=== PATIENT | male | born 1950 | race Caucasian/White ===

== ENCOUNTER 2018-02-13 16:43 | Inpatient (IN) | payer MEDICARE, OTHER ==
[~2018-02-13] VITALS: Ht 185.4 cm; Wt 109.3 kg
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
--- NOTE | 2018-02-13 17:32 | EKG ---
[address] [address] Test Date: 2018-02-13 Test Time: 17:27:51 Pat Name: ANTHONY TATUM Department: Room: Gender: M Loans Officer: : 1950 Requested By: XIOMARA HERRERA Order Number: [id number] Reading MD: Omar Hansen MD Measurements Intervals [place] Rate: 72 P: 47 NC: 168 QRS: 7 QRSD: 88 T: 19 QT: 368 QTc: 404 Interpretive Statements SINUS RHYTHM Electronically Signed On 02-14-2018 12:48:43 CDT by Omar Hansen MD
[2018-02-13 18:41] LABS: BASO % 0 % (0-3); EOS # 0.1 x10^3/uL (0.0-0.7); EOS % 1 % (0-3); HEMATOCRIT 38.2 % (39.0-53.0); HEMOGLOBIN 12.5 g/dL (13.0-17.5); LYMPH # 2.3 x10^3/uL (1.0-4.8); LYMPH % 21 % (24-48); MEAN CORPUSCULAR HEMOGLOBIN 26 pg (25-35); MEAN CORPUSCULAR HGB CONC 33 g/dL (31-37); MEAN CORPUSCULAR VOLUME 79 fL (79-100); MONO # 0.6 x10^3/uL (0.0-1.1); MONO % 6 % (0-9); NEUT # 7.8 x10^3uL (1.8-7.7); NEUT % 72 % (31-73); PLATELET COUNT 291 x10^3/uL (140-400); RED BLOOD COUNT 4.87 x10^6/uL (4.30-5.70); RED CELL DISTRIBUTION WIDTH 14.4 % (11.5-14.5); WHITE BLOOD COUNT 10.9 x10^3/uL (4.0-11.0)
[2018-02-13 18:53] LABS: ALBUMIN 3.2 g/dL (3.4-5.0); CALCIUM 8.3 mg/dL (8.5-10.1); CREATININE 1.3 mg/dL (0.7-1.3); DIRECT BILIRUBIN 0.1 mg/dL (0.0-0.2); GFR 54.7; POTASSIUM 3.5 mmol/L (3.5-5.1); TOTAL BILIRUBIN 0.3 mg/dL (0.2-1.0); TOTAL PROTEIN 7.1 g/dL (6.4-8.2)
[2018-02-13 19:28] LABS: BACTERIA,URINE MANY /HPF (0-FEW); BILIRUBIN,URINE NEG (NEG); CLARITY,URINE CLEAR; COLOR,URINE YELLOW; GLUCOSE,URINE NEG (NEG); NITRITE,URINE NEG (NEG); RBC,URINE 0 /HPF (0-2); UROBILINOGEN,URINE 0.2 mg/dL (0.2 mg/dL); WBC,URINE >40 /HPF (0-4)
[2018-02-13] MEDS ORDERED: MAGNESIUM CHLORIDE ER 64 MG TABLET.ER PO ONE (20:00)
[2018-02-13] MEDS ORDERED: MAG HYDROX/AL HYDROX/SIMETH 30 ML ORAL.SUSP PO PRN (21:30)
[2018-02-13] MEDS ORDERED: MAGNESIUM HYDROXIDE 2,400 MG/30 ML ORAL.SUSP. PO PRN (21:30)
[2018-02-13] MEDS ORDERED: METHYL SALICYLATE/MENTHOL TOPICAL OINTMENT 29GM TUBE. TP PRN (21:30)
[2018-02-13] MEDS ORDERED: ACETAMINOPHEN 325 MG TABLET PO PRN (21:30)
[2018-02-13 21:59] VITALS: BP 132/53
[2018-02-13] MEDS ORDERED: CLOP75TA PO (22:15)
[2018-02-13] MEDS ORDERED: LEVO100T5 PO (22:15)
[2018-02-13] MEDS ORDERED: SPIR25TA PO (22:15)
[2018-02-13] MEDS ORDERED: OXYC5CAP PO (22:15)
[2018-02-13] MEDS ORDERED: MELA3TAB2 PO (22:15)
[2018-02-13] MEDS ORDERED: TRAZ-85 PO (22:15)
[2018-02-13] MEDS ORDERED: OMEP20TA8 PO (22:15)
[2018-02-13] MEDS ORDERED: ACET325T9 PO (22:15)
[2018-02-13] MEDS ORDERED: FLUO40CA2 PO (22:15)
[2018-02-13] MEDS ORDERED: POTA20TA4 PO (22:15)
[2018-02-13] MEDS ORDERED: FLUO20TA11 PO (22:15)
[2018-02-13] MEDS ORDERED: ESTR1TAB15 PO (22:15)
[2018-02-13] MEDS ORDERED: QUET50TA5 PO (22:15)
[2018-02-13] MEDS ORDERED: INSU100I13 SQ (22:15)
[2018-02-13] MEDS ORDERED: DILT90TA PO (22:15)
[2018-02-13] MEDS ORDERED: PRAZ2CAP2 PO (22:15)
[2018-02-13] MEDS ORDERED: DEXTROSE 50% 25 GM / 50ML DISP.SYRIN. IV PRN (22:30)
[2018-02-13] MEDS: QUEtiapine 50 MG TABLET. PO SCH (23:25)
[2018-02-13] MEDS: MELATONIN 3 MG TABLET PO SCH (23:26)
[2018-02-13] MEDS: PRAZOSIN 1 MG CAPSULE. PO SCH (23:26)
[2018-02-13] MEDS: traZODone 50 MG TABLET. PO SCH (23:26)
[2018-02-13] MEDS: INSULIN GLARGINE 300 UNITS/3 ML INSULN.PEN. SQ SCH (23:29)
[2018-02-14 05:56] VITALS: BP 125/47
[2018-02-14] MEDS: FLUoxetine HCL 20 MG CAPSULE PO SCH (07:49)
[2018-02-14] MEDS: PANTOPRAZOLE 40 MG TABLET. PO SCH (07:49)
[2018-02-14] MEDS: LEVOTHYROXINE 100 MCG TABLET PO SCH (07:49)
[2018-02-14] MEDS: POTASSIUM CHLORIDE 20 MEQ TABLET.ER. PO SCH (07:49)
[2018-02-14] MEDS: CLOPIDOGREL BISULFATE 75 MG TABLET PO SCH (07:49)
[2018-02-14] MEDS: dilTIAZem HCL 30 MG TABLET PO SCH (07:50)
[2018-02-14] MEDS: NICOTINE 14MG PATCH. TD SCH (07:53)
[2018-02-14] MEDS: ESTRADIOL 1 MG TABLET PO SCH (07:54)
[2018-02-14] MEDS: SPIRONOLACTONE 25 MG TABLET PO SCH (07:54)
[2018-02-14] MEDS: INSULIN LISPRO 300 UNITS/3 ML INSULN.PEN. SQ SCH ×3 (08:00→17:00)
[2018-02-14] MEDS ORDERED: NON FORMULARY ITEM (Fluoxetine Hcl 40 MG) PO SCH (09:00)
[2018-02-14 14:26] LABS: THYROID STIM HORMONE (TSH) 3.367 uIU/mL (0.358-3.740)
[2018-02-14] MEDS: MAGNESIUM OXIDE 400 MG TABLET PO SCH ×2 (14:36→20:30)
[2018-02-14 15:47] VITALS: BP 135/77
[2018-02-14 19:08] LABS: THYROXINE 9.1 ug/dL (4.5-12.0)
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
[2018-02-14] MEDS: QUEtiapine 50 MG TABLET. PO SCH (20:29)
[2018-02-14] MEDS: traZODone 50 MG TABLET. PO SCH (20:29)
[2018-02-14] MEDS: MELATONIN 3 MG TABLET PO SCH (20:30)
[2018-02-14] MEDS: PRAZOSIN 1 MG CAPSULE. PO SCH (20:30)
[2018-02-14] MEDS: INSULIN GLARGINE 300 UNITS/3 ML INSULN.PEN. SQ SCH (20:34)
--- NOTE | 2018-02-14 20:49 | PDOC ---
Exam Note: Giovanny Note: Please also refer to the separate dictated note~for this date of service dictated separately.~Patient seen individually. Discussed the patient with Nursing staff reviewed the chart.~Reviewed interim history and current functioning. Reviewed vital signs,~Labs/ Radiology~and current medications noted below. Continue current treatment with the changes noted in the dictated addendum note Assessment: Vital Signs: Vital Signs Date Time Temp Pulse Resp B/P (MAP) Pulse Ox O2 Delivery O2 Flow Rate FiO2 02/14/18 20:30 98 135/77 02/14/18 15:47 97.3 20 97 02/13/18 21:59 Room Air I&O Intake and Output 02/14/18 07:00 # Voids 1 Labs: Laboratory Tests Test 02/13/18 22:54 02/14/18 07:18 02/14/18 11:43 02/14/18 16:47 Glucose (Fingerstick) 121 mg/dL (70-99) H 139 mg/dL (70-99) H 268 mg/dL (70-99) H 136 mg/dL (70-99) H Test 02/14/18 19:32 Glucose (Fingerstick) 196 mg/dL (70-99) H Current Medications: Meds: Current Medications Magnesium Chloride (Mag Delay) 64 mg 1X ONCE PO Last administered on at 20:39; Start 02/13/18 at 20:00; Stop 02/13/18 at 20:01; Status DC Acetaminophen (Tylenol) 650 mg PRN Q6HRS PRN PO PAIN / TEMP; Start 02/13/18 at 21:30; Stop 02/13/18 at 22:41; Status DC Multi-Ingredient Ointment (Analgesic [place]) 1 valerie PRN QID PRN TP MUSCLE PAIN; Start 02/13/18 at 21:30 Al Hydroxide/Mg Hydroxide (Mylanta Plus Xs) 15 ml PRN AFTMEALHC PRN PO DYSPEPSIA; Start 02/13/18 at 21:30 Magnesium Hydroxide (Milk Of Magnesia) 2,400 mg PRN QHS PRN PO CONSTIPATION; Start 02/13/18 at 21:30 Nicotine (Nicoderm Cq 14mg) 1 patch DAILY TD Last administered on 02/14/18at 07: 53; Start 02/14/18 at 09:00 Estradiol (Estrace) 1 mg DAILY PO Last administered on 02/14/18 07:54; Start 02/14/18 at 09:00 Fluoxetine HCl (PROzac) 60 mg DAILY PO Last administered on 02/14/18 07:49; Start 02/14/18 at 09:00 Non-Formulary Medication (Fluoxetine Hcl ) 40 mg DAILY PO ; Start 02/14/18 at 09 :00; Stop 02/14/18 at 09:00; Status DC Melatonin 6 mg QHS PO Last administered on 02/14/18 20:30; Start 02/13/18 at 23:00 Quetiapine Fumarate (SEROquel) 50 mg QHS PO Last administered on 02/14/18 20: 29; Start 02/13/18 at 23:00 Trazodone HCl (Desyrel) 50 mg QHS PO Last administered on 02/14/18 20:29; Start 02/13/18 at 23:00 Acetaminophen (Tylenol) 650 mg PRN Q6HRS PRN PO PAIN / TEMP; Start 02/13/18 at 22:30 Clopidogrel Bisulfate (Plavix) 75 mg DAILY PO Last administered on 02/14/18 07 :49; Start 02/14/18 at 09:00 Insulin Glargine (Lantus) 32 units QHS SQ Last administered on 02/14/18 20:34 ; Start 02/13/18 at 23:00 Levothyroxine Sodium (Synthroid) 100 mcg DAILYAC PO Last administered on 07:49; Start 02/14/18 at 07:30 Potassium Chloride (Klor-Con) 20 meq DAILY PO Last administered on 02/14/18at 07 :49; Start 02/14/18 at 09:00 Diltiazem HCl (Cardizem) 45 mg DAILY PO ; Start 02/14/18 at 09:00 Pantoprazole Sodium (Protonix) 40 mg DAILYAC PO Last administered on 02/14/18 07:49; Start 02/14/18 at 07:30 Oxycodone HCl (Roxicodone) 5 mg PRN Q8HRS PRN PO PAIN; Start 02/13/18 at 22:30 Prazosin HCl (Minipress) 2 mg QHS PO Last administered on 9/18/18at 20:30; Start 02/13/18 at 23:00 Spironolactone (Aldactone) 25 mg DAILY PO ; Start 02/14/18 at 09:00 Insulin Human Lispro (HumaLOG) 0-7 UNITS TIDWMEALS SQ ; Start 02/14/18 at 08:00 Dextrose 12.5 gm PRN Q15MIN PRN IV SEE COMMENTS; Start 02/13/18 at 22:30 Magnesium Oxide (Magnesium Oxide) 400 mg TID PO Last administered on 02/14/18at 20:30; Start 02/14/18 at 14:00 Active Scripts Active Reported Tylenol (Acetaminophen) 325 Mg Tablet 650 Mg PO PRN Q6HRS PRN Trazodone Hcl 50 Mg Tablet 50 Mg PO QHS Seroquel (Quetiapine Fumarate) 50 Mg Tablet 50 Mg PO QHS Prazosin Hcl 2 Mg Capsule 2 Mg PO QHS Klor-Con M20 (Potassium Chloride) 20 Meq Tab.er.prt 20 Meq PO DAILY Oxycodone Hcl 5 Mg Capsule 5 Mg PO PRN Q8HRS PRN Omeprazole 20 Mg Tablet.dr 20 Mg PO DAILY Melatonin 3 Mg Tablet 6 Mg PO QHS Levothyroxine Sodium 100 Mcg Tablet 100 Mcg PO DAILYAC Lantus Solostar (Insulin Glargine,Hum.rec.anlog) 100 Unit/1 Ml Insuln.pen 32 Unit SQ QHS Fluoxetine Hcl 40 Mg Capsule 40 Mg PO DAILY Fluoxetine Hcl 20 Mg Tablet 20 Mg PO DAILY Estradiol 1 Mg Tablet 1 Mg PO DAILY Diltiazem Hcl Tablet (Diltiazem Hcl) 90 Mg Tablet 45 Mg PO DAILY Clopidogrel (Clopidogrel Bisulfate) 75 Mg Tablet 75 Mg PO DAILY Aldactone (Spironolactone) 25 Mg Tablet 25 Mg PO DAILY I have reviewed the current psychotropics carefully including drug interactions. Risk benefit ratio favors no change other than as noted in my dictated progress note. 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
[2018-02-15 04:12] LABS: HEMOGLOBIN A1C 7.7 % (4.8-5.6)
[2018-02-15 05:53] VITALS: BP 128/54
[2018-02-15] MEDS: LEVOTHYROXINE 100 MCG TABLET PO SCH (06:23)
[2018-02-15] MEDS: INSULIN LISPRO 300 UNITS/3 ML INSULN.PEN. SQ SCH ×3 (08:00→17:00)
[2018-02-15] MEDS: PANTOPRAZOLE 40 MG TABLET. PO SCH (08:40)
[2018-02-15] MEDS: SPIRONOLACTONE 25 MG TABLET PO SCH (08:42)
[2018-02-15] MEDS: dilTIAZem HCL 30 MG TABLET PO SCH (08:43)
[2018-02-15] MEDS: MAGNESIUM OXIDE 400 MG TABLET PO SCH ×3 (08:44→21:35)
[2018-02-15] MEDS: POTASSIUM CHLORIDE 20 MEQ TABLET.ER. PO SCH (08:44)
[2018-02-15] MEDS: FLUoxetine HCL 20 MG CAPSULE PO SCH (08:45)
[2018-02-15] MEDS: NICOTINE 14MG PATCH. TD SCH (08:45)
[2018-02-15] MEDS: CLOPIDOGREL BISULFATE 75 MG TABLET PO SCH (08:45)
[2018-02-15] MEDS: ESTRADIOL 1 MG TABLET PO SCH (08:47)
--- NOTE | 2018-02-15 09:09 | HP ---
ADMIT DATE: 02/14/2018 This is a late entry for date of service 02/14/2018 and covers elements not covered in my initial note of 02/14/2018. I met with the patient in the evening of 02/14/2018 for this evaluation and discussed with nursing staff at that time and several times before then including prior to the patient's admission after he was referred to us from [facility] by Dr. Dutta on account of bizarre behaviors including eating different objects including a pen and a $10 bill and the paper packets of the sugar whole. He was reportedly having symptoms of pica, was throwing objects, refusing cares, verbally aggressive at times of care. Reportedly, he had swallowed pin or entered it in his rectal area and it was found in his stool. He has been depressed, psychotic, isolative, angry, aggressive, has failed outpatient treatment including initiation of Seroquel resulting in this referral. He has also appeared more confused. CHIEF COMPLAINT: "I came here yesterday. I don't know where I was living." HISTORY OF PRESENT ILLNESS: The patient has a history of worsening symptoms of depression and psychosis. He has been having the above noted behaviors which have been fairly dangerous, posing a significant health risk to him. He has had sleep and appetite changes. Denies active suicidal or homicidal ideation. He has had some mood swings as well, worsening confusion. PAST PSYCHIATRIC HISTORY: As above. MEDICAL HISTORY: History of metabolic encephalopathy, type 2 diabetes mellitus, dysphagia, dysarthria, weakness, hypothyroidism, anemia, status post CVA, hemiplegia, vitamin deficiency. Accu-Cheks a.c. and at bedtime. ALLERGIES: LIPITOR LATEX. Takes medications whole. Diet is regular. Ambulates with wheelchair, propels himself. culture is pending. CURRENT PSYCHOTROPICS: Estradiol 1 mg daily, melatonin 6 mg at bedtime, Prozac 60 mg a day, Seroquel 50 mg at bedtime, trazodone 50 mg at bedtime. He has had some diarrhea and C. diff sample is awaited. FAMILY HISTORY: Noncontributory. SOCIAL HISTORY: No alcohol, drug abuse, physical, sexual or elder abuse history is noted. He is not known to be a perpetrator. REACTION TO HOSPITALIZATION: The patient accepting of it and he has been admitted by Marleen Snow, who is his power of litigation attorney associate and is his daughter. ASSETS: Supportive family, stable living at the above nursing facility. MENTAL STATUS EXAM: The patient was seen individually in his room the evening of 02/14/2018. He is oriented to himself and situation. Speech is coherent, has some latency. Abstraction fair, computation somewhat impaired, language function intact. He is able to do two steps on serial 7's. Speech coherent. Thought processes goal directed. Intellect average. Insight limited, judgment marginal. He appears somewhat paranoid, suspicious, but denies active suicidal or homicidal ideation. Mood is depressed, anxious. Affect is mood congruent. Attention span is short. Language function intact. LABORATORY DATA: Reviewed. IMPRESSION: Major depressive disorder with psychotic features; psychotic disorder, unspecified, probable major neurocognitive disorder, vascular with delusion, depression; anxiety disorder, unspecified; impulse control disorder, unspecified. Rest as above. PLAN: Admit to geropsychiatry unit at [facility]. I will see the patient daily individually from a psychiatric standpoint, medical followup with Dr. Marks/Dr. Justin. Continue the patient on his current psychotropics, observe baseline, consider increasing the Seroquel or changing to Geodon as an atypical antipsychotic. Estimated length of stay is 10-12 days. Disposition plans are back to [facility] once stable. EMY RADER MD DR: NIRAJ/yani JOB#: [id number] / [id number]
[2018-02-15] MEDS ORDERED: PNEUMOC CONJ VACC 23-VALENT 0.5 ML VIAL. VAX IM ONE (13:00)
[2018-02-15 16:47] VITALS: BP 150/50
--- NOTE | 2018-02-15 21:08 | PDOC ---
Exam Note: Giovanny Note: Please also refer to the separate dictated note~for this date of service dictated separately.~Patient seen individually. Discussed the patient with Nursing staff reviewed the chart.~Reviewed interim history and current functioning. Reviewed vital signs,~Labs/ Radiology~and current medications noted below. Continue current treatment with the changes noted in the dictated addendum note Assessment: Vital Signs: Vital Signs Date Time Temp Pulse Resp B/P (MAP) Pulse Ox O2 Delivery O2 Flow Rate FiO2 02/15/18 16:47 98.6 77 20 150/50 (83) 96 Room Air I&O Intake and Output 02/15/18 07:00 Intake Total 940 ml Balance 940 ml Intake Oral 940 ml # Bowel Movements 3 Labs: Laboratory Tests Test 02/15/18 08:09 02/15/18 11:45 02/15/18 16:46 Glucose (Fingerstick) 136 mg/dL (70-99) H 121 mg/dL (70-99) H 200 mg/dL (70-99) H Current Medications: Meds: Current Medications Magnesium Chloride (Mag Delay) 64 mg 1X ONCE PO Last administered on at 20:39; Start 02/13/18 at 20:00; Stop 02/13/18 at 20:01; Status DC Acetaminophen (Tylenol) 650 mg PRN Q6HRS PRN PO PAIN / TEMP; Start 02/13/18 at 21:30; Stop 02/13/18 at 22:41; Status DC Multi-Ingredient Ointment (Analgesic [place]) 1 valerie PRN QID PRN TP MUSCLE PAIN; Start 02/13/18 at 21:30 Al Hydroxide/Mg Hydroxide (Mylanta Plus Xs) 15 ml PRN AFTMEALHC PRN PO DYSPEPSIA; Start 02/13/18 at 21:30 Magnesium Hydroxide (Milk Of Magnesia) 2,400 mg PRN QHS PRN PO CONSTIPATION; Start 02/13/18 at 21:30 Nicotine (Nicoderm Cq 14mg) 1 patch DAILY TD Last administered on 02/15/18at 08: 45; Start 02/14/18 at 09:00; Stop 02/15/18 at 15:45; Status DC Estradiol (Estrace) 1 mg DAILY PO Last administered on 02/15/18at 08:47; Start 02/14/18 at 09:00 Fluoxetine HCl (PROzac) 60 mg DAILY PO Last administered on 02/15/18 08:45; Start 02/14/18 at 09:00 Non-Formulary Medication (Fluoxetine Hcl ) 40 mg DAILY PO ; Start 02/14/18 at 09 :00; Stop 02/14/18 at 09:00; Status DC Melatonin 6 mg QHS PO Last administered on 02/14/18 20:30; Start 02/13/18 at 23:00 Quetiapine Fumarate (SEROquel) 50 mg QHS PO Last administered on 02/14/18at 20: 29; Start 02/13/18 at 23:00; Stop 02/15/18 at 17:11; Status DC Trazodone HCl (Desyrel) 50 mg QHS PO Last administered on 02/14/18at 20:29; Start 02/13/18 at 23:00 Acetaminophen (Tylenol) 650 mg PRN Q6HRS PRN PO PAIN / TEMP; Start 02/13/18 at 22:30 Clopidogrel Bisulfate (Plavix) 75 mg DAILY PO Last administered on 02/15/18at 08 :45; Start 02/14/18 at 09:00 Insulin Glargine (Lantus) 32 units QHS SQ Last administered on 02/14/18at 20:34 ; Start 02/13/18 at 23:00 Levothyroxine Sodium (Synthroid) 100 mcg DAILYAC PO Last administered on at 06:23; Start 02/14/18 at 07:30 Potassium Chloride (Klor-Con) 20 meq DAILY PO Last administered on 02/15/18at 08 :44; Start 02/14/18 at 09:00 Diltiazem HCl (Cardizem) 45 mg DAILY PO Last administered on 02/15/18at 08:43; Start 02/14/18 at 09:00 Pantoprazole Sodium (Protonix) 40 mg DAILYAC PO Last administered on 02/15/18at 08:40; Start 02/14/18 at 07:30 Oxycodone HCl (Roxicodone) 5 mg PRN Q8HRS PRN PO PAIN; Start 02/13/18 at 22:30 Prazosin HCl (Minipress) 2 mg QHS PO Last administered on 02/14/18at 20:30; Start 02/13/18 at 23:00 Spironolactone (Aldactone) 25 mg DAILY PO Last administered on 02/15/18at 08:42 ; Start 02/14/18 at 09:00 Insulin Human Lispro (HumaLOG) 0-7 UNITS TIDWMEALS SQ Last administered on 02/15at 17:00; Start 02/14/18 at 08:00 Dextrose 12.5 gm PRN Q15MIN PRN IV SEE COMMENTS; Start 02/13/18 at 22:30 Magnesium Oxide (Magnesium Oxide) 400 mg TID PO Last administered on 02/15/18at 13:59; Start 02/14/18 at 14:00 Influenza Virus Vaccine (Afluria Trivalent [id number] Syringe) 0.5 ml ONCE ONCE VAX IM ; Start 02/15/18 at 13:00; Stop 02/15/18 at 13:01; Status DC Pneumococcal Polyvalent Vaccine (Pneumovax 23) 0.5 ml ONCE ONCE VAX IM Last administered on 02/15/18at 13:59; Start 02/15/18 at 13:00; Stop 02/15/18 at 13:01 ; Status DC Quetiapine Fumarate (SEROquel) 75 mg QHS PO ; Start 02/15/18 at 21:00 Active Scripts Active Reported Tylenol (Acetaminophen) 325 Mg Tablet 650 Mg PO PRN Q6HRS PRN Trazodone Hcl 50 Mg Tablet 50 Mg PO QHS Seroquel (Quetiapine Fumarate) 50 Mg Tablet 50 Mg PO QHS Prazosin Hcl 2 Mg Capsule 2 Mg PO QHS Klor-Con M20 (Potassium Chloride) 20 Meq Tab.er.prt 20 Meq PO DAILY Oxycodone Hcl 5 Mg Capsule 5 Mg PO PRN Q8HRS PRN Omeprazole 20 Mg Tablet.dr 20 Mg PO DAILY Melatonin 3 Mg Tablet 6 Mg PO QHS Levothyroxine Sodium 100 Mcg Tablet 100 Mcg PO DAILYAC Lantus Solostar (Insulin Glargine,Hum.rec.anlog) 100 Unit/1 Ml Insuln.pen 32 Unit SQ QHS Fluoxetine Hcl 40 Mg Capsule 40 Mg PO DAILY Fluoxetine Hcl 20 Mg Tablet 20 Mg PO DAILY Estradiol 1 Mg Tablet 1 Mg PO DAILY Diltiazem Hcl Tablet (Diltiazem Hcl) 90 Mg Tablet 45 Mg PO DAILY Clopidogrel (Clopidogrel Bisulfate) 75 Mg Tablet 75 Mg PO DAILY Aldactone (Spironolactone) 25 Mg Tablet 25 Mg PO DAILY I have reviewed the current psychotropics carefully including drug interactions. Risk benefit ratio favors no change other than as noted in my dictated progress note. 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
[2018-02-15] MEDS: MELATONIN 3 MG TABLET PO SCH (21:35)
[2018-02-15] MEDS: PRAZOSIN 1 MG CAPSULE. PO SCH (21:36)
[2018-02-15] MEDS: QUEtiapine 50 MG TABLET. PO SCH (21:36)
[2018-02-15] MEDS: traZODone 50 MG TABLET. PO SCH (21:36)
[2018-02-15] MEDS: INSULIN GLARGINE 300 UNITS/3 ML INSULN.PEN. SQ SCH (21:39)
[2018-02-15] MEDS: ACETAMINOPHEN 325 MG TABLET PO PRN (21:46)
[2018-02-16 05:44] VITALS: BP 134/46
[2018-02-16] MEDS: INSULIN LISPRO 300 UNITS/3 ML INSULN.PEN. SQ SCH ×3 (08:00→17:00)
[2018-02-16] MEDS: LEVOTHYROXINE 100 MCG TABLET PO SCH (10:56)
[2018-02-16] MEDS: SPIRONOLACTONE 25 MG TABLET PO SCH (10:56)
[2018-02-16] MEDS: FLUoxetine HCL 20 MG CAPSULE PO SCH (10:56)
[2018-02-16] MEDS: dilTIAZem HCL 30 MG TABLET PO SCH (10:56)
[2018-02-16] MEDS: POTASSIUM CHLORIDE 20 MEQ TABLET.ER. PO SCH (10:57)
[2018-02-16] MEDS: CLOPIDOGREL BISULFATE 75 MG TABLET PO SCH (10:57)
[2018-02-16] MEDS: MAGNESIUM OXIDE 400 MG TABLET PO SCH ×3 (10:57→19:59)
[2018-02-16] MEDS: PANTOPRAZOLE 40 MG TABLET. PO SCH (10:57)
[2018-02-16] MEDS: ESTRADIOL 1 MG TABLET PO SCH (10:58)
[2018-02-16 16:47] VITALS: BP 152/89
[2018-02-16] MEDS: PRAZOSIN 1 MG CAPSULE. PO SCH (19:59)
[2018-02-16] MEDS: traZODone 50 MG TABLET. PO SCH (19:59)
[2018-02-16] MEDS: MELATONIN 3 MG TABLET PO SCH (20:00)
[2018-02-16] MEDS: QUEtiapine 50 MG TABLET. PO SCH (20:00)
[2018-02-16] MEDS: INSULIN GLARGINE 300 UNITS/3 ML INSULN.PEN. SQ SCH (20:04)
[2018-02-16] MEDS: ACETAMINOPHEN 325 MG TABLET PO PRN (20:08)
--- NOTE | 2018-02-16 20:42 | PDOC ---
Exam Note: Giovanny Note: Please also refer to the separate dictated note~for this date of service dictated separately.~Patient seen individually. Discussed the patient with Nursing staff reviewed the chart.~Reviewed interim history and current functioning. Reviewed vital signs,~Labs/ Radiology~and current medications noted below. Continue current treatment with the changes noted in the dictated addendum note Assessment: Vital Signs: Vital Signs Date Time Temp Pulse Resp B/P (MAP) Pulse Ox O2 Delivery O2 Flow Rate FiO2 02/16/18 19:59 98 152/89 02/16/18 16:47 97.2 20 100 02/15/18 16:47 Room Air I&O Intake and Output 02/16/18 07:00 Intake Total 720 ml Balance 720 ml Intake Oral 720 ml # Voids 2 # Bowel Movements 1 Labs: Laboratory Tests Test 02/16/18 07:28 02/16/18 12:01 02/16/18 16:44 Glucose (Fingerstick) 134 mg/dL (70-99) H 180 mg/dL (70-99) H 233 mg/dL (70-99) H Current Medications: Meds: Current Medications Magnesium Chloride (Mag Delay) 64 mg 1X ONCE PO Last administered on at 20:39; Start 02/13/18 at 20:00; Stop 02/13/18 at 20:01; Status DC Acetaminophen (Tylenol) 650 mg PRN Q6HRS PRN PO PAIN / TEMP; Start 02/13/18 at 21:30; Stop 02/13/18 at 22:41; Status DC Multi-Ingredient Ointment (Analgesic [place]) 1 valerie PRN QID PRN TP MUSCLE PAIN; Start 02/13/18 at 21:30 Al Hydroxide/Mg Hydroxide (Mylanta Plus Xs) 15 ml PRN AFTMEALHC PRN PO DYSPEPSIA; Start 02/13/18 at 21:30 Magnesium Hydroxide (Milk Of Magnesia) 2,400 mg PRN QHS PRN PO CONSTIPATION; Start 02/13/18 at 21:30 Nicotine (Nicoderm Cq 14mg) 1 patch DAILY TD Last administered on 02/15/18at 08: 45; Start 02/14/18 at 09:00; Stop 02/15/18 at 15:45; Status DC Estradiol (Estrace) 1 mg DAILY PO Last administered on 9/20/18at 10:58; Start 02/14/18 at 09:00 Fluoxetine HCl (PROzac) 60 mg DAILY PO Last administered on 02/16/18 10:56; Start 02/14/18 at 09:00 Non-Formulary Medication (Fluoxetine Hcl ) 40 mg DAILY PO ; Start 02/14/18 at 09 :00; Stop 02/14/18 at 09:00; Status DC Melatonin 6 mg QHS PO Last administered on 02/16/18at 20:00; Start 02/13/18 at 23:00 Quetiapine Fumarate (SEROquel) 50 mg QHS PO Last administered on 02/14/18at 20: 29; Start 02/13/18 at 23:00; Stop 02/15/18 at 17:11; Status DC Trazodone HCl (Desyrel) 50 mg QHS PO Last administered on 02/16/18at 19:59; Start 02/13/18 at 23:00 Acetaminophen (Tylenol) 650 mg PRN Q6HRS PRN PO PAIN / TEMP Last administered on 02/16/18at 20:08; Start 02/13/18 at 22:30 Clopidogrel Bisulfate (Plavix) 75 mg DAILY PO Last administered on 02/16/18 10 :57; Start 02/14/18 at 09:00 Insulin Glargine (Lantus) 32 units QHS SQ Last administered on 02/16/18at 20:04 ; Start 02/13/18 at 23:00 Levothyroxine Sodium (Synthroid) 100 mcg DAILYAC PO Last administered on at 10:56; Start 02/14/18 at 07:30 Potassium Chloride (Klor-Con) 20 meq DAILY PO Last administered on 02/16/18at 10 :57; Start 02/14/18 at 09:00 Diltiazem HCl (Cardizem) 45 mg DAILY PO Last administered on 02/16/18 10:56; Start 02/14/18 at 09:00 Pantoprazole Sodium (Protonix) 40 mg DAILYAC PO Last administered on 02/16/18 10:57; Start 02/14/18 at 07:30 Oxycodone HCl (Roxicodone) 5 mg PRN Q8HRS PRN PO PAIN; Start 02/13/18 at 22:30 Prazosin HCl (Minipress) 2 mg QHS PO Last administered on 02/16/18at 19:59; Start 02/13/18 at 23:00 Spironolactone (Aldactone) 25 mg DAILY PO Last administered on 02/16/18at 10:56 ; Start 02/14/18 at 09:00 Insulin Human Lispro (HumaLOG) 0-7 UNITS TIDWMEALS SQ Last administered on 02/16at 17:00; Start 02/14/18 at 08:00 Dextrose 12.5 gm PRN Q15MIN PRN IV SEE COMMENTS; Start 02/13/18 at 22:30 Magnesium Oxide (Magnesium Oxide) 400 mg TID PO Last administered on 02/16/18at 19:59; Start 02/14/18 at 14:00 Influenza Virus Vaccine (Afluria Trivalent [id number] Syringe) 0.5 ml ONCE ONCE VAX IM ; Start 02/15/18 at 13:00; Stop 02/15/18 at 13:01; Status DC Pneumococcal Polyvalent Vaccine (Pneumovax 23) 0.5 ml ONCE ONCE VAX IM Last administered on 02/15/18at 13:59; Start 02/15/18 at 13:00; Stop 02/15/18 at 13:01 ; Status DC Quetiapine Fumarate (SEROquel) 75 mg QHS PO Last administered on 02/16/18at 20: 00; Start 02/15/18 at 21:00 Active Scripts Active Reported Tylenol (Acetaminophen) 325 Mg Tablet 650 Mg PO PRN Q6HRS PRN Trazodone Hcl 50 Mg Tablet 50 Mg PO QHS Seroquel (Quetiapine Fumarate) 50 Mg Tablet 50 Mg PO QHS Prazosin Hcl 2 Mg Capsule 2 Mg PO QHS Klor-Con M20 (Potassium Chloride) 20 Meq Tab.er.prt 20 Meq PO DAILY Oxycodone Hcl 5 Mg Capsule 5 Mg PO PRN Q8HRS PRN Omeprazole 20 Mg Tablet.dr 20 Mg PO DAILY Melatonin 3 Mg Tablet 6 Mg PO QHS Levothyroxine Sodium 100 Mcg Tablet 100 Mcg PO DAILYAC Lantus Solostar (Insulin Glargine,Hum.rec.anlog) 100 Unit/1 Ml Insuln.pen 32 Unit SQ QHS Fluoxetine Hcl 40 Mg Capsule 40 Mg PO DAILY Fluoxetine Hcl 20 Mg Tablet 20 Mg PO DAILY Estradiol 1 Mg Tablet 1 Mg PO DAILY Diltiazem Hcl Tablet (Diltiazem Hcl) 90 Mg Tablet 45 Mg PO DAILY Clopidogrel (Clopidogrel Bisulfate) 75 Mg Tablet 75 Mg PO DAILY Aldactone (Spironolactone) 25 Mg Tablet 25 Mg PO DAILY I have reviewed the current psychotropics carefully including drug interactions. Risk benefit ratio favors no change other than as noted in my dictated progress note. 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
[2018-02-17 06:15] VITALS: BP 138/53
[2018-02-17] MEDS: INSULIN LISPRO 300 UNITS/3 ML INSULN.PEN. SQ SCH ×3 (08:00→17:49)
[2018-02-17] MEDS: SPIRONOLACTONE 25 MG TABLET PO SCH (09:02)
[2018-02-17] MEDS: POTASSIUM CHLORIDE 20 MEQ TABLET.ER. PO SCH (09:03)
[2018-02-17] MEDS: CLOPIDOGREL BISULFATE 75 MG TABLET PO SCH (09:03)
[2018-02-17] MEDS: dilTIAZem HCL 30 MG TABLET PO SCH (09:03)
[2018-02-17] MEDS: FLUoxetine HCL 20 MG CAPSULE PO SCH (09:03)
[2018-02-17] MEDS: PANTOPRAZOLE 40 MG TABLET. PO SCH (09:03)
[2018-02-17] MEDS: MAGNESIUM OXIDE 400 MG TABLET PO SCH ×3 (09:03→19:28)
[2018-02-17] MEDS: LEVOTHYROXINE 100 MCG TABLET PO SCH (09:04)
[2018-02-17] MEDS: ESTRADIOL 1 MG TABLET PO SCH (09:05)
[2018-02-17 16:42] VITALS: BP 131/55
[2018-02-17] MEDS ORDERED: LOPERAMIDE 2 MG CAPSULE PO PRN (17:30)
[2018-02-17] MEDS: traZODone 50 MG TABLET. PO SCH (19:28)
[2018-02-17] MEDS: QUEtiapine 50 MG TABLET. PO SCH (19:28)
[2018-02-17] MEDS: PRAZOSIN 1 MG CAPSULE. PO SCH (19:28)
[2018-02-17] MEDS: MELATONIN 3 MG TABLET PO SCH (19:29)
[2018-02-17] MEDS: AMOXICILLIN 250 MG CAPSULE PO SCH (19:31)
[2018-02-17] MEDS: LACTOBACILLUS RHAMNOSUS GG 1 CAPSULE. PO SCH (19:31)
[2018-02-17] MEDS: INSULIN GLARGINE 300 UNITS/3 ML INSULN.PEN. SQ SCH (19:40)
[2018-02-17] MEDS: LOPERAMIDE 2 MG CAPSULE PO PRN (20:32)
--- NOTE | 2018-02-17 20:45 | PDOC ---
Exam Note: Giovanny Note: Please also refer to the separate dictated note~for this date of service dictated separately.~Patient seen individually. Discussed the patient with Nursing staff reviewed the chart.~Reviewed interim history and current functioning. Reviewed vital signs,~Labs/ Radiology~and current medications noted below. Continue current treatment with the changes noted in the dictated addendum note Assessment: Vital Signs: Vital Signs Date Time Temp Pulse Resp B/P (MAP) Pulse Ox O2 Delivery O2 Flow Rate FiO2 02/17/18 19:28 67 131/55 02/17/18 16:42 98.4 20 94 02/15/18 16:47 Room Air I&O Intake and Output 02/17/18 07:00 Intake Total 360 ml Balance 360 ml Intake Oral 360 ml # Bowel Movements 4 Labs: Laboratory Tests Test 02/17/18 07:52 02/17/18 12:06 02/17/18 17:01 02/17/18 19:30 Glucose (Fingerstick) 178 mg/dL (70-99) H 180 mg/dL (70-99) H 163 mg/dL (70-99) H 246 mg/dL (70-99) H Current Medications: Meds: Current Medications Magnesium Chloride (Mag Delay) 64 mg 1X ONCE PO Last administered on at 20:39; Start 02/13/18 at 20:00; Stop 02/13/18 at 20:01; Status DC Acetaminophen (Tylenol) 650 mg PRN Q6HRS PRN PO PAIN / TEMP; Start 02/13/18 at 21:30; Stop 02/13/18 at 22:41; Status DC Multi-Ingredient Ointment (Analgesic [place]) 1 valerie PRN QID PRN TP MUSCLE PAIN; Start 02/13/18 at 21:30 Al Hydroxide/Mg Hydroxide (Mylanta Plus Xs) 15 ml PRN AFTMEALHC PRN PO DYSPEPSIA; Start 02/13/18 at 21:30 Magnesium Hydroxide (Milk Of Magnesia) 2,400 mg PRN QHS PRN PO CONSTIPATION; Start 02/13/18 at 21:30 Nicotine (Nicoderm Cq 14mg) 1 patch DAILY TD Last administered on 02/15/18at 08: 45; Start 02/14/18 at 09:00; Stop 02/15/18 at 15:45; Status DC Estradiol (Estrace) 1 mg DAILY PO Last administered on 02/17/18 09:05; Start 02/14/18 at 09:00 Fluoxetine HCl (PROzac) 60 mg DAILY PO Last administered on 02/17/18 09:03; Start 02/14/18 at 09:00 Non-Formulary Medication (Fluoxetine Hcl ) 40 mg DAILY PO ; Start 02/14/18 at 09 :00; Stop 02/14/18 at 09:00; Status DC Melatonin 6 mg QHS PO Last administered on 02/17/18 19:29; Start 02/13/18 at 23:00 Quetiapine Fumarate (SEROquel) 50 mg QHS PO Last administered on 02/14/18 20: 29; Start 02/13/18 at 23:00; Stop 02/15/18 at 17:11; Status DC Trazodone HCl (Desyrel) 50 mg QHS PO Last administered on 02/17/18 19:28; Start 02/13/18 at 23:00 Acetaminophen (Tylenol) 650 mg PRN Q6HRS PRN PO PAIN / TEMP Last administered on 02/16/18 20:08; Start 02/13/18 at 22:30 Clopidogrel Bisulfate (Plavix) 75 mg DAILY PO Last administered on 02/17/18 09 :03; Start 02/14/18 at 09:00 Insulin Glargine (Lantus) 32 units QHS SQ Last administered on 02/17/18 19:40 ; Start 02/13/18 at 23:00 Levothyroxine Sodium (Synthroid) 100 mcg DAILYAC PO Last administered on 09:04; Start 02/14/18 at 07:30 Potassium Chloride (Klor-Con) 20 meq DAILY PO Last administered on 02/17/18 09 :03; Start 02/14/18 at 09:00 Diltiazem HCl (Cardizem) 45 mg DAILY PO Last administered on 02/17/18 09:03; Start 02/14/18 at 09:00 Pantoprazole Sodium (Protonix) 40 mg DAILYAC PO Last administered on 02/17/18 09:03; Start 02/14/18 at 07:30 Oxycodone HCl (Roxicodone) 5 mg PRN Q8HRS PRN PO PAIN; Start 02/13/18 at 22:30 Prazosin HCl (Minipress) 2 mg QHS PO Last administered on 02/17/18 19:28; Start 02/13/18 at 23:00 Spironolactone (Aldactone) 25 mg DAILY PO Last administered on 02/17/18at 09:02 ; Start 02/14/18 at 09:00 Insulin Human Lispro (HumaLOG) 0-7 UNITS TIDWMEALS SQ Last administered on 02/17at 17:49; Start 02/14/18 at 08:00 Dextrose 12.5 gm PRN Q15MIN PRN IV SEE COMMENTS; Start 02/13/18 at 22:30 Magnesium Oxide (Magnesium Oxide) 400 mg TID PO Last administered on 02/17/18 19:28; Start 02/14/18 at 14:00 Influenza Virus Vaccine (Afluria Trivalent [id number] Syringe) 0.5 ml ONCE ONCE VAX IM ; Start 02/15/18 at 13:00; Stop 02/15/18 at 13:01; Status DC Pneumococcal Polyvalent Vaccine (Pneumovax 23) 0.5 ml ONCE ONCE VAX IM Last administered on 02/15/18at 13:59; Start 02/15/18 at 13:00; Stop 02/15/18 at 13:01 ; Status DC Quetiapine Fumarate (SEROquel) 75 mg QHS PO Last administered on 02/17/18 19: 28; Start 02/15/18 at 21:00 Amoxicillin (Amoxil) 500 mg [id number] PO Last administered on 02/17/18 19:31; Start 02/17/18 at 21:00; Stop 02/24/18 at 09:00 Lactobacillus Rhamnosus (Culturelle) 1 cap TID PO Last administered on 19:31; Start 02/17/18 at 21:00; Stop 02/28/18 at 21:00 Loperamide HCl (Imodium) 2 mg PRN Q1HR PRN PO DIARRHEA; Start 02/17/18 at 17:30 Loperamide HCl (Imodium) 4 mg PRN DAILY PRN PO DIARRHEA Last administered on at 20:32; Start 02/17/18 at 17:30 Active Scripts Active Reported Tylenol (Acetaminophen) 325 Mg Tablet 650 Mg PO PRN Q6HRS PRN Trazodone Hcl 50 Mg Tablet 50 Mg PO QHS Seroquel (Quetiapine Fumarate) 50 Mg Tablet 50 Mg PO QHS Prazosin Hcl 2 Mg Capsule 2 Mg PO QHS Klor-Con M20 (Potassium Chloride) 20 Meq Tab.er.prt 20 Meq PO DAILY Oxycodone Hcl 5 Mg Capsule 5 Mg PO PRN Q8HRS PRN Omeprazole 20 Mg Tablet.dr 20 Mg PO DAILY Melatonin 3 Mg Tablet 6 Mg PO QHS Levothyroxine Sodium 100 Mcg Tablet 100 Mcg PO DAILYAC Lantus Solostar (Insulin Glargine,Hum.rec.anlog) 100 Unit/1 Ml Insuln.pen 32 Unit SQ QHS Fluoxetine Hcl 40 Mg Capsule 40 Mg PO DAILY Fluoxetine Hcl 20 Mg Tablet 20 Mg PO DAILY Estradiol 1 Mg Tablet 1 Mg PO DAILY Diltiazem Hcl Tablet (Diltiazem Hcl) 90 Mg Tablet 45 Mg PO DAILY Clopidogrel (Clopidogrel Bisulfate) 75 Mg Tablet 75 Mg PO DAILY Aldactone (Spironolactone) 25 Mg Tablet 25 Mg PO DAILY I have reviewed the current psychotropics carefully including drug interactions. Risk benefit ratio favors no change other than as noted in my dictated progress note. 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
--- NOTE | 2018-02-17 23:19 | PN ---
DATE: 02/15/2018 PSYCHIATRIC PROGRESS NOTE This late entry 02/15/2018 covers elements not covered in my initial note. SUBJECTIVE: Met with the patient in the evening in his room. He remains in contact precautions secondary to possible C. diff and I will defer to Dr. Marks. Overall, he complains of pain, impaired ambulation. Otherwise, he has been pleasant, slept 7 hours previous night, oriented to himself. Remains somewhat paranoid, suspicious. Background history from the family indicates a lifelong history of agitation, mood lability, aggressive behavior within the family. REVIEW OF SYSTEMS: No CV, , pulmonary, eye system symptoms on review, still complains of some diarrhea. MENTAL STATUS EXAM: Oriented to himself and situation. Speech coherent, abstraction fair, computation impaired, language function intact. Mood and affect remain somewhat labile and he appears confused. LABORATORY DATA: Reviewed. IMPRESSION: Unchanged from initial note. PLAN: No change from initial note. EMY RADER MD DR: NIRAJ/yani JOB#: [id number] / [id number]
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
[2018-02-18 06:40] VITALS: BP 121/51
[2018-02-18] MEDS: CLOPIDOGREL BISULFATE 75 MG TABLET PO SCH (07:57)
[2018-02-18] MEDS: AMOXICILLIN 250 MG CAPSULE PO SCH ×3 (07:57→20:33)
[2018-02-18] MEDS: PANTOPRAZOLE 40 MG TABLET. PO SCH (07:58)
[2018-02-18] MEDS: MAGNESIUM OXIDE 400 MG TABLET PO SCH ×3 (07:58→20:34)
[2018-02-18] MEDS: FLUoxetine HCL 20 MG CAPSULE PO SCH (07:58)
[2018-02-18] MEDS: SPIRONOLACTONE 25 MG TABLET PO SCH (07:58)
[2018-02-18] MEDS: LACTOBACILLUS RHAMNOSUS GG 1 CAPSULE. PO SCH ×3 (07:58→20:34)
[2018-02-18] MEDS: POTASSIUM CHLORIDE 20 MEQ TABLET.ER. PO SCH (07:58)
[2018-02-18] MEDS: LEVOTHYROXINE 100 MCG TABLET PO SCH (07:58)
[2018-02-18] MEDS: ESTRADIOL 1 MG TABLET PO SCH (07:58)
[2018-02-18] MEDS: dilTIAZem HCL 30 MG TABLET PO SCH (07:59)
[2018-02-18] MEDS: INSULIN LISPRO 300 UNITS/3 ML INSULN.PEN. SQ SCH ×3 (08:00→17:27)
[2018-02-18 16:19] VITALS: BP 131/64
[2018-02-18] MEDS: QUEtiapine 50 MG TABLET. PO SCH (20:33)
[2018-02-18] MEDS: PRAZOSIN 1 MG CAPSULE. PO SCH (20:34)
[2018-02-18] MEDS: MELATONIN 3 MG TABLET PO SCH (20:34)
[2018-02-18] MEDS: traZODone 50 MG TABLET. PO SCH (20:35)
[2018-02-18] MEDS: INSULIN GLARGINE 300 UNITS/3 ML INSULN.PEN. SQ SCH (20:36)
--- NOTE | 2018-02-18 22:58 | PDOC ---
Exam Note: Giovanny Note: Please also refer to the separate dictated note~for this date of service dictated separately.~Patient seen individually. Discussed the patient with Nursing staff reviewed the chart.~Reviewed interim history and current functioning. Reviewed vital signs,~Labs/ Radiology~and current medications noted below. Continue current treatment with the changes noted in the dictated addendum note Assessment: Vital Signs: Vital Signs Date Time Temp Pulse Resp B/P (MAP) Pulse Ox O2 Delivery O2 Flow Rate FiO2 02/18/18 20:34 69 131/64 02/18/18 16:19 98.2 20 96 02/18/18 06:40 Room Air I&O Intake and Output 02/18/18 07:00 Intake Total 720 ml Balance 720 ml Intake Oral 720 ml # Bowel Movements 2 Labs: Laboratory Tests Test 02/18/18 07:35 02/18/18 10:51 02/18/18 12:46 02/18/18 17:04 Glucose (Fingerstick) 132 mg/dL (70-99) H 222 mg/dL (70-99) H 245 mg/dL (70-99) H 176 mg/dL (70-99) H Test 02/18/18 19:35 Glucose (Fingerstick) 202 mg/dL (70-99) H Current Medications: Meds: Current Medications Magnesium Chloride (Mag Delay) 64 mg 1X ONCE PO Last administered on at 20:39; Start 02/13/18 at 20:00; Stop 02/13/18 at 20:01; Status DC Acetaminophen (Tylenol) 650 mg PRN Q6HRS PRN PO PAIN / TEMP; Start 02/13/18 at 21:30; Stop 02/13/18 at 22:41; Status DC Multi-Ingredient Ointment (Analgesic [place]) 1 valerie PRN QID PRN TP MUSCLE PAIN; Start 02/13/18 at 21:30 Al Hydroxide/Mg Hydroxide (Mylanta Plus Xs) 15 ml PRN AFTMEALHC PRN PO DYSPEPSIA; Start 02/13/18 at 21:30 Magnesium Hydroxide (Milk Of Magnesia) 2,400 mg PRN QHS PRN PO CONSTIPATION; Start 02/13/18 at 21:30 Nicotine (Nicoderm Cq 14mg) 1 patch DAILY TD Last administered on 02/15/18at 08: 45; Start 02/14/18 at 09:00; Stop 02/15/18 at 15:45; Status DC Estradiol (Estrace) 1 mg DAILY PO Last administered on 02/18/18 07:58; Start 02/14/18 at 09:00 Fluoxetine HCl (PROzac) 60 mg DAILY PO Last administered on 02/18/18 07:58; Start 02/14/18 at 09:00 Non-Formulary Medication (Fluoxetine Hcl ) 40 mg DAILY PO ; Start 02/14/18 at 09 :00; Stop 02/14/18 at 09:00; Status DC Melatonin 6 mg QHS PO Last administered on 02/18/18 20:34; Start 02/13/18 at 23:00 Quetiapine Fumarate (SEROquel) 50 mg QHS PO Last administered on 02/14/18 20: 29; Start 02/13/18 at 23:00; Stop 02/15/18 at 17:11; Status DC Trazodone HCl (Desyrel) 50 mg QHS PO Last administered on 02/18/18 20:35; Start 02/13/18 at 23:00 Acetaminophen (Tylenol) 650 mg PRN Q6HRS PRN PO PAIN / TEMP Last administered on 02/16/18 20:08; Start 02/13/18 at 22:30 Clopidogrel Bisulfate (Plavix) 75 mg DAILY PO Last administered on 02/18/18 07 :57; Start 02/14/18 at 09:00 Insulin Glargine (Lantus) 32 units QHS SQ Last administered on 02/18/18 20:36 ; Start 02/13/18 at 23:00 Levothyroxine Sodium (Synthroid) 100 mcg DAILYAC PO Last administered on 07:58; Start 02/14/18 at 07:30 Potassium Chloride (Klor-Con) 20 meq DAILY PO Last administered on 02/18/18 07 :58; Start 02/14/18 at 09:00 Diltiazem HCl (Cardizem) 45 mg DAILY PO Last administered on 02/18/18 07:59; Start 02/14/18 at 09:00 Pantoprazole Sodium (Protonix) 40 mg DAILYAC PO Last administered on 02/18/18 07:58; Start 02/14/18 at 07:30 Oxycodone HCl (Roxicodone) 5 mg PRN Q8HRS PRN PO PAIN; Start 02/13/18 at 22:30 Prazosin HCl (Minipress) 2 mg QHS PO Last administered on 02/18/18at 20:34; Start 02/13/18 at 23:00 Spironolactone (Aldactone) 25 mg DAILY PO Last administered on 02/18/18at 07:58 ; Start 02/14/18 at 09:00 Insulin Human Lispro (HumaLOG) 0-7 UNITS TIDWMEALS SQ Last administered on 02/18 17:27; Start 02/14/18 at 08:00 Dextrose 12.5 gm PRN Q15MIN PRN IV SEE COMMENTS; Start 02/13/18 at 22:30 Magnesium Oxide (Magnesium Oxide) 400 mg TID PO Last administered on 02/18/18at 20:34; Start 02/14/18 at 14:00 Influenza Virus Vaccine (Afluria Trivalent [id number] Syringe) 0.5 ml ONCE ONCE VAX IM ; Start 02/15/18 at 13:00; Stop 02/15/18 at 13:01; Status DC Pneumococcal Polyvalent Vaccine (Pneumovax 23) 0.5 ml ONCE ONCE VAX IM Last administered on 02/15/18at 13:59; Start 02/15/18 at 13:00; Stop 02/15/18 at 13:01 ; Status DC Quetiapine Fumarate (SEROquel) 75 mg QHS PO Last administered on 02/18/18at 20: 33; Start 02/15/18 at 21:00 Amoxicillin (Amoxil) 500 mg [id number] PO Last administered on 02/18/18at 20:33; Start 02/17/18 at 21:00; Stop 02/24/18 at 09:00 Lactobacillus Rhamnosus (Culturelle) 1 cap TID PO Last administered on at 20:34; Start 02/17/18 at 21:00; Stop 02/28/18 at 21:00 Loperamide HCl (Imodium) 2 mg PRN Q1HR PRN PO DIARRHEA; Start 02/17/18 at 17:30 Loperamide HCl (Imodium) 4 mg PRN DAILY PRN PO DIARRHEA Last administered on at 20:32; Start 02/17/18 at 17:30 Divalproex Sodium (Depakote Sprinkles) 125 mg BIDWMEALS PO ; Start 02/19/18 at 08:00 Active Scripts Active Reported Tylenol (Acetaminophen) 325 Mg Tablet 650 Mg PO PRN Q6HRS PRN Trazodone Hcl 50 Mg Tablet 50 Mg PO QHS Seroquel (Quetiapine Fumarate) 50 Mg Tablet 50 Mg PO QHS Prazosin Hcl 2 Mg Capsule 2 Mg PO QHS Klor-Con M20 (Potassium Chloride) 20 Meq Tab.er.prt 20 Meq PO DAILY Oxycodone Hcl 5 Mg Capsule 5 Mg PO PRN Q8HRS PRN Omeprazole 20 Mg Tablet.dr 20 Mg PO DAILY Melatonin 3 Mg Tablet 6 Mg PO QHS Levothyroxine Sodium 100 Mcg Tablet 100 Mcg PO DAILYAC Lantus Solostar (Insulin Glargine,Hum.rec.anlog) 100 Unit/1 Ml Insuln.pen 32 Unit SQ QHS Fluoxetine Hcl 40 Mg Capsule 40 Mg PO DAILY Fluoxetine Hcl 20 Mg Tablet 20 Mg PO DAILY Estradiol 1 Mg Tablet 1 Mg PO DAILY Diltiazem Hcl Tablet (Diltiazem Hcl) 90 Mg Tablet 45 Mg PO DAILY Clopidogrel (Clopidogrel Bisulfate) 75 Mg Tablet 75 Mg PO DAILY Aldactone (Spironolactone) 25 Mg Tablet 25 Mg PO DAILY I have reviewed the current psychotropics carefully including drug interactions. Risk benefit ratio favors no change other than as noted in my dictated progress note. 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
[2018-02-19 06:13] VITALS: BP 124/64
[2018-02-19] MEDS: INSULIN LISPRO 300 UNITS/3 ML INSULN.PEN. SQ SCH ×3 (08:00→17:08)
[2018-02-19] MEDS: MAGNESIUM OXIDE 400 MG TABLET PO SCH ×3 (08:02→20:27)
[2018-02-19] MEDS: POTASSIUM CHLORIDE 20 MEQ TABLET.ER. PO SCH (08:05)
[2018-02-19] MEDS: LACTOBACILLUS RHAMNOSUS GG 1 CAPSULE. PO SCH ×3 (08:05→20:27)
[2018-02-19] MEDS: ESTRADIOL 1 MG TABLET PO SCH (08:05)
[2018-02-19] MEDS: dilTIAZem HCL 30 MG TABLET PO SCH (08:05)
[2018-02-19] MEDS: SPIRONOLACTONE 25 MG TABLET PO SCH (08:05)
[2018-02-19] MEDS: AMOXICILLIN 250 MG CAPSULE PO SCH ×3 (08:05→20:28)
[2018-02-19] MEDS: LEVOTHYROXINE 100 MCG TABLET PO SCH (08:06)
[2018-02-19] MEDS: FLUoxetine HCL 20 MG CAPSULE PO SCH (08:06)
[2018-02-19] MEDS: PANTOPRAZOLE 40 MG TABLET. PO SCH (08:06)
[2018-02-19] MEDS: CLOPIDOGREL BISULFATE 75 MG TABLET PO SCH (08:06)
[2018-02-19] MEDS: DIVALPROEX 125 MG CAP.SPRINK PO SCH ×2 (08:11→15:42)
[2018-02-19 08:17] LABS: BASO # 0.1 x10^3/uL (0.0-0.2); BASO % 1 % (0-3); EOS # 0.2 x10^3/uL (0.0-0.7); EOS % 2 % (0-3); HEMATOCRIT 36.2 % (39.0-53.0); HEMOGLOBIN 11.6 g/dL (13.0-17.5); LYMPH # 1.7 x10^3/uL (1.0-4.8); LYMPH % 17 % (24-48); MEAN CORPUSCULAR HEMOGLOBIN 25 pg (25-35); MEAN CORPUSCULAR HGB CONC 32 g/dL (31-37); MEAN CORPUSCULAR VOLUME 79 fL (79-100); MONO # 0.8 x10^3/uL (0.0-1.1); MONO % 8 % (0-9); NEUT # 7.3 x10^3uL (1.8-7.7); NEUT % 73 % (31-73); PLATELET COUNT 254 x10^3/uL (140-400); RED CELL DISTRIBUTION WIDTH 14.5 % (11.5-14.5)
[2018-02-19 08:37] LABS: ALBUMIN 3.1 g/dL (3.4-5.0); ALBUMIN/GLOBULIN RATIO 0.8 (1.0-1.7); CALCIUM 8.4 mg/dL (8.5-10.1); CREATININE 1.4 mg/dL (0.7-1.3); GFR 50.2; POTASSIUM 3.5 mmol/L (3.5-5.1); TOTAL BILIRUBIN 0.3 mg/dL (0.2-1.0); TOTAL PROTEIN 6.8 g/dL (6.4-8.2)
--- NOTE | 2018-02-19 09:33 | PN ---
DATE: 02/19/2018 PSYCHIATRIC PROGRESS NOTE This late entry 02/17/2018 covers elements not covered in my initial note. SUBJECTIVE: I met with the patient in the evening. The patient does have a UTI, has been started on Amoxil. C. diff is negative. He has been withdrawn to his room, refuses to come out of his room, slept 5-1/2 hours previous night, little more agitated around 2:30 p.m. REVIEW OF SYSTEMS: Ambulation impaired. No CV, , pulmonary, eye system symptoms on review. MENTAL STATUS EXAM: Oriented to himself and situation. Speech coherent, abstraction fair, computation impaired, language function intact. Mood and affect remain somewhat anxious. LABORATORY DATA: Reviewed. IMPRESSION: Unchanged from initial note. PLAN: Treat the UTI. Continue rest unchanged. May consider adding Depakote as a mood stabilizer given the extensive history of impulsive over controlling aggressive behavior is a lifelong as shared by the family. MAN Gertrude RADER MD DR: NIRAJ/yani JOB#: [id number] / [id number]
[2018-02-19] MEDS: oxyCODONE IR 5 MG TABLET PO PRN (15:42)
[2018-02-19 16:29] VITALS: BP 152/63
[2018-02-19] MEDS: QUEtiapine 50 MG TABLET. PO SCH (20:27)
[2018-02-19] MEDS: traZODone 50 MG TABLET. PO SCH (20:28)
[2018-02-19] MEDS: PRAZOSIN 1 MG CAPSULE. PO SCH (20:28)
[2018-02-19] MEDS: MELATONIN 3 MG TABLET PO SCH (20:28)
[2018-02-19] MEDS: INSULIN GLARGINE 300 UNITS/3 ML INSULN.PEN. SQ SCH (20:31)
--- NOTE | 2018-02-19 20:58 | PDOC ---
Exam Note: Giovanny Note: Please also refer to the separate dictated note~for this date of service dictated separately.~Patient seen individually. Discussed the patient with Nursing staff reviewed the chart.~Reviewed interim history and current functioning. Reviewed vital signs,~Labs/ Radiology~and current medications noted below. Continue current treatment with the changes noted in the dictated addendum note Assessment: Vital Signs: Vital Signs Date Time Temp Pulse Resp B/P (MAP) Pulse Ox O2 Delivery O2 Flow Rate FiO2 02/19/18 20:28 75 152/63 02/19/18 16:43 18 02/19/18 16:29 98.9 95 02/19/18 06:13 Room Air I&O Intake and Output 02/19/18 07:00 Intake Total 1200 ml Balance 1200 ml Intake Oral 1200 ml Labs: Laboratory Tests Test 02/19/18 05:20 02/19/18 07:25 02/19/18 07:40 02/19/18 12:47 Glucose (Fingerstick) 90 mg/dL (70-99) 101 mg/dL (70-99) H 201 mg/dL (70-99) H White Blood Count 10.0 x10^3/uL (4.0-11.0) Red Blood Count 4.60 x10^6/uL (4.30-5.70) Hemoglobin 11.6 g/dL (13.0-17.5) L Hematocrit 36.2 % (39.0-53.0) L Mean Corpuscular Volume 79 fL (79-100) Mean Corpuscular Hemoglobin 25 pg (25-35) Mean Corpuscular Hemoglobin Concent 32 g/dL (31-37) Red Cell Distribution Width 14.5 % (11.5-14.5) Platelet Count 254 x10^3/uL (140-400) Neutrophils (%) (Auto) 73 % (31-73) Lymphocytes (%) (Auto) 17 % (24-48) L Monocytes (%) (Auto) 8 % (0-9) Eosinophils (%) (Auto) 2 % (0-3) Basophils (%) (Auto) 1 % (0-3) Neutrophils # (Auto) 7.3 x10^3uL (1.8-7.7) Lymphocytes # (Auto) 1.7 x10^3/uL (1.0-4.8) Monocytes # (Auto) 0.8 x10^3/uL (0.0-1.1) Eosinophils # (Auto) 0.2 x10^3/uL (0.0-0.7) Basophils # (Auto) 0.1 x10^3/uL (0.0-0.2) Sodium Level 141 mmol/L (136-145) Potassium Level 3.5 mmol/L (3.5-5.1) Chloride Level 106 mmol/L (98-107) Carbon Dioxide Level 29 mmol/L (21-32) Anion Gap 6 (6-14) Blood Urea Nitrogen 17 mg/dL (8-26) Creatinine 1.4 mg/dL (0.7-1.3) H Estimated GFR (Cockcroft-Gault) 50.2 BUN/Creatinine Ratio 12 (6-20) Glucose Level 97 mg/dL (70-99) Calcium Level 8.4 mg/dL (8.5-10.1) L Total Bilirubin 0.3 mg/dL (0.2-1.0) Aspartate Amino Transferase (AST) 12 U/L (15-37) L Alanine Aminotransferase (ALT) 17 U/L (16-63) Alkaline Phosphatase 70 U/L (46-116) Total Protein 6.8 g/dL (6.4-8.2) Albumin 3.1 g/dL (3.4-5.0) L Albumin/Globulin Ratio 0.8 (1.0-1.7) L Test 02/19/18 16:52 02/19/18 19:36 Glucose (Fingerstick) 223 mg/dL (70-99) H 268 mg/dL (70-99) H Current Medications: Meds: Current Medications Magnesium Chloride (Mag Delay) 64 mg 1X ONCE PO Last administered on at 20:39; Start 02/13/18 at 20:00; Stop 02/13/18 at 20:01; Status DC Acetaminophen (Tylenol) 650 mg PRN Q6HRS PRN PO PAIN / TEMP; Start 02/13/18 at 21:30; Stop 02/13/18 at 22:41; Status DC Multi-Ingredient Ointment (Analgesic [place]) 1 valerie PRN QID PRN TP MUSCLE PAIN; Start 02/13/18 at 21:30 Al Hydroxide/Mg Hydroxide (Mylanta Plus Xs) 15 ml PRN AFTMEALHC PRN PO DYSPEPSIA; Start 02/13/18 at 21:30 Magnesium Hydroxide (Milk Of Magnesia) 2,400 mg PRN QHS PRN PO CONSTIPATION; Start 02/13/18 at 21:30 Nicotine (Nicoderm Cq 14mg) 1 patch DAILY TD Last administered on 02/15/18at 08: 45; Start 02/14/18 at 09:00; Stop 02/15/18 at 15:45; Status DC Estradiol (Estrace) 1 mg DAILY PO Last administered on 02/19/18 08:05; Start 02/14/18 at 09:00 Fluoxetine HCl (PROzac) 60 mg DAILY PO Last administered on 02/19/18 08:06; Start 02/14/18 at 09:00 Non-Formulary Medication (Fluoxetine Hcl ) 40 mg DAILY PO ; Start 02/14/18 at 09 :00; Stop 02/14/18 at 09:00; Status DC Melatonin 6 mg QHS PO Last administered on 02/19/18at 20:28; Start 02/13/18 at 23:00 Quetiapine Fumarate (SEROquel) 50 mg QHS PO Last administered on 02/14/18at 20: 29; Start 02/13/18 at 23:00; Stop 02/15/18 at 17:11; Status DC Trazodone HCl (Desyrel) 50 mg QHS PO Last administered on 02/19/18at 20:28; Start 02/13/18 at 23:00 Acetaminophen (Tylenol) 650 mg PRN Q6HRS PRN PO PAIN / TEMP Last administered on 02/16/18at 20:08; Start 02/13/18 at 22:30 Clopidogrel Bisulfate (Plavix) 75 mg DAILY PO Last administered on 02/19/18at 08 :06; Start 02/14/18 at 09:00 Insulin Glargine (Lantus) 32 units QHS SQ Last administered on 02/19/18at 20:31 ; Start 02/13/18 at 23:00 Levothyroxine Sodium (Synthroid) 100 mcg DAILYAC PO Last administered on at 08:06; Start 02/14/18 at 07:30 Potassium Chloride (Klor-Con) 20 meq DAILY PO Last administered on 02/19/18 08 :05; Start 02/14/18 at 09:00 Diltiazem HCl (Cardizem) 45 mg DAILY PO Last administered on 02/19/18 08:05; Start 02/14/18 at 09:00 Pantoprazole Sodium (Protonix) 40 mg DAILYAC PO Last administered on 02/19/18 08:06; Start 02/14/18 at 07:30 Oxycodone HCl (Roxicodone) 5 mg PRN Q8HRS PRN PO PAIN Last administered on 02/19 15:42; Start 02/13/18 at 22:30 Prazosin HCl (Minipress) 2 mg QHS PO Last administered on 02/19/18 20:28; Start 02/13/18 at 23:00 Spironolactone (Aldactone) 25 mg DAILY PO Last administered on 02/19/18 08:05 ; Start 02/14/18 at 09:00 Insulin Human Lispro (HumaLOG) 0-7 UNITS TIDWMEALS SQ Last administered on 02/19 17:08; Start 02/14/18 at 08:00 Dextrose 12.5 gm PRN Q15MIN PRN IV SEE COMMENTS; Start 02/13/18 at 22:30 Magnesium Oxide (Magnesium Oxide) 400 mg TID PO Last administered on 02/19/18 20:27; Start 02/14/18 at 14:00 Influenza Virus Vaccine (Afluria Trivalent [id number] Syringe) 0.5 ml ONCE ONCE VAX IM ; Start 02/15/18 at 13:00; Stop 02/15/18 at 13:01; Status DC Pneumococcal Polyvalent Vaccine (Pneumovax 23) 0.5 ml ONCE ONCE VAX IM Last administered on 02/15/18at 13:59; Start 02/15/18 at 13:00; Stop 02/15/18 at 13:01 ; Status DC Quetiapine Fumarate (SEROquel) 75 mg QHS PO Last administered on 02/19/18 20: 27; Start 02/15/18 at 21:00 Amoxicillin (Amoxil) 500 mg [id number] PO Last administered on 02/19/18 20:28; Start 02/17/18 at 21:00; Stop 02/24/18 at 09:00 Lactobacillus Rhamnosus (Culturelle) 1 cap TID PO Last administered on at 20:27; Start 02/17/18 at 21:00; Stop 02/28/18 at 21:00 Loperamide HCl (Imodium) 2 mg PRN Q1HR PRN PO DIARRHEA; Start 02/17/18 at 17:30 Loperamide HCl (Imodium) 4 mg PRN DAILY PRN PO DIARRHEA Last administered on at 20:32; Start 02/17/18 at 17:30 Divalproex Sodium (Depakote Sprinkles) 125 mg BIDWMEALS PO Last administered on 02/19/18at 15:42; Start 02/19/18 at 08:00 Active Scripts Active Reported Tylenol (Acetaminophen) 325 Mg Tablet 650 Mg PO PRN Q6HRS PRN Trazodone Hcl 50 Mg Tablet 50 Mg PO QHS Seroquel (Quetiapine Fumarate) 50 Mg Tablet 50 Mg PO QHS Prazosin Hcl 2 Mg Capsule 2 Mg PO QHS Klor-Con M20 (Potassium Chloride) 20 Meq Tab.er.prt 20 Meq PO DAILY Oxycodone Hcl 5 Mg Capsule 5 Mg PO PRN Q8HRS PRN Omeprazole 20 Mg Tablet.dr 20 Mg PO DAILY Melatonin 3 Mg Tablet 6 Mg PO QHS Levothyroxine Sodium 100 Mcg Tablet 100 Mcg PO DAILYAC Lantus Solostar (Insulin Glargine,Hum.rec.anlog) 100 Unit/1 Ml Insuln.pen 32 Unit SQ QHS Fluoxetine Hcl 40 Mg Capsule 40 Mg PO DAILY Fluoxetine Hcl 20 Mg Tablet 20 Mg PO DAILY Estradiol 1 Mg Tablet 1 Mg PO DAILY Diltiazem Hcl Tablet (Diltiazem Hcl) 90 Mg Tablet 45 Mg PO DAILY Clopidogrel (Clopidogrel Bisulfate) 75 Mg Tablet 75 Mg PO DAILY Aldactone (Spironolactone) 25 Mg Tablet 25 Mg PO DAILY I have reviewed the current psychotropics carefully including drug interactions. Risk benefit ratio favors no change other than as noted in my dictated progress note. 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
[2018-02-20 05:54] VITALS: BP 160/71
[2018-02-20] MEDS: INSULIN LISPRO 300 UNITS/3 ML INSULN.PEN. SQ SCH ×3 (08:00→17:45)
[2018-02-20] MEDS: PANTOPRAZOLE 40 MG TABLET. PO SCH (08:11)
[2018-02-20] MEDS: LEVOTHYROXINE 100 MCG TABLET PO SCH (08:11)
[2018-02-20] MEDS: DIVALPROEX 125 MG CAP.SPRINK PO SCH ×2 (08:12→17:44)
[2018-02-20] MEDS: SPIRONOLACTONE 25 MG TABLET PO SCH (08:13)
[2018-02-20] MEDS: MAGNESIUM OXIDE 400 MG TABLET PO SCH ×3 (08:15→20:29)
[2018-02-20] MEDS: LACTOBACILLUS RHAMNOSUS GG 1 CAPSULE. PO SCH ×3 (08:15→20:29)
[2018-02-20] MEDS: dilTIAZem HCL 30 MG TABLET PO SCH (08:15)
[2018-02-20] MEDS: POTASSIUM CHLORIDE 20 MEQ TABLET.ER. PO SCH (08:15)
[2018-02-20] MEDS: CLOPIDOGREL BISULFATE 75 MG TABLET PO SCH (08:16)
[2018-02-20] MEDS: FLUoxetine HCL 20 MG CAPSULE PO SCH (08:17)
[2018-02-20] MEDS: AMOXICILLIN 250 MG CAPSULE PO SCH ×3 (08:19→20:29)
[2018-02-20] MEDS: ESTRADIOL 1 MG TABLET PO SCH (08:19)
[2018-02-20] MEDS: LOPERAMIDE 2 MG CAPSULE PO PRN (14:33)
[2018-02-20 16:07] VITALS: BP 165/72
[2018-02-20] MEDS: MELATONIN 3 MG TABLET PO SCH (20:29)
[2018-02-20] MEDS: QUEtiapine 50 MG TABLET. PO SCH (20:29)
[2018-02-20] MEDS: traZODone 50 MG TABLET. PO SCH (20:29)
[2018-02-20] MEDS: PRAZOSIN 1 MG CAPSULE. PO SCH (20:29)
[2018-02-20] MEDS: INSULIN GLARGINE 300 UNITS/3 ML INSULN.PEN. SQ SCH (20:30)
--- NOTE | 2018-02-20 21:15 | PN ---
DATE: 02/18/2018 This late entry for 02/18/2018 covers elements not covered in my initial note. SUBJECTIVE: I met with him in his room. He has been withdrawn, slept 5-3/4 hours previous evening, remains somewhat labile at times. Given the history from the family, seems to have a history suggestive of impulse control disorder, depression, rule out bipolar disorder, unspecified. REVIEW OF SYSTEMS: Denies any diarrhea, impaired ambulation. No CV, , pulmonary, eye, ENT system symptoms on review. MENTAL STATUS EXAM: Oriented to himself and situation. Speech is coherent, abstraction fair, computation impaired, language function intact, attention span short. Mood and affect somewhat anxious, labile at times. LABORATORY DATA: Reviewed. IMPRESSION: Major depressive disorder, rule out psychotic features, bipolar 1 disorder, unspecified; anxiety disorder, unspecified. PLAN: Start Depakote Sprinkles 125 mg twice a day. Check CBC, CMP, valproic acid level in 3 days. Continue Prozac, Seroquel, trazodone at current dosage. MAN Gertrude RADER MD DR: NIRAJ/yani JOB#: [id number] / [id number]
--- NOTE | 2018-02-20 21:17 | PN ---
DATE: 02/19/2018 This is a late entry for 02/19/2018 covers elements not covered in my initial note. SUBJECTIVE: I met with the patient in the evening. The patient slept 6-1/2 hours previous night. I met with him in his room. Overall, mood is better. He is less agitated and anxious. No diarrhea is noted. REVIEW OF SYSTEMS: Ambulation impaired. No CV, , pulmonary, eye, ENT system symptoms on review. MENTAL STATUS EXAM: Oriented to himself and situation. Speech is coherent, less pressured. Abstraction fair, computation impaired, language function intact. Mood and affect remains somewhat anxious, at times labile, but improved. LABORATORY DATA: Reviewed. IMPRESSION: Major depressive disorder with psychotic features; anxiety disorder, unspecified; bipolar 1 disorder, unspecified; impulse control disorder. PLAN: Continue current psychotropics including Depakote, which was added. Follow labs level. Adjust as indicated. MAN Gertrude RADER MD DR: NIRAJ/yani JOB#: [id number] / [id number]
[2018-02-20] MEDS: oxyCODONE IR 5 MG TABLET PO PRN (22:11)
--- NOTE | 2018-02-20 22:42 | PDOC ---
Exam Note: Giovanny Note: Please also refer to the separate dictated note~for this date of service dictated separately.~Patient seen individually. Discussed the patient with Nursing staff reviewed the chart.~Reviewed interim history and current functioning. Reviewed vital signs,~Labs/ Radiology~and current medications noted below. Continue current treatment with the changes noted in the dictated addendum note Assessment: Vital Signs: Vital Signs Date Time Temp Pulse Resp B/P (MAP) Pulse Ox O2 Delivery O2 Flow Rate FiO2 02/20/18 22:11 96 02/20/18 20:29 68 165/72 02/20/18 16:07 97.3 17 Room Air I&O Intake and Output 02/20/18 07:00 Intake Total 1300 ml Balance 1300 ml Intake Oral 1300 ml Labs: Laboratory Tests Test 02/20/18 07:41 02/20/18 11:17 02/20/18 16:29 02/20/18 19:54 Glucose (Fingerstick) 126 mg/dL (70-99) H 145 mg/dL (70-99) H 225 mg/dL (70-99) H 218 mg/dL (70-99) H Current Medications: Meds: Current Medications Magnesium Chloride (Mag Delay) 64 mg 1X ONCE PO Last administered on at 20:39; Start 02/13/18 at 20:00; Stop 02/13/18 at 20:01; Status DC Acetaminophen (Tylenol) 650 mg PRN Q6HRS PRN PO PAIN / TEMP; Start 02/13/18 at 21:30; Stop 02/13/18 at 22:41; Status DC Multi-Ingredient Ointment (Analgesic [place]) 1 valerie PRN QID PRN TP MUSCLE PAIN; Start 02/13/18 at 21:30 Al Hydroxide/Mg Hydroxide (Mylanta Plus Xs) 15 ml PRN AFTMEALHC PRN PO DYSPEPSIA; Start 02/13/18 at 21:30 Magnesium Hydroxide (Milk Of Magnesia) 2,400 mg PRN QHS PRN PO CONSTIPATION; Start 02/13/18 at 21:30 Nicotine (Nicoderm Cq 14mg) 1 patch DAILY TD Last administered on 02/15/18at 08: 45; Start 02/14/18 at 09:00; Stop 02/15/18 at 15:45; Status DC Estradiol (Estrace) 1 mg DAILY PO Last administered on 02/20/18 08:19; Start 02/14/18 at 09:00 Fluoxetine HCl (PROzac) 60 mg DAILY PO Last administered on 02/20/18 08:17; Start 02/14/18 at 09:00 Non-Formulary Medication (Fluoxetine Hcl ) 40 mg DAILY PO ; Start 02/14/18 at 09 :00; Stop 02/14/18 at 09:00; Status DC Melatonin 6 mg QHS PO Last administered on 02/20/18 20:29; Start 02/13/18 at 23:00 Quetiapine Fumarate (SEROquel) 50 mg QHS PO Last administered on 02/14/18 20: 29; Start 02/13/18 at 23:00; Stop 02/15/18 at 17:11; Status DC Trazodone HCl (Desyrel) 50 mg QHS PO Last administered on 02/20/18 20:29; Start 02/13/18 at 23:00 Acetaminophen (Tylenol) 650 mg PRN Q6HRS PRN PO PAIN / TEMP Last administered on 02/16/18 20:08; Start 02/13/18 at 22:30 Clopidogrel Bisulfate (Plavix) 75 mg DAILY PO Last administered on 02/20/18 08 :16; Start 02/14/18 at 09:00 Insulin Glargine (Lantus) 32 units QHS SQ Last administered on 02/20/18 20:30 ; Start 02/13/18 at 23:00 Levothyroxine Sodium (Synthroid) 100 mcg DAILYAC PO Last administered on 08:11; Start 02/14/18 at 07:30 Potassium Chloride (Klor-Con) 20 meq DAILY PO Last administered on 02/20/18 08 :15; Start 02/14/18 at 09:00 Diltiazem HCl (Cardizem) 45 mg DAILY PO Last administered on 02/20/18 08:15; Start 02/14/18 at 09:00 Pantoprazole Sodium (Protonix) 40 mg DAILYAC PO Last administered on 02/20/18 08:11; Start 02/14/18 at 07:30 Oxycodone HCl (Roxicodone) 5 mg PRN Q8HRS PRN PO PAIN Last administered on 02/20 22:11; Start 02/13/18 at 22:30 Prazosin HCl (Minipress) 2 mg QHS PO Last administered on 02/20/18 20:29; Start 02/13/18 at 23:00 Spironolactone (Aldactone) 25 mg DAILY PO Last administered on 02/20/18 08:13 ; Start 02/14/18 at 09:00 Insulin Human Lispro (HumaLOG) 0-7 UNITS TIDWMEALS SQ Last administered on 02/20 17:45; Start 02/14/18 at 08:00 Dextrose 12.5 gm PRN Q15MIN PRN IV SEE COMMENTS; Start 02/13/18 at 22:30 Magnesium Oxide (Magnesium Oxide) 400 mg TID PO Last administered on 02/20/18 20:29; Start 02/14/18 at 14:00 Influenza Virus Vaccine (Afluria Trivalent [id number] Syringe) 0.5 ml ONCE ONCE VAX IM ; Start 02/15/18 at 13:00; Stop 02/15/18 at 13:01; Status DC Pneumococcal Polyvalent Vaccine (Pneumovax 23) 0.5 ml ONCE ONCE VAX IM Last administered on 02/15/18at 13:59; Start 02/15/18 at 13:00; Stop 02/15/18 at 13:01 ; Status DC Quetiapine Fumarate (SEROquel) 75 mg QHS PO Last administered on 02/20/18 20: 29; Start 02/15/18 at 21:00 Amoxicillin (Amoxil) 500 mg [id number] PO Last administered on 02/20/18 20:29; Start 02/17/18 at 21:00; Stop 02/24/18 at 09:00 Lactobacillus Rhamnosus (Culturelle) 1 cap TID PO Last administered on 20:29; Start 02/17/18 at 21:00; Stop 02/28/18 at 21:00 Loperamide HCl (Imodium) 2 mg PRN Q1HR PRN PO DIARRHEA; Start 02/17/18 at 17:30 Loperamide HCl (Imodium) 4 mg PRN DAILY PRN PO DIARRHEA Last administered on at 14:33; Start 02/17/18 at 17:30 Divalproex Sodium (Depakote Sprinkles) 125 mg BIDWMEALS PO Last administered on 02/20/18at 17:44; Start 02/19/18 at 08:00 Active Scripts Active Reported Tylenol (Acetaminophen) 325 Mg Tablet 650 Mg PO PRN Q6HRS PRN Trazodone Hcl 50 Mg Tablet 50 Mg PO QHS Seroquel (Quetiapine Fumarate) 50 Mg Tablet 50 Mg PO QHS Prazosin Hcl 2 Mg Capsule 2 Mg PO QHS Klor-Con M20 (Potassium Chloride) 20 Meq Tab.er.prt 20 Meq PO DAILY Oxycodone Hcl 5 Mg Capsule 5 Mg PO PRN Q8HRS PRN Omeprazole 20 Mg Tablet.dr 20 Mg PO DAILY Melatonin 3 Mg Tablet 6 Mg PO QHS Levothyroxine Sodium 100 Mcg Tablet 100 Mcg PO DAILYAC Lantus Solostar (Insulin Glargine,Hum.rec.anlog) 100 Unit/1 Ml Insuln.pen 32 Unit SQ QHS Fluoxetine Hcl 40 Mg Capsule 40 Mg PO DAILY Fluoxetine Hcl 20 Mg Tablet 20 Mg PO DAILY Estradiol 1 Mg Tablet 1 Mg PO DAILY Diltiazem Hcl Tablet (Diltiazem Hcl) 90 Mg Tablet 45 Mg PO DAILY Clopidogrel (Clopidogrel Bisulfate) 75 Mg Tablet 75 Mg PO DAILY Aldactone (Spironolactone) 25 Mg Tablet 25 Mg PO DAILY I have reviewed the current psychotropics carefully including drug interactions. Risk benefit ratio favors no change other than as noted in my dictated progress note. 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
[2018-02-21 05:39] VITALS: BP 110/66
[2018-02-21] MEDS: LACTOBACILLUS RHAMNOSUS GG 1 CAPSULE. PO SCH ×3 (08:52→20:07)
[2018-02-21] MEDS: DIVALPROEX 125 MG CAP.SPRINK PO SCH ×2 (08:52→17:44)
[2018-02-21] MEDS: LEVOTHYROXINE 100 MCG TABLET PO SCH (08:52)
[2018-02-21] MEDS: FLUoxetine HCL 20 MG CAPSULE PO SCH (08:55)
[2018-02-21] MEDS: POTASSIUM CHLORIDE 20 MEQ TABLET.ER. PO SCH (08:55)
[2018-02-21] MEDS: MAGNESIUM OXIDE 400 MG TABLET PO SCH ×3 (08:56→20:08)
[2018-02-21] MEDS: PANTOPRAZOLE 40 MG TABLET. PO SCH (08:56)
[2018-02-21] MEDS: SPIRONOLACTONE 25 MG TABLET PO SCH (08:56)
[2018-02-21] MEDS: CLOPIDOGREL BISULFATE 75 MG TABLET PO SCH (08:56)
[2018-02-21] MEDS: AMOXICILLIN 250 MG CAPSULE PO SCH ×3 (08:56→20:07)
[2018-02-21] MEDS: ESTRADIOL 1 MG TABLET PO SCH (08:59)
[2018-02-21] MEDS: dilTIAZem HCL 30 MG TABLET PO SCH (09:00)
[2018-02-21] MEDS: INSULIN LISPRO 300 UNITS/3 ML INSULN.PEN. SQ SCH ×3 (09:06→17:00)
[2018-02-21 15:42] VITALS: BP 176/73
[2018-02-21] MEDS: QUEtiapine 50 MG TABLET. PO SCH (20:06)
[2018-02-21] MEDS: PRAZOSIN 1 MG CAPSULE. PO SCH (20:06)
[2018-02-21] MEDS: MELATONIN 3 MG TABLET PO SCH (20:07)
[2018-02-21] MEDS: traZODone 50 MG TABLET. PO SCH (20:07)
[2018-02-21] MEDS: INSULIN GLARGINE 300 UNITS/3 ML INSULN.PEN. SQ SCH (20:09)
--- NOTE | 2018-02-21 20:52 | PDOC ---
Exam Note: Giovanny Note: Please also refer to the separate dictated note~for this date of service dictated separately.~Patient seen individually. Discussed the patient with Nursing staff reviewed the chart.~Reviewed interim history and current functioning. Reviewed vital signs,~Labs/ Radiology~and current medications noted below. Continue current treatment with the changes noted in the dictated addendum note Assessment: Vital Signs: Vital Signs Date Time Temp Pulse Resp B/P (MAP) Pulse Ox O2 Delivery O2 Flow Rate FiO2 02/21/18 20:06 66 176/73 02/21/18 15:42 97.6 20 97 Room Air I&O Intake and Output 02/21/18 07:00 Intake Total 1200 ml Balance 1200 ml Intake Oral 1200 ml # Bowel Movements 1 Labs: Laboratory Tests Test 02/21/18 07:34 02/21/18 11:28 02/21/18 16:49 02/21/18 19:30 Glucose (Fingerstick) 168 mg/dL (70-99) H 256 mg/dL (70-99) H 131 mg/dL (70-99) H 237 mg/dL (70-99) H Current Medications: Meds: Current Medications Magnesium Chloride (Mag Delay) 64 mg 1X ONCE PO Last administered on at 20:39; Start 02/13/18 at 20:00; Stop 02/13/18 at 20:01; Status DC Acetaminophen (Tylenol) 650 mg PRN Q6HRS PRN PO PAIN / TEMP; Start 02/13/18 at 21:30; Stop 02/13/18 at 22:41; Status DC Multi-Ingredient Ointment (Analgesic [place]) 1 valerie PRN QID PRN TP MUSCLE PAIN; Start 02/13/18 at 21:30 Al Hydroxide/Mg Hydroxide (Mylanta Plus Xs) 15 ml PRN AFTMEALHC PRN PO DYSPEPSIA; Start 02/13/18 at 21:30 Magnesium Hydroxide (Milk Of Magnesia) 2,400 mg PRN QHS PRN PO CONSTIPATION; Start 02/13/18 at 21:30 Nicotine (Nicoderm Cq 14mg) 1 patch DAILY TD Last administered on 02/15/18at 08: 45; Start 02/14/18 at 09:00; Stop 02/15/18 at 15:45; Status DC Estradiol (Estrace) 1 mg DAILY PO Last administered on 02/21/18 08:59; Start 02/14/18 at 09:00 Fluoxetine HCl (PROzac) 60 mg DAILY PO Last administered on 02/21/18 08:55; Start 02/14/18 at 09:00 Non-Formulary Medication (Fluoxetine Hcl ) 40 mg DAILY PO ; Start 02/14/18 at 09 :00; Stop 02/14/18 at 09:00; Status DC Melatonin 6 mg QHS PO Last administered on 02/21/18 20:07; Start 02/13/18 at 23:00 Quetiapine Fumarate (SEROquel) 50 mg QHS PO Last administered on 02/14/18 20: 29; Start 02/13/18 at 23:00; Stop 02/15/18 at 17:11; Status DC Trazodone HCl (Desyrel) 50 mg QHS PO Last administered on 02/21/18 20:07; Start 02/13/18 at 23:00 Acetaminophen (Tylenol) 650 mg PRN Q6HRS PRN PO PAIN / TEMP Last administered on 02/16/18 20:08; Start 02/13/18 at 22:30 Clopidogrel Bisulfate (Plavix) 75 mg DAILY PO Last administered on 02/21/18 08 :56; Start 02/14/18 at 09:00 Insulin Glargine (Lantus) 32 units QHS SQ Last administered on 02/21/18 20:09 ; Start 02/13/18 at 23:00 Levothyroxine Sodium (Synthroid) 100 mcg DAILYAC PO Last administered on 08:52; Start 02/14/18 at 07:30 Potassium Chloride (Klor-Con) 20 meq DAILY PO Last administered on 02/21/18 08 :55; Start 02/14/18 at 09:00 Diltiazem HCl (Cardizem) 45 mg DAILY PO Last administered on 02/20/18 08:15; Start 02/14/18 at 09:00 Pantoprazole Sodium (Protonix) 40 mg DAILYAC PO Last administered on 02/21/18 08:56; Start 02/14/18 at 07:30 Oxycodone HCl (Roxicodone) 5 mg PRN Q8HRS PRN PO PAIN Last administered on 9/24 /18at 22:11; Start 02/13/18 at 22:30 Prazosin HCl (Minipress) 2 mg QHS PO Last administered on 02/21/18 20:06; Start 02/13/18 at 23:00 Spironolactone (Aldactone) 25 mg DAILY PO Last administered on 02/21/18 08:56 ; Start 02/14/18 at 09:00 Insulin Human Lispro (HumaLOG) 0-7 UNITS TIDWMEALS SQ Last administered on 02/21at 12:47; Start 02/14/18 at 08:00 Dextrose 12.5 gm PRN Q15MIN PRN IV SEE COMMENTS; Start 02/13/18 at 22:30 Magnesium Oxide (Magnesium Oxide) 400 mg TID PO Last administered on 02/21/18at 20:08; Start 02/14/18 at 14:00 Influenza Virus Vaccine (Afluria Trivalent [id number] Syringe) 0.5 ml ONCE ONCE VAX IM ; Start 02/15/18 at 13:00; Stop 02/15/18 at 13:01; Status DC Pneumococcal Polyvalent Vaccine (Pneumovax 23) 0.5 ml ONCE ONCE VAX IM Last administered on 02/15/18at 13:59; Start 02/15/18 at 13:00; Stop 02/15/18 at 13:01 ; Status DC Quetiapine Fumarate (SEROquel) 75 mg QHS PO Last administered on 02/20/18at 20: 29; Start 02/15/18 at 21:00; Stop 02/21/18 at 16:57; Status DC Amoxicillin (Amoxil) 500 mg [id number] PO Last administered on 02/21/18at 20:07; Start 02/17/18 at 21:00; Stop 02/24/18 at 09:00 Lactobacillus Rhamnosus (Culturelle) 1 cap TID PO Last administered on 20:07; Start 02/17/18 at 21:00; Stop 02/28/18 at 21:00 Loperamide HCl (Imodium) 2 mg PRN Q1HR PRN PO DIARRHEA; Start 02/17/18 at 17:30 Loperamide HCl (Imodium) 4 mg PRN DAILY PRN PO DIARRHEA Last administered on at 14:33; Start 02/17/18 at 17:30 Divalproex Sodium (Depakote Sprinkles) 125 mg BIDWMEALS PO Last administered on 02/21/18at 17:44; Start 02/19/18 at 08:00 Mupirocin (Bactroban) 1 valerie BID TP ; Start 02/21/18 at 21:00 Quetiapine Fumarate (SEROquel) 100 mg QHS PO Last administered on 02/21/18at 20: 06; Start 02/21/18 at 21:00 Active Scripts Active Reported Tylenol (Acetaminophen) 325 Mg Tablet 650 Mg PO PRN Q6HRS PRN Trazodone Hcl 50 Mg Tablet 50 Mg PO QHS Seroquel (Quetiapine Fumarate) 50 Mg Tablet 50 Mg PO QHS Prazosin Hcl 2 Mg Capsule 2 Mg PO QHS Klor-Con M20 (Potassium Chloride) 20 Meq Tab.er.prt 20 Meq PO DAILY Oxycodone Hcl 5 Mg Capsule 5 Mg PO PRN Q8HRS PRN Omeprazole 20 Mg Tablet.dr 20 Mg PO DAILY Melatonin 3 Mg Tablet 6 Mg PO QHS Levothyroxine Sodium 100 Mcg Tablet 100 Mcg PO DAILYAC Lantus Solostar (Insulin Glargine,Hum.rec.anlog) 100 Unit/1 Ml Insuln.pen 32 Unit SQ QHS Fluoxetine Hcl 40 Mg Capsule 40 Mg PO DAILY Fluoxetine Hcl 20 Mg Tablet 20 Mg PO DAILY Estradiol 1 Mg Tablet 1 Mg PO DAILY Diltiazem Hcl Tablet (Diltiazem Hcl) 90 Mg Tablet 45 Mg PO DAILY Clopidogrel (Clopidogrel Bisulfate) 75 Mg Tablet 75 Mg PO DAILY Aldactone (Spironolactone) 25 Mg Tablet 25 Mg PO DAILY I have reviewed the current psychotropics carefully including drug interactions. Risk benefit ratio favors no change other than as noted in my dictated progress note. 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
[2018-02-21] MEDS: MUPIROCIN 2% TOPICAL OINTMENT 22GM TUBE. TP SCH (21:00)
--- NOTE | 2018-02-21 22:43 | PN ---
DATE: 02/20/2018 This is a late entry for 02/20/2018 covers elements not covered in my initial note. SUBJECTIVE: I met with the patient in the evening. The patient slept 7 hours previous night. C. diff is negative. He has had no bowel movement. He is compliant with medications. Overall, less irritable. REVIEW OF SYSTEMS: Ambulation impaired, in wheelchair. No CV, , pulmonary, eye, ENT system symptoms on review. MENTAL STATUS EXAM: Oriented to himself and situation. Speech is coherent, has some latency. Abstraction fair, computation impaired, language function intact, attention span short. Mood and affect remain somewhat anxious, dysphoric at times. LABORATORY DATA: Reviewed. IMPRESSION: Unchanged from initial note. PLAN: Continue Prozac, Seroquel, Depakote at current dosage, trazodone. If mood lability resurfaces, we may increase the Depakote and follow labs. MAN Gertrude RADER MD DR: NIRAJ/yani JOB#: [id number] / [id number]
[2018-02-22 05:35] VITALS: BP 117/66
[2018-02-22 07:05] LABS: BASO # 0.1 x10^3/uL (0.0-0.2); BASO % 1 % (0-3); EOS # 0.2 x10^3/uL (0.0-0.7); EOS % 2 % (0-3); HEMATOCRIT 36.6 % (39.0-53.0); HEMOGLOBIN 11.8 g/dL (13.0-17.5); LYMPH # 1.8 x10^3/uL (1.0-4.8); LYMPH % 18 % (24-48); MEAN CORPUSCULAR HEMOGLOBIN 26 pg (25-35); MEAN CORPUSCULAR HGB CONC 32 g/dL (31-37); MEAN CORPUSCULAR VOLUME 80 fL (79-100); MONO # 0.8 x10^3/uL (0.0-1.1); MONO % 8 % (0-9); NEUT # 7.1 x10^3uL (1.8-7.7); NEUT % 71 % (31-73); PLATELET COUNT 245 x10^3/uL (140-400); RED CELL DISTRIBUTION WIDTH 14.8 % (11.5-14.5); WHITE BLOOD COUNT 10.1 x10^3/uL (4.0-11.0)
[2018-02-22 07:21] LABS: ALBUMIN/GLOBULIN RATIO 0.8 (1.0-1.7); ALK PHOS 71 U/L (46-116); ALT (SGPT) 17 U/L (16-63); ANION GAP 3 (6-14); AST (SGOT) 13 U/L (15-37); BLOOD UREA NITROGEN 15 mg/dL (8-26); BUN/CREATININE RATIO 12 (6-20); CALCIUM 9.2 mg/dL (8.5-10.1); CARBON DIOXIDE 33 mmol/L (21-32); CHLORIDE 103 mmol/L (98-107); CREATININE 1.3 mg/dL (0.7-1.3); GFR 54.7; GLUCOSE 162 mg/dL (70-99); POTASSIUM 4.5 mmol/L (3.5-5.1); SODIUM 139 mmol/L (136-145); TOTAL BILIRUBIN 0.3 mg/dL (0.2-1.0)
[2018-02-22 07:22] LABS: VAL ACID 13 mcg/mL (50-100)
[2018-02-22] MEDS: CLOPIDOGREL BISULFATE 75 MG TABLET PO SCH (08:13)
[2018-02-22] MEDS: MAGNESIUM OXIDE 400 MG TABLET PO SCH ×3 (08:13→19:51)
[2018-02-22] MEDS: LEVOTHYROXINE 100 MCG TABLET PO SCH (08:13)
[2018-02-22] MEDS: DIVALPROEX 125 MG CAP.SPRINK PO SCH ×2 (08:13→17:26)
[2018-02-22] MEDS: LACTOBACILLUS RHAMNOSUS GG 1 CAPSULE. PO SCH ×3 (08:13→19:53)
[2018-02-22] MEDS: AMOXICILLIN 250 MG CAPSULE PO SCH ×3 (08:14→19:51)
[2018-02-22] MEDS: FLUoxetine HCL 20 MG CAPSULE PO SCH (08:14)
[2018-02-22] MEDS: PANTOPRAZOLE 40 MG TABLET. PO SCH (08:14)
[2018-02-22] MEDS: POTASSIUM CHLORIDE 20 MEQ TABLET.ER. PO SCH (08:14)
[2018-02-22] MEDS: SPIRONOLACTONE 25 MG TABLET PO SCH (08:14)
[2018-02-22] MEDS: dilTIAZem HCL 30 MG TABLET PO SCH (08:15)
[2018-02-22] MEDS: INSULIN LISPRO 300 UNITS/3 ML INSULN.PEN. SQ SCH ×3 (08:18→17:00)
[2018-02-22] MEDS: ESTRADIOL 1 MG TABLET PO SCH (08:22)
[2018-02-22] MEDS: MUPIROCIN 2% TOPICAL OINTMENT 22GM TUBE. TP SCH ×2 (08:22→19:51)
[2018-02-22] MEDS: oxyCODONE IR 5 MG TABLET PO PRN (11:28)
[2018-02-22 16:18] VITALS: BP 150/70
[2018-02-22] MEDS: traZODone 50 MG TABLET. PO SCH (19:51)
[2018-02-22] MEDS: QUEtiapine 50 MG TABLET. PO SCH (19:52)
[2018-02-22] MEDS: PRAZOSIN 1 MG CAPSULE. PO SCH (19:52)
[2018-02-22] MEDS: MELATONIN 3 MG TABLET PO SCH (19:53)
[2018-02-22] MEDS: INSULIN GLARGINE 300 UNITS/3 ML INSULN.PEN. SQ SCH (19:54)
--- NOTE | 2018-02-22 20:44 | PDOC ---
Exam Note: Giovanny Note: Please also refer to the separate dictated note~for this date of service dictated separately.~Patient seen individually. Discussed the patient with Nursing staff reviewed the chart.~Reviewed interim history and current functioning. Reviewed vital signs,~Labs/ Radiology~and current medications noted below. Continue current treatment with the changes noted in the dictated addendum note Assessment: Vital Signs: Vital Signs Date Time Temp Pulse Resp B/P (MAP) Pulse Ox O2 Delivery O2 Flow Rate FiO2 02/22/18 19:52 64 150/70 02/22/18 16:18 97.4 18 94 02/22/18 12:43 Room Air I&O Intake and Output 02/22/18 07:00 Intake Total 1200 ml Balance 1200 ml Intake Oral 1200 ml Labs: Laboratory Tests Test 02/22/18 06:56 02/22/18 07:33 02/22/18 12:00 02/22/18 16:49 White Blood Count 10.1 x10^3/uL (4.0-11.0) Red Blood Count 4.60 x10^6/uL (4.30-5.70) Hemoglobin 11.8 g/dL (13.0-17.5) L Hematocrit 36.6 % (39.0-53.0) L Mean Corpuscular Volume 80 fL (79-100) Mean Corpuscular Hemoglobin 26 pg (25-35) Mean Corpuscular Hemoglobin Concent 32 g/dL (31-37) Red Cell Distribution Width 14.8 % (11.5-14.5) H Platelet Count 245 x10^3/uL (140-400) Neutrophils (%) (Auto) 71 % (31-73) Lymphocytes (%) (Auto) 18 % (24-48) L Monocytes (%) (Auto) 8 % (0-9) Eosinophils (%) (Auto) 2 % (0-3) Basophils (%) (Auto) 1 % (0-3) Neutrophils # (Auto) 7.1 x10^3uL (1.8-7.7) Lymphocytes # (Auto) 1.8 x10^3/uL (1.0-4.8) Monocytes # (Auto) 0.8 x10^3/uL (0.0-1.1) Eosinophils # (Auto) 0.2 x10^3/uL (0.0-0.7) Basophils # (Auto) 0.1 x10^3/uL (0.0-0.2) Sodium Level 139 mmol/L (136-145) Potassium Level 4.5 mmol/L (3.5-5.1) Chloride Level 103 mmol/L (98-107) Carbon Dioxide Level 33 mmol/L (21-32) H Anion Gap 3 (6-14) L Blood Urea Nitrogen 15 mg/dL (8-26) Creatinine 1.3 mg/dL (0.7-1.3) Estimated GFR (Cockcroft-Gault) 54.7 BUN/Creatinine Ratio 12 (6-20) Glucose Level 162 mg/dL (70-99) H Calcium Level 9.2 mg/dL (8.5-10.1) Total Bilirubin 0.3 mg/dL (0.2-1.0) Aspartate Amino Transferase (AST) 13 U/L (15-37) L Alanine Aminotransferase (ALT) 17 U/L (16-63) Alkaline Phosphatase 71 U/L (46-116) Total Protein 7.0 g/dL (6.4-8.2) Albumin 3.0 g/dL (3.4-5.0) L Albumin/Globulin Ratio 0.8 (1.0-1.7) L Valproic Acid Level 13 mcg/mL (50-100) L Valproic Acid Last Dose Date 02/21/2018 Valproic Acid Last Dose Time 1700 Glucose (Fingerstick) 175 mg/dL (70-99) H 173 mg/dL (70-99) H 123 mg/dL (70-99) H Test 02/22/18 19:14 Glucose (Fingerstick) 199 mg/dL (70-99) H Current Medications: Meds: Current Medications Magnesium Chloride (Mag Delay) 64 mg 1X ONCE PO Last administered on at 20:39; Start 02/13/18 at 20:00; Stop 02/13/18 at 20:01; Status DC Acetaminophen (Tylenol) 650 mg PRN Q6HRS PRN PO PAIN / TEMP; Start 02/13/18 at 21:30; Stop 02/13/18 at 22:41; Status DC Multi-Ingredient Ointment (Analgesic [place]) 1 valerie PRN QID PRN TP MUSCLE PAIN; Start 02/13/18 at 21:30 Al Hydroxide/Mg Hydroxide (Mylanta Plus Xs) 15 ml PRN AFTMEALHC PRN PO DYSPEPSIA; Start 02/13/18 at 21:30 Magnesium Hydroxide (Milk Of Magnesia) 2,400 mg PRN QHS PRN PO CONSTIPATION; Start 02/13/18 at 21:30 Nicotine (Nicoderm Cq 14mg) 1 patch DAILY TD Last administered on 02/15/18at 08: 45; Start 02/14/18 at 09:00; Stop 02/15/18 at 15:45; Status DC Estradiol (Estrace) 1 mg DAILY PO Last administered on 02/22/18 08:22; Start 02/14/18 at 09:00 Fluoxetine HCl (PROzac) 60 mg DAILY PO Last administered on 02/22/18at 08:14; Start 02/14/18 at 09:00 Non-Formulary Medication (Fluoxetine Hcl ) 40 mg DAILY PO ; Start 02/14/18 at 09 :00; Stop 02/14/18 at 09:00; Status DC Melatonin 6 mg QHS PO Last administered on 02/22/18at 19:53; Start 02/13/18 at 23:00 Quetiapine Fumarate (SEROquel) 50 mg QHS PO Last administered on 02/14/18at 20: 29; Start 02/13/18 at 23:00; Stop 02/15/18 at 17:11; Status DC Trazodone HCl (Desyrel) 50 mg QHS PO Last administered on 02/22/18at 19:51; Start 02/13/18 at 23:00 Acetaminophen (Tylenol) 650 mg PRN Q6HRS PRN PO PAIN / TEMP Last administered on 02/16/18at 20:08; Start 02/13/18 at 22:30 Clopidogrel Bisulfate (Plavix) 75 mg DAILY PO Last administered on 02/22/18at 08 :13; Start 02/14/18 at 09:00 Insulin Glargine (Lantus) 32 units QHS SQ Last administered on 02/22/18at 19:54 ; Start 02/13/18 at 23:00 Levothyroxine Sodium (Synthroid) 100 mcg DAILYAC PO Last administered on at 08:13; Start 02/14/18 at 07:30 Potassium Chloride (Klor-Con) 20 meq DAILY PO Last administered on 02/22/18 08 :14; Start 02/14/18 at 09:00 Diltiazem HCl (Cardizem) 45 mg DAILY PO Last administered on 02/22/18 08:15; Start 02/14/18 at 09:00 Pantoprazole Sodium (Protonix) 40 mg DAILYAC PO Last administered on 02/22/18 08:14; Start 02/14/18 at 07:30 Oxycodone HCl (Roxicodone) 5 mg PRN Q8HRS PRN PO PAIN Last administered on 02/22 11:28; Start 02/13/18 at 22:30 Prazosin HCl (Minipress) 2 mg QHS PO Last administered on 02/22/18 19:52; Start 02/13/18 at 23:00 Spironolactone (Aldactone) 25 mg DAILY PO Last administered on 02/22/18 08:14 ; Start 02/14/18 at 09:00 Insulin Human Lispro (HumaLOG) 0-7 UNITS TIDWMEALS SQ Last administered on 02/22 08:18; Start 02/14/18 at 08:00 Dextrose 12.5 gm PRN Q15MIN PRN IV SEE COMMENTS; Start 02/13/18 at 22:30 Magnesium Oxide (Magnesium Oxide) 400 mg TID PO Last administered on 02/22/18at 19:51; Start 02/14/18 at 14:00 Influenza Virus Vaccine (Afluria Trivalent [id number] Syringe) 0.5 ml ONCE ONCE VAX IM ; Start 02/15/18 at 13:00; Stop 02/15/18 at 13:01; Status DC Pneumococcal Polyvalent Vaccine (Pneumovax 23) 0.5 ml ONCE ONCE VAX IM Last administered on 02/15/18at 13:59; Start 02/15/18 at 13:00; Stop 02/15/18 at 13:01 ; Status DC Quetiapine Fumarate (SEROquel) 75 mg QHS PO Last administered on 02/20/18at 20: 29; Start 02/15/18 at 21:00; Stop 02/21/18 at 16:57; Status DC Amoxicillin (Amoxil) 500 mg [id number] PO Last administered on 02/22/18 19:51; Start 02/17/18 at 21:00; Stop 02/24/18 at 09:00 Lactobacillus Rhamnosus (Culturelle) 1 cap TID PO Last administered on 19:53; Start 02/17/18 at 21:00; Stop 02/28/18 at 21:00 Loperamide HCl (Imodium) 2 mg PRN Q1HR PRN PO DIARRHEA; Start 02/17/18 at 17:30 Loperamide HCl (Imodium) 4 mg PRN DAILY PRN PO DIARRHEA Last administered on 14:33; Start 02/17/18 at 17:30 Divalproex Sodium (Depakote Sprinkles) 125 mg BIDWMEALS PO Last administered on 02/22/18 08:13; Start 02/19/18 at 08:00; Stop 02/22/18 at 16:37; Status DC Mupirocin (Bactroban) 1 valerie BID TP Last administered on 02/22/18 19:51; Start 02/21/18 at 21:00 Quetiapine Fumarate (SEROquel) 100 mg QHS PO Last administered on 02/22/18 19: 52; Start 02/21/18 at 21:00 Divalproex Sodium (Depakote Sprinkles) 250 mg BIDWMEALS PO Last administered on 02/22/18 17:26; Start 02/22/18 at 17:00 Active Scripts Active Reported Tylenol (Acetaminophen) 325 Mg Tablet 650 Mg PO PRN Q6HRS PRN Trazodone Hcl 50 Mg Tablet 50 Mg PO QHS Seroquel (Quetiapine Fumarate) 50 Mg Tablet 50 Mg PO QHS Prazosin Hcl 2 Mg Capsule 2 Mg PO QHS Klor-Con M20 (Potassium Chloride) 20 Meq Tab.er.prt 20 Meq PO DAILY Oxycodone Hcl 5 Mg Capsule 5 Mg PO PRN Q8HRS PRN Omeprazole 20 Mg Tablet.dr 20 Mg PO DAILY Melatonin 3 Mg Tablet 6 Mg PO QHS Levothyroxine Sodium 100 Mcg Tablet 100 Mcg PO DAILYAC Lantus Solostar (Insulin Glargine,Hum.rec.anlog) 100 Unit/1 Ml Insuln.pen 32 Unit SQ QHS Fluoxetine Hcl 40 Mg Capsule 40 Mg PO DAILY Fluoxetine Hcl 20 Mg Tablet 20 Mg PO DAILY Estradiol 1 Mg Tablet 1 Mg PO DAILY Diltiazem Hcl Tablet (Diltiazem Hcl) 90 Mg Tablet 45 Mg PO DAILY Clopidogrel (Clopidogrel Bisulfate) 75 Mg Tablet 75 Mg PO DAILY Aldactone (Spironolactone) 25 Mg Tablet 25 Mg PO DAILY I have reviewed the current psychotropics carefully including drug interactions. Risk benefit ratio favors no change other than as noted in my dictated progress note. 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
--- NOTE | 2018-02-22 23:11 | PN ---
DATE: 02/21/2018 This is a late entry for 02/21/2018 covers elements not covered in my initial note. SUBJECTIVE: I met with the patient in the evening. The patient slept 6-3/4 hours previous night. He has been irritable at times in the day room, but redirects. REVIEW OF SYSTEMS: Ambulation impaired. No CV, , pulmonary, eye, ENT system symptoms on review. Reliability fair. He has had no more diarrhea. MENTAL STATUS EXAM: The patient is oriented to himself and situation. Speech is coherent, has some latency. Abstraction fair, computation impaired, language function intact, attention span short. Mood and affect less labile and irritable. LABORATORY DATA: Reviewed. IMPRESSION: Bipolar 1 disorder, mixed with psychotic features; anxiety disorder, unspecified; cognitive disorder, unspecified. PLAN: No change from initial note, but we will increase the Seroquel from 75 mg at bedtime to 100 mg at bedtime. Continue Prozac, melatonin, Depakote, trazodone. Follow labs on the Depakote and adjust to reach therapeutic level. MAN Gertrude RADER MD DR: NIRAJ/yani JOB#: [id number] / [id number]
[2018-02-23 05:20] VITALS: BP 150/62
[2018-02-23] MEDS: AMOXICILLIN 250 MG CAPSULE PO SCH ×3 (07:44→19:50)
[2018-02-23] MEDS: CLOPIDOGREL BISULFATE 75 MG TABLET PO SCH (07:44)
[2018-02-23] MEDS: LEVOTHYROXINE 100 MCG TABLET PO SCH (07:44)
[2018-02-23] MEDS: dilTIAZem HCL 30 MG TABLET PO SCH (07:45)
[2018-02-23] MEDS: FLUoxetine HCL 20 MG CAPSULE PO SCH (07:45)
[2018-02-23] MEDS: DIVALPROEX 125 MG CAP.SPRINK PO SCH ×2 (07:45→17:36)
[2018-02-23] MEDS: PANTOPRAZOLE 40 MG TABLET. PO SCH (07:46)
[2018-02-23] MEDS: SPIRONOLACTONE 25 MG TABLET PO SCH (07:46)
[2018-02-23] MEDS: LACTOBACILLUS RHAMNOSUS GG 1 CAPSULE. PO SCH ×3 (07:46→19:50)
[2018-02-23] MEDS: MAGNESIUM OXIDE 400 MG TABLET PO SCH ×3 (07:46→19:54)
[2018-02-23] MEDS: MUPIROCIN 2% TOPICAL OINTMENT 22GM TUBE. TP SCH ×2 (07:47→19:54)
[2018-02-23] MEDS: POTASSIUM CHLORIDE 20 MEQ TABLET.ER. PO SCH (07:47)
[2018-02-23] MEDS: ESTRADIOL 1 MG TABLET PO SCH (07:48)
[2018-02-23] MEDS: INSULIN LISPRO 300 UNITS/3 ML INSULN.PEN. SQ SCH ×4 (07:49→17:37)
[2018-02-23] MEDS: oxyCODONE IR 5 MG TABLET PO PRN ×2 (09:25→20:01)
[2018-02-23] MEDS: LOPERAMIDE 2 MG CAPSULE PO PRN (09:32)
[2018-02-23] MEDS: CYCLOBENZAPRINE 10 MG TABLET. PO PRN (14:13)
[2018-02-23 15:50] VITALS: BP 100/56
[2018-02-23] MEDS: MELATONIN 3 MG TABLET PO SCH (19:49)
[2018-02-23] MEDS: PRAZOSIN 1 MG CAPSULE. PO SCH (19:50)
[2018-02-23] MEDS: traZODone 50 MG TABLET. PO SCH (19:50)
[2018-02-23] MEDS: QUEtiapine 50 MG TABLET. PO SCH (19:51)
[2018-02-23] MEDS: INSULIN GLARGINE 300 UNITS/3 ML INSULN.PEN. SQ SCH (19:52)
--- NOTE | 2018-02-23 20:26 | PDOC ---
Exam Note: Giovanny Note: Please also refer to the separate dictated note~for this date of service dictated separately.~Patient seen individually. Discussed the patient with Nursing staff reviewed the chart.~Reviewed interim history and current functioning. Reviewed vital signs,~Labs/ Radiology~and current medications noted below. Continue current treatment with the changes noted in the dictated addendum note Assessment: Vital Signs: Vital Signs Date Time Temp Pulse Resp B/P (MAP) Pulse Ox O2 Delivery O2 Flow Rate FiO2 02/23/18 20:01 98 Room Air 02/23/18 19:50 69 100/56 02/23/18 15:50 97.4 18 I&O Intake and Output 02/23/18 07:00 Intake Total 960 ml Balance 960 ml Intake Oral 960 ml # Bowel Movements 3 Labs: Laboratory Tests Test 02/23/18 07:14 02/23/18 12:24 02/23/18 16:57 02/23/18 19:32 Glucose (Fingerstick) 151 mg/dL (70-99) H 219 mg/dL (70-99) H 205 mg/dL (70-99) H 204 mg/dL (70-99) H Current Medications: Meds: Current Medications Magnesium Chloride (Mag Delay) 64 mg 1X ONCE PO Last administered on at 20:39; Start 02/13/18 at 20:00; Stop 02/13/18 at 20:01; Status DC Acetaminophen (Tylenol) 650 mg PRN Q6HRS PRN PO PAIN / TEMP; Start 02/13/18 at 21:30; Stop 02/13/18 at 22:41; Status DC Multi-Ingredient Ointment (Analgesic [place]) 1 valerie PRN QID PRN TP MUSCLE PAIN; Start 02/13/18 at 21:30 Al Hydroxide/Mg Hydroxide (Mylanta Plus Xs) 15 ml PRN AFTMEALHC PRN PO DYSPEPSIA; Start 02/13/18 at 21:30 Magnesium Hydroxide (Milk Of Magnesia) 2,400 mg PRN QHS PRN PO CONSTIPATION; Start 02/13/18 at 21:30 Nicotine (Nicoderm Cq 14mg) 1 patch DAILY TD Last administered on 02/15/18at 08: 45; Start 02/14/18 at 09:00; Stop 02/15/18 at 15:45; Status DC Estradiol (Estrace) 1 mg DAILY PO Last administered on 02/23/18 07:48; Start 02/14/18 at 09:00 Fluoxetine HCl (PROzac) 60 mg DAILY PO Last administered on 02/23/18 07:45; Start 02/14/18 at 09:00 Non-Formulary Medication (Fluoxetine Hcl ) 40 mg DAILY PO ; Start 02/14/18 at 09 :00; Stop 02/14/18 at 09:00; Status DC Melatonin 6 mg QHS PO Last administered on 02/23/18 19:49; Start 02/13/18 at 23:00 Quetiapine Fumarate (SEROquel) 50 mg QHS PO Last administered on 02/14/18 20: 29; Start 02/13/18 at 23:00; Stop 02/15/18 at 17:11; Status DC Trazodone HCl (Desyrel) 50 mg QHS PO Last administered on 02/23/18 19:50; Start 02/13/18 at 23:00 Acetaminophen (Tylenol) 650 mg PRN Q6HRS PRN PO PAIN / TEMP Last administered on 02/16/18 20:08; Start 02/13/18 at 22:30 Clopidogrel Bisulfate (Plavix) 75 mg DAILY PO Last administered on 02/23/18 07 :44; Start 02/14/18 at 09:00 Insulin Glargine (Lantus) 32 units QHS SQ Last administered on 02/23/18 19:52 ; Start 02/13/18 at 23:00 Levothyroxine Sodium (Synthroid) 100 mcg DAILYAC PO Last administered on 07:44; Start 02/14/18 at 07:30; Stop 02/23/18 at 07:54; Status DC Potassium Chloride (Klor-Con) 20 meq DAILY PO Last administered on 02/23/18 07 :47; Start 02/14/18 at 09:00 Diltiazem HCl (Cardizem) 45 mg DAILY PO Last administered on 02/23/18 07:45; Start 02/14/18 at 09:00 Pantoprazole Sodium (Protonix) 40 mg DAILYAC PO Last administered on 02/23/18at 07:46; Start 02/14/18 at 07:30 Oxycodone HCl (Roxicodone) 5 mg PRN Q8HRS PRN PO PAIN Last administered on 02/23 20:01; Start 02/13/18 at 22:30 Prazosin HCl (Minipress) 2 mg QHS PO Last administered on 02/22/18at 19:52; Start 02/13/18 at 23:00 Spironolactone (Aldactone) 25 mg DAILY PO Last administered on 02/23/18at 07:46 ; Start 02/14/18 at 09:00 Insulin Human Lispro (HumaLOG) 0-7 UNITS TIDWMEALS SQ Last administered on 02/23at 17:37; Start 02/14/18 at 08:00 Dextrose 12.5 gm PRN Q15MIN PRN IV SEE COMMENTS; Start 02/13/18 at 22:30 Magnesium Oxide (Magnesium Oxide) 400 mg TID PO Last administered on 02/23/18at 19:54; Start 02/14/18 at 14:00 Influenza Virus Vaccine (Afluria Trivalent 0314-0299 Syringe) 0.5 ml ONCE ONCE VAX IM ; Start 02/15/18 at 13:00; Stop 02/15/18 at 13:01; Status DC Pneumococcal Polyvalent Vaccine (Pneumovax 23) 0.5 ml ONCE ONCE VAX IM Last administered on 02/15/18at 13:59; Start 02/15/18 at 13:00; Stop 02/15/18 at 13:01 ; Status DC Quetiapine Fumarate (SEROquel) 75 mg QHS PO Last administered on 02/20/18at 20: 29; Start 02/15/18 at 21:00; Stop 02/21/18 at 16:57; Status DC Amoxicillin (Amoxil) 500 mg [id number] PO Last administered on 02/23/18at 19:50; Start 02/17/18 at 21:00; Stop 02/24/18 at 09:00 Lactobacillus Rhamnosus (Culturelle) 1 cap TID PO Last administered on at 19:50; Start 02/17/18 at 21:00; Stop 02/28/18 at 21:00 Loperamide HCl (Imodium) 2 mg PRN Q1HR PRN PO DIARRHEA; Start 02/17/18 at 17:30 Loperamide HCl (Imodium) 4 mg PRN DAILY PRN PO DIARRHEA Last administered on 09:32; Start 02/17/18 at 17:30 Divalproex Sodium (Depakote Sprinkles) 125 mg BIDWMEALS PO Last administered on 02/22/18at 08:13; Start 02/19/18 at 08:00; Stop 02/22/18 at 16:37; Status DC Mupirocin (Bactroban) 1 valerie BID TP Last administered on 02/23/18at 19:54; Start 02/21/18 at 21:00 Quetiapine Fumarate (SEROquel) 100 mg QHS PO Last administered on 02/23/18at 19: 51; Start 02/21/18 at 21:00 Divalproex Sodium (Depakote Sprinkles) 250 mg BIDWMEALS PO Last administered on 02/23/18at 17:36; Start 02/22/18 at 17:00 Levothyroxine Sodium (Synthroid) 100 mcg DAILY06 PO ; Start 02/24/18 at 06:00 Cyclobenzaprine HCl (Flexeril) 5 mg PRN TID PRN PO MUSCLE SPASMS Last administered on 02/23/18at 14:13; Start 02/23/18 at 09:45; Stop 02/28/18 at 09:44 Active Scripts Active Reported Tylenol (Acetaminophen) 325 Mg Tablet 650 Mg PO PRN Q6HRS PRN Trazodone Hcl 50 Mg Tablet 50 Mg PO QHS Seroquel (Quetiapine Fumarate) 50 Mg Tablet 50 Mg PO QHS Prazosin Hcl 2 Mg Capsule 2 Mg PO QHS Klor-Con M20 (Potassium Chloride) 20 Meq Tab.er.prt 20 Meq PO DAILY Oxycodone Hcl 5 Mg Capsule 5 Mg PO PRN Q8HRS PRN Omeprazole 20 Mg Tablet.dr 20 Mg PO DAILY Melatonin 3 Mg Tablet 6 Mg PO QHS Levothyroxine Sodium 100 Mcg Tablet 100 Mcg PO DAILYAC Lantus Solostar (Insulin Glargine,Hum.rec.anlog) 100 Unit/1 Ml Insuln.pen 32 Unit SQ QHS Fluoxetine Hcl 40 Mg Capsule 40 Mg PO DAILY Fluoxetine Hcl 20 Mg Tablet 20 Mg PO DAILY Estradiol 1 Mg Tablet 1 Mg PO DAILY Diltiazem Hcl Tablet (Diltiazem Hcl) 90 Mg Tablet 45 Mg PO DAILY Clopidogrel (Clopidogrel Bisulfate) 75 Mg Tablet 75 Mg PO DAILY Aldactone (Spironolactone) 25 Mg Tablet 25 Mg PO DAILY I have reviewed the current psychotropics carefully including drug interactions. Risk benefit ratio favors no change other than as noted in my dictated progress note. 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
[2018-02-24 05:48] VITALS: BP 140/66
[2018-02-24] MEDS: LEVOTHYROXINE 100 MCG TABLET PO SCH (06:00)
[2018-02-24] MEDS: DIVALPROEX 125 MG CAP.SPRINK PO SCH ×2 (07:52→16:52)
[2018-02-24] MEDS: MAGNESIUM OXIDE 400 MG TABLET PO SCH ×3 (07:54→19:10)
[2018-02-24] MEDS: SPIRONOLACTONE 25 MG TABLET PO SCH (07:54)
[2018-02-24] MEDS: LACTOBACILLUS RHAMNOSUS GG 1 CAPSULE. PO SCH ×3 (07:54→19:10)
[2018-02-24] MEDS: dilTIAZem HCL 30 MG TABLET PO SCH (07:54)
[2018-02-24] MEDS: FLUoxetine HCL 20 MG CAPSULE PO SCH (07:54)
[2018-02-24] MEDS: CLOPIDOGREL BISULFATE 75 MG TABLET PO SCH (07:54)
[2018-02-24] MEDS: PANTOPRAZOLE 40 MG TABLET. PO SCH (07:54)
[2018-02-24] MEDS: AMOXICILLIN 250 MG CAPSULE PO SCH (07:54)
[2018-02-24] MEDS: INSULIN LISPRO 300 UNITS/3 ML INSULN.PEN. SQ SCH ×3 (07:55→16:53)
[2018-02-24] MEDS: POTASSIUM CHLORIDE 20 MEQ TABLET.ER. PO SCH (07:55)
[2018-02-24] MEDS: MUPIROCIN 2% TOPICAL OINTMENT 22GM TUBE. TP SCH ×2 (07:56→19:12)
[2018-02-24] MEDS: ESTRADIOL 1 MG TABLET PO SCH (07:58)
[2018-02-24] MEDS: oxyCODONE IR 5 MG TABLET PO PRN ×2 (09:07→17:27)
[2018-02-24] MEDS: CYCLOBENZAPRINE 10 MG TABLET. PO PRN (12:21)
[2018-02-24 16:02] VITALS: BP 151/67
[2018-02-24] MEDS: PRAZOSIN 1 MG CAPSULE. PO SCH (19:09)
[2018-02-24] MEDS: MELATONIN 3 MG TABLET PO SCH (19:09)
[2018-02-24] MEDS: QUEtiapine 50 MG TABLET. PO SCH (19:10)
[2018-02-24] MEDS: traZODone 50 MG TABLET. PO SCH (19:10)
[2018-02-24] MEDS: INSULIN GLARGINE 300 UNITS/3 ML INSULN.PEN. SQ SCH (20:11)
--- NOTE | 2018-02-24 20:44 | PDOC ---
Exam Note: Giovanny Note: Please also refer to the separate dictated note~for this date of service dictated separately.~Patient seen individually. Discussed the patient with Nursing staff reviewed the chart.~Reviewed interim history and current functioning. Reviewed vital signs,~Labs/ Radiology~and current medications noted below. Continue current treatment with the changes noted in the dictated addendum note Assessment: Vital Signs: Vital Signs Date Time Temp Pulse Resp B/P (MAP) Pulse Ox O2 Delivery O2 Flow Rate FiO2 02/24/18 19:09 65 151/67 02/24/18 19:01 18 Room Air 02/24/18 17:27 96 02/24/18 16:02 97.7 I&O Intake and Output 02/24/18 07:00 Intake Total 1320 ml Balance 1320 ml Intake Oral 1320 ml # Bowel Movements 1 Labs: Laboratory Tests Test 02/24/18 07:13 02/24/18 11:21 02/24/18 16:32 Glucose (Fingerstick) 118 mg/dL (70-99) H 173 mg/dL (70-99) H 184 mg/dL (70-99) H Current Medications: Meds: Current Medications Magnesium Chloride (Mag Delay) 64 mg 1X ONCE PO Last administered on at 20:39; Start 02/13/18 at 20:00; Stop 02/13/18 at 20:01; Status DC Acetaminophen (Tylenol) 650 mg PRN Q6HRS PRN PO PAIN / TEMP; Start 02/13/18 at 21:30; Stop 02/13/18 at 22:41; Status DC Multi-Ingredient Ointment (Analgesic [place]) 1 valerie PRN QID PRN TP MUSCLE PAIN; Start 02/13/18 at 21:30 Al Hydroxide/Mg Hydroxide (Mylanta Plus Xs) 15 ml PRN AFTMEALHC PRN PO DYSPEPSIA; Start 02/13/18 at 21:30 Magnesium Hydroxide (Milk Of Magnesia) 2,400 mg PRN QHS PRN PO CONSTIPATION; Start 02/13/18 at 21:30 Nicotine (Nicoderm Cq 14mg) 1 patch DAILY TD Last administered on 02/15/18at 08: 45; Start 02/14/18 at 09:00; Stop 02/15/18 at 15:45; Status DC Estradiol (Estrace) 1 mg DAILY PO Last administered on 02/24/18 07:58; Start 02/14/18 at 09:00 Fluoxetine HCl (PROzac) 60 mg DAILY PO Last administered on 02/24/18 07:54; Start 02/14/18 at 09:00 Non-Formulary Medication (Fluoxetine Hcl ) 40 mg DAILY PO ; Start 02/14/18 at 09 :00; Stop 02/14/18 at 09:00; Status DC Melatonin 6 mg QHS PO Last administered on 02/24/18 19:09; Start 02/13/18 at 23:00 Quetiapine Fumarate (SEROquel) 50 mg QHS PO Last administered on 02/14/18 20: 29; Start 02/13/18 at 23:00; Stop 02/15/18 at 17:11; Status DC Trazodone HCl (Desyrel) 50 mg QHS PO Last administered on 02/24/18 19:10; Start 02/13/18 at 23:00 Acetaminophen (Tylenol) 650 mg PRN Q6HRS PRN PO PAIN / TEMP Last administered on 02/16/18at 20:08; Start 02/13/18 at 22:30 Clopidogrel Bisulfate (Plavix) 75 mg DAILY PO Last administered on 02/24/18 07 :54; Start 02/14/18 at 09:00 Insulin Glargine (Lantus) 32 units QHS SQ Last administered on 02/24/18 20:11 ; Start 02/13/18 at 23:00 Levothyroxine Sodium (Synthroid) 100 mcg DAILYAC PO Last administered on at 07:44; Start 02/14/18 at 07:30; Stop 02/23/18 at 07:54; Status DC Potassium Chloride (Klor-Con) 20 meq DAILY PO Last administered on 02/24/18 07 :55; Start 02/14/18 at 09:00 Diltiazem HCl (Cardizem) 45 mg DAILY PO Last administered on 02/24/18 07:54; Start 02/14/18 at 09:00 Pantoprazole Sodium (Protonix) 40 mg DAILYAC PO Last administered on 02/24/18 07:54; Start 02/14/18 at 07:30 Oxycodone HCl (Roxicodone) 5 mg PRN Q8HRS PRN PO PAIN Last administered on 02/24 17:27; Start 02/13/18 at 22:30 Prazosin HCl (Minipress) 2 mg QHS PO Last administered on 02/24/18at 19:09; Start 02/13/18 at 23:00 Spironolactone (Aldactone) 25 mg DAILY PO Last administered on 02/24/18at 07:54 ; Start 02/14/18 at 09:00 Insulin Human Lispro (HumaLOG) 0-7 UNITS TIDWMEALS SQ Last administered on 02/24at 16:53; Start 02/14/18 at 08:00 Dextrose 12.5 gm PRN Q15MIN PRN IV SEE COMMENTS; Start 02/13/18 at 22:30 Magnesium Oxide (Magnesium Oxide) 400 mg TID PO Last administered on 02/24/18at 19:10; Start 02/14/18 at 14:00 Influenza Virus Vaccine (Afluria Trivalent [id number] Syringe) 0.5 ml ONCE ONCE VAX IM ; Start 02/15/18 at 13:00; Stop 02/15/18 at 13:01; Status DC Pneumococcal Polyvalent Vaccine (Pneumovax 23) 0.5 ml ONCE ONCE VAX IM Last administered on 02/15/18at 13:59; Start 02/15/18 at 13:00; Stop 02/15/18 at 13:01 ; Status DC Quetiapine Fumarate (SEROquel) 75 mg QHS PO Last administered on 02/20/18at 20: 29; Start 02/15/18 at 21:00; Stop 02/21/18 at 16:57; Status DC Amoxicillin (Amoxil) 500 mg [id number] PO Last administered on 02/24/18at 07:54; Start 02/17/18 at 21:00; Stop 02/24/18 at 09:00; Status DC Lactobacillus Rhamnosus (Culturelle) 1 cap TID PO Last administered on at 19:10; Start 02/17/18 at 21:00; Stop 02/28/18 at 21:00 Loperamide HCl (Imodium) 2 mg PRN Q1HR PRN PO DIARRHEA; Start 02/17/18 at 17:30 Loperamide HCl (Imodium) 4 mg PRN DAILY PRN PO DIARRHEA Last administered on 09:32; Start 02/17/18 at 17:30 Divalproex Sodium (Depakote Sprinkles) 125 mg BIDWMEALS PO Last administered on 02/22/18at 08:13; Start 02/19/18 at 08:00; Stop 02/22/18 at 16:37; Status DC Mupirocin (Bactroban) 1 valerie BID TP Last administered on 02/24/18at 19:12; Start 02/21/18 at 21:00 Quetiapine Fumarate (SEROquel) 100 mg QHS PO Last administered on 02/24/18 19: 10; Start 02/21/18 at 21:00 Divalproex Sodium (Depakote Sprinkles) 250 mg BIDWMEALS PO Last administered on 02/24/18at 16:52; Start 02/22/18 at 17:00 Levothyroxine Sodium (Synthroid) 100 mcg DAILY06 PO Last administered on at 06:00; Start 02/24/18 at 06:00 Cyclobenzaprine HCl (Flexeril) 5 mg PRN TID PRN PO MUSCLE SPASMS Last administered on 02/24/18at 12:21; Start 02/23/18 at 09:45; Stop 02/28/18 at 09:44 Active Scripts Active Reported Tylenol (Acetaminophen) 325 Mg Tablet 650 Mg PO PRN Q6HRS PRN Trazodone Hcl 50 Mg Tablet 50 Mg PO QHS Seroquel (Quetiapine Fumarate) 50 Mg Tablet 50 Mg PO QHS Prazosin Hcl 2 Mg Capsule 2 Mg PO QHS Klor-Con M20 (Potassium Chloride) 20 Meq Tab.er.prt 20 Meq PO DAILY Oxycodone Hcl 5 Mg Capsule 5 Mg PO PRN Q8HRS PRN Omeprazole 20 Mg Tablet.dr 20 Mg PO DAILY Melatonin 3 Mg Tablet 6 Mg PO QHS Levothyroxine Sodium 100 Mcg Tablet 100 Mcg PO DAILYAC Lantus Solostar (Insulin Glargine,Hum.rec.anlog) 100 Unit/1 Ml Insuln.pen 32 Unit SQ QHS Fluoxetine Hcl 40 Mg Capsule 40 Mg PO DAILY Fluoxetine Hcl 20 Mg Tablet 20 Mg PO DAILY Estradiol 1 Mg Tablet 1 Mg PO DAILY Diltiazem Hcl Tablet (Diltiazem Hcl) 90 Mg Tablet 45 Mg PO DAILY Clopidogrel (Clopidogrel Bisulfate) 75 Mg Tablet 75 Mg PO DAILY Aldactone (Spironolactone) 25 Mg Tablet 25 Mg PO DAILY I have reviewed the current psychotropics carefully including drug interactions. Risk benefit ratio favors no change other than as noted in my dictated progress note. 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
--- NOTE | 2018-02-24 21:23 | PN ---
DATE: 02/22/2018 This is a late entry for 02/22/2018 covers elements not covered in my initial note. SUBJECTIVE: I met with the patient in the evening. The patient slept 8-1/4 hours previous night. He has been withdrawn, spends much time in his room, irritable at times, complains of scrotal pain. We will defer to Dr. Marks. Valproic acid level is 13. LFTs and platelet counts are unremarkable on Depakote 125 mg b.i.d. REVIEW OF SYSTEMS: Ambulation impaired, in wheelchair. No CV, , pulmonary, eye, ENT system symptoms on review. MENTAL STATUS EXAM: Oriented reasonably. Speech is coherent, less pressured. Abstraction fair, computation impaired, language function intact, attention span short. Mood and affect appears improved, but a careful review of his history is reflective of probable bipolar disorder. LABORATORY DATA: Reviewed. IMPRESSION: Bipolar 1 disorder, mixed episode; anxiety disorder, unspecified; history of impulse control disorder, major depressive disorder. PLAN: Increase Depakote from 125 b.i.d. to 250 b.i.d. Check CBC, CMP, valproic acid level in 3 days. Rest unchanged per initial note. EMY RADER MD DR: NIRAJ/yani JOB#: [id number] / [id number]
--- NOTE | 2018-02-24 23:47 | PN ---
DATE: 02/23/2018 This is a late entry for 02/23/2018 covers elements not covered in my initial note. SUBJECTIVE: I met with the patient in the evening of 02/23/2018 and staffed at a treatment team meeting with the entire team in the morning. Reviewed his history, current medications, progress, discharge plans at length. C. diff is negative. He might have lactose intolerances, on a lactose-free diet. Slept 5-1/4 hours. Still somewhat withdrawn, but less irritable. Not aggressive. REVIEW OF SYSTEMS: Ambulation impaired, in wheelchair. No CV, , pulmonary, eye, ENT system symptoms on review. MENTAL STATUS EXAM: Oriented to himself and situation. Speech is coherent, has some latency. Abstraction fair, computation impaired, language function intact. Mood and affect still somewhat withdrawn. LABORATORY DATA: Reviewed. IMPRESSION: Bipolar 1 disorder, depressed, in partial remission, history of major depressive disorder. Rest unchanged from initial note. PLAN: Continue Seroquel, Prozac, melatonin, Depakote and trazodone. Check labs level on Depakote on 02/25/2018 and adjust thereafter. MAN Gertrude RADER MD DR: NIRAJ/yani JOB#: [id number] / [id number]
[2018-02-25 05:50] VITALS: BP 151/68
[2018-02-25 06:42] LABS: BASO % 1 % (0-3); EOS # 0.2 x10^3/uL (0.0-0.7); EOS % 2 % (0-3); HEMATOCRIT 36.7 % (39.0-53.0); HEMOGLOBIN 11.9 g/dL (13.0-17.5); LYMPH % 20 % (24-48); MEAN CORPUSCULAR HEMOGLOBIN 25 pg (25-35); MEAN CORPUSCULAR HGB CONC 32 g/dL (31-37); MEAN CORPUSCULAR VOLUME 79 fL (79-100); MONO # 0.8 x10^3/uL (0.0-1.1); MONO % 7 % (0-9); NEUT # 7.2 x10^3uL (1.8-7.7); NEUT % 70 % (31-73); PLATELET COUNT 239 x10^3/uL (140-400); RED BLOOD COUNT 4.67 x10^6/uL (4.30-5.70); RED CELL DISTRIBUTION WIDTH 14.6 % (11.5-14.5); WHITE BLOOD COUNT 10.2 x10^3/uL (4.0-11.0)
[2018-02-25 06:53] LABS: ALBUMIN/GLOBULIN RATIO 0.8 (1.0-1.7); ALK PHOS 70 U/L (46-116); ALT (SGPT) 16 U/L (16-63); ANION GAP 4 (6-14); AST (SGOT) 10 U/L (15-37); BLOOD UREA NITROGEN 15 mg/dL (8-26); BUN/CREATININE RATIO 11 (6-20); CALCIUM 9.2 mg/dL (8.5-10.1); CARBON DIOXIDE 34 mmol/L (21-32); CHLORIDE 102 mmol/L (98-107); CREATININE 1.4 mg/dL (0.7-1.3); GFR 50.2; GLUCOSE 111 mg/dL (70-99); POTASSIUM 4.3 mmol/L (3.5-5.1); SODIUM 140 mmol/L (136-145); TOTAL BILIRUBIN 0.3 mg/dL (0.2-1.0); TOTAL PROTEIN 6.7 g/dL (6.4-8.2)
[2018-02-25 06:54] LABS: VAL ACID 24 mcg/mL (50-100)
[2018-02-25] MEDS: MAGNESIUM OXIDE 400 MG TABLET PO SCH ×4 (07:45→20:07)
[2018-02-25] MEDS: LACTOBACILLUS RHAMNOSUS GG 1 CAPSULE. PO SCH ×4 (07:45→20:08)
[2018-02-25] MEDS: FLUoxetine HCL 20 MG CAPSULE PO SCH (07:45)
[2018-02-25] MEDS: POTASSIUM CHLORIDE 20 MEQ TABLET.ER. PO SCH ×2 (07:46→09:15)
[2018-02-25] MEDS: DIVALPROEX 125 MG CAP.SPRINK PO SCH ×2 (07:46→17:34)
[2018-02-25] MEDS: INSULIN LISPRO 300 UNITS/3 ML INSULN.PEN. SQ SCH ×3 (07:46→17:00)
[2018-02-25] MEDS: PANTOPRAZOLE 40 MG TABLET. PO SCH (07:46)
[2018-02-25] MEDS: LEVOTHYROXINE 100 MCG TABLET PO SCH ×2 (07:46→09:15)
[2018-02-25] MEDS: SPIRONOLACTONE 25 MG TABLET PO SCH (07:46)
[2018-02-25] MEDS: CLOPIDOGREL BISULFATE 75 MG TABLET PO SCH ×2 (07:47→09:15)
[2018-02-25] MEDS: dilTIAZem HCL 30 MG TABLET PO SCH (07:47)
[2018-02-25] MEDS: ESTRADIOL 1 MG TABLET PO SCH (07:48)
[2018-02-25] MEDS: MUPIROCIN 2% TOPICAL OINTMENT 22GM TUBE. TP SCH ×2 (07:48→20:06)
[2018-02-25] MEDS: CYCLOBENZAPRINE 10 MG TABLET. PO PRN (15:05)
[2018-02-25 15:46] VITALS: BP 106/62
[2018-02-25] MEDS: PRAZOSIN 1 MG CAPSULE. PO SCH (20:08)
[2018-02-25] MEDS: traZODone 50 MG TABLET. PO SCH (20:08)
[2018-02-25] MEDS: MELATONIN 3 MG TABLET PO SCH (20:09)
[2018-02-25] MEDS: QUEtiapine 50 MG TABLET. PO SCH (20:09)
[2018-02-25] MEDS: INSULIN GLARGINE 300 UNITS/3 ML INSULN.PEN. SQ SCH (20:14)
--- NOTE | 2018-02-25 23:01 | PDOC ---
Exam Note: Giovanny Note: Please also refer to the separate dictated note~for this date of service dictated separately.~Patient seen individually. Discussed the patient with Nursing staff reviewed the chart.~Reviewed interim history and current functioning. Reviewed vital signs,~Labs/ Radiology~and current medications noted below. Continue current treatment with the changes noted in the dictated addendum note Assessment: Vital Signs: Vital Signs Date Time Temp Pulse Resp B/P (MAP) Pulse Ox O2 Delivery O2 Flow Rate FiO2 02/25/18 20:08 69 106/62 02/25/18 15:46 97.9 16 90 02/25/18 05:50 Room Air I&O Intake and Output 02/25/18 07:00 Intake Total 960 ml Balance 960 ml Intake Oral 960 ml Labs: Laboratory Tests Test 02/25/18 06:26 02/25/18 07:05 02/25/18 11:42 02/25/18 17:01 White Blood Count 10.2 x10^3/uL (4.0-11.0) Red Blood Count 4.67 x10^6/uL (4.30-5.70) Hemoglobin 11.9 g/dL (13.0-17.5) L Hematocrit 36.7 % (39.0-53.0) L Mean Corpuscular Volume 79 fL (79-100) Mean Corpuscular Hemoglobin 25 pg (25-35) Mean Corpuscular Hemoglobin Concent 32 g/dL (31-37) Red Cell Distribution Width 14.6 % (11.5-14.5) H Platelet Count 239 x10^3/uL (140-400) Neutrophils (%) (Auto) 70 % (31-73) Lymphocytes (%) (Auto) 20 % (24-48) L Monocytes (%) (Auto) 7 % (0-9) Eosinophils (%) (Auto) 2 % (0-3) Basophils (%) (Auto) 1 % (0-3) Neutrophils # (Auto) 7.2 x10^3uL (1.8-7.7) Lymphocytes # (Auto) 2.0 x10^3/uL (1.0-4.8) Monocytes # (Auto) 0.8 x10^3/uL (0.0-1.1) Eosinophils # (Auto) 0.2 x10^3/uL (0.0-0.7) Basophils # (Auto) 0.0 x10^3/uL (0.0-0.2) Sodium Level 140 mmol/L (136-145) Potassium Level 4.3 mmol/L (3.5-5.1) Chloride Level 102 mmol/L (98-107) Carbon Dioxide Level 34 mmol/L (21-32) H Anion Gap 4 (6-14) L Blood Urea Nitrogen 15 mg/dL (8-26) Creatinine 1.4 mg/dL (0.7-1.3) H Estimated GFR (Cockcroft-Gault) 50.2 BUN/Creatinine Ratio 11 (6-20) Glucose Level 111 mg/dL (70-99) H Calcium Level 9.2 mg/dL (8.5-10.1) Total Bilirubin 0.3 mg/dL (0.2-1.0) Aspartate Amino Transferase (AST) 10 U/L (15-37) L Alanine Aminotransferase (ALT) 16 U/L (16-63) Alkaline Phosphatase 70 U/L (46-116) Total Protein 6.7 g/dL (6.4-8.2) Albumin 3.0 g/dL (3.4-5.0) L Albumin/Globulin Ratio 0.8 (1.0-1.7) L Valproic Acid Level 24 mcg/mL (50-100) L Valproic Acid Last Dose Date 02/24/18 Valproic Acid Last Dose Time 1700 Glucose (Fingerstick) 119 mg/dL (70-99) H 228 mg/dL (70-99) H 174 mg/dL (70-99) H Test 02/25/18 19:46 Glucose (Fingerstick) 179 mg/dL (70-99) H Current Medications: Meds: Current Medications Magnesium Chloride (Mag Delay) 64 mg 1X ONCE PO Last administered on at 20:39; Start 02/13/18 at 20:00; Stop 02/13/18 at 20:01; Status DC Acetaminophen (Tylenol) 650 mg PRN Q6HRS PRN PO PAIN / TEMP; Start 02/13/18 at 21:30; Stop 02/13/18 at 22:41; Status DC Multi-Ingredient Ointment (Analgesic [place]) 1 valerie PRN QID PRN TP MUSCLE PAIN; Start 02/13/18 at 21:30 Al Hydroxide/Mg Hydroxide (Mylanta Plus Xs) 15 ml PRN AFTMEALHC PRN PO DYSPEPSIA; Start 02/13/18 at 21:30 Magnesium Hydroxide (Milk Of Magnesia) 2,400 mg PRN QHS PRN PO CONSTIPATION; Start 02/13/18 at 21:30 Nicotine (Nicoderm Cq 14mg) 1 patch DAILY TD Last administered on 02/15/18at 08: 45; Start 02/14/18 at 09:00; Stop 02/15/18 at 15:45; Status DC Estradiol (Estrace) 1 mg DAILY PO Last administered on 02/25/18 07:48; Start 02/14/18 at 09:00 Fluoxetine HCl (PROzac) 60 mg DAILY PO Last administered on 02/25/18 07:45; Start 02/14/18 at 09:00 Non-Formulary Medication (Fluoxetine Hcl ) 40 mg DAILY PO ; Start 02/14/18 at 09 :00; Stop 02/14/18 at 09:00; Status DC Melatonin 6 mg QHS PO Last administered on 02/25/18at 20:09; Start 02/13/18 at 23:00 Quetiapine Fumarate (SEROquel) 50 mg QHS PO Last administered on 02/14/18 20: 29; Start 02/13/18 at 23:00; Stop 02/15/18 at 17:11; Status DC Trazodone HCl (Desyrel) 50 mg QHS PO Last administered on 02/25/18 20:08; Start 02/13/18 at 23:00 Acetaminophen (Tylenol) 650 mg PRN Q6HRS PRN PO PAIN / TEMP Last administered on 02/16/18at 20:08; Start 02/13/18 at 22:30 Clopidogrel Bisulfate (Plavix) 75 mg DAILY PO Last administered on 02/24/18 07 :54; Start 02/14/18 at 09:00 Insulin Glargine (Lantus) 32 units QHS SQ Last administered on 02/25/18 20:14 ; Start 02/13/18 at 23:00 Levothyroxine Sodium (Synthroid) 100 mcg DAILYAC PO Last administered on at 07:44; Start 02/14/18 at 07:30; Stop 02/23/18 at 07:54; Status DC Potassium Chloride (Klor-Con) 20 meq DAILY PO Last administered on 02/24/18 07 :55; Start 02/14/18 at 09:00 Diltiazem HCl (Cardizem) 45 mg DAILY PO Last administered on 02/25/18 07:47; Start 02/14/18 at 09:00 Pantoprazole Sodium (Protonix) 40 mg DAILYAC PO Last administered on 02/25/18 07:46; Start 02/14/18 at 07:30 Oxycodone HCl (Roxicodone) 5 mg PRN Q8HRS PRN PO PAIN Last administered on 02/24 17:27; Start 02/13/18 at 22:30 Prazosin HCl (Minipress) 2 mg QHS PO Last administered on 02/25/18 20:08; Start 02/13/18 at 23:00 Spironolactone (Aldactone) 25 mg DAILY PO Last administered on 02/25/18 07:46 ; Start 02/14/18 at 09:00 Insulin Human Lispro (HumaLOG) 0-7 UNITS TIDWMEALS SQ Last administered on 02/25at 12:04; Start 02/14/18 at 08:00 Dextrose 12.5 gm PRN Q15MIN PRN IV SEE COMMENTS; Start 02/13/18 at 22:30 Magnesium Oxide (Magnesium Oxide) 400 mg TID PO Last administered on 02/25/18at 20:07; Start 02/14/18 at 14:00 Influenza Virus Vaccine (Afluria Trivalent [id number] Syringe) 0.5 ml ONCE ONCE VAX IM ; Start 02/15/18 at 13:00; Stop 02/15/18 at 13:01; Status DC Pneumococcal Polyvalent Vaccine (Pneumovax 23) 0.5 ml ONCE ONCE VAX IM Last administered on 02/15/18at 13:59; Start 02/15/18 at 13:00; Stop 02/15/18 at 13:01 ; Status DC Quetiapine Fumarate (SEROquel) 75 mg QHS PO Last administered on 02/20/18at 20: 29; Start 02/15/18 at 21:00; Stop 02/21/18 at 16:57; Status DC Amoxicillin (Amoxil) 500 mg [id number] PO Last administered on 02/24/18at 07:54; Start 02/17/18 at 21:00; Stop 02/24/18 at 09:00; Status DC Lactobacillus Rhamnosus (Culturelle) 1 cap TID PO Last administered on at 20:08; Start 02/17/18 at 21:00; Stop 02/28/18 at 21:00 Loperamide HCl (Imodium) 2 mg PRN Q1HR PRN PO DIARRHEA; Start 02/17/18 at 17:30 Loperamide HCl (Imodium) 4 mg PRN DAILY PRN PO DIARRHEA Last administered on at 09:32; Start 02/17/18 at 17:30 Divalproex Sodium (Depakote Sprinkles) 125 mg BIDWMEALS PO Last administered on 02/22/18at 08:13; Start 02/19/18 at 08:00; Stop 02/22/18 at 16:37; Status DC Mupirocin (Bactroban) 1 valerie BID TP Last administered on 02/25/18at 20:06; Start 02/21/18 at 21:00 Quetiapine Fumarate (SEROquel) 100 mg QHS PO Last administered on 02/25/18at 20: 09; Start 02/21/18 at 21:00 Divalproex Sodium (Depakote Sprinkles) 250 mg BIDWMEALS PO Last administered on 02/25/18at 17:34; Start 02/22/18 at 17:00 Levothyroxine Sodium (Synthroid) 100 mcg DAILY06 PO Last administered on at 06:00; Start 02/24/18 at 06:00 Cyclobenzaprine HCl (Flexeril) 5 mg PRN TID PRN PO MUSCLE SPASMS Last administered on 02/25/18at 15:05; Start 02/23/18 at 09:45; Stop 02/28/18 at 09:44 Active Scripts Active Reported Tylenol (Acetaminophen) 325 Mg Tablet 650 Mg PO PRN Q6HRS PRN Trazodone Hcl 50 Mg Tablet 50 Mg PO QHS Seroquel (Quetiapine Fumarate) 50 Mg Tablet 50 Mg PO QHS Prazosin Hcl 2 Mg Capsule 2 Mg PO QHS Klor-Con M20 (Potassium Chloride) 20 Meq Tab.er.prt 20 Meq PO DAILY Oxycodone Hcl 5 Mg Capsule 5 Mg PO PRN Q8HRS PRN Omeprazole 20 Mg Tablet.dr 20 Mg PO DAILY Melatonin 3 Mg Tablet 6 Mg PO QHS Levothyroxine Sodium 100 Mcg Tablet 100 Mcg PO DAILYAC Lantus Solostar (Insulin Glargine,Hum.rec.anlog) 100 Unit/1 Ml Insuln.pen 32 Unit SQ QHS Fluoxetine Hcl 40 Mg Capsule 40 Mg PO DAILY Fluoxetine Hcl 20 Mg Tablet 20 Mg PO DAILY Estradiol 1 Mg Tablet 1 Mg PO DAILY Diltiazem Hcl Tablet (Diltiazem Hcl) 90 Mg Tablet 45 Mg PO DAILY Clopidogrel (Clopidogrel Bisulfate) 75 Mg Tablet 75 Mg PO DAILY Aldactone (Spironolactone) 25 Mg Tablet 25 Mg PO DAILY I have reviewed the current psychotropics carefully including drug interactions. Risk benefit ratio favors no change other than as noted in my dictated progress note. 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
--- NOTE | 2018-02-26 01:48 | PN ---
DATE: 02/24/2018 This late entry for 02/24/2018 covers elements not covered in my initial note. SUBJECTIVE: I met with the patient in the evening. The patient slept 7 hours previous night, has had some increased pain, received oxycodone at 9 and Flexeril at 12. He remains somewhat withdrawn, spends much time in his bed, but not aggressive. REVIEW OF SYSTEMS: Ambulation impaired. No CV, , pulmonary, eye system symptoms on review, does complain of the pain and is noted. MENTAL STATUS EXAM: Reasonably oriented. Speech is coherent, abstraction fair, computation impaired, language function intact. Attention span short. Mood and affect somewhat withdrawn. LABORATORY DATA: Reviewed. IMPRESSION: Unchanged from initial note. PLAN: No change from initial note. MAN Gertrude RADER MD DR: NIRAJ/yani JOB#: [id number] / [id number]
[2018-02-26 05:43] VITALS: BP 147/70
[2018-02-26] MEDS: LEVOTHYROXINE 100 MCG TABLET PO SCH (05:51)
[2018-02-26] MEDS: DIVALPROEX 125 MG CAP.SPRINK PO SCH ×2 (07:35→17:11)
[2018-02-26] MEDS: PANTOPRAZOLE 40 MG TABLET. PO SCH (07:35)
[2018-02-26] MEDS: LACTOBACILLUS RHAMNOSUS GG 1 CAPSULE. PO SCH ×3 (07:36→20:06)
[2018-02-26] MEDS: FLUoxetine HCL 20 MG CAPSULE PO SCH (07:36)
[2018-02-26] MEDS: CLOPIDOGREL BISULFATE 75 MG TABLET PO SCH (07:36)
[2018-02-26] MEDS: ESTRADIOL 1 MG TABLET PO SCH (07:36)
[2018-02-26] MEDS: MAGNESIUM OXIDE 400 MG TABLET PO SCH ×3 (07:36→20:06)
[2018-02-26] MEDS: POTASSIUM CHLORIDE 20 MEQ TABLET.ER. PO SCH (07:36)
[2018-02-26] MEDS: SPIRONOLACTONE 25 MG TABLET PO SCH (07:37)
[2018-02-26] MEDS: dilTIAZem HCL 30 MG TABLET PO SCH (07:38)
[2018-02-26] MEDS: INSULIN LISPRO 300 UNITS/3 ML INSULN.PEN. SQ SCH ×3 (07:40→17:23)
[2018-02-26] MEDS: MUPIROCIN 2% TOPICAL OINTMENT 22GM TUBE. TP SCH ×2 (07:41→20:07)
[2018-02-26] MEDS: oxyCODONE IR 5 MG TABLET PO PRN (14:39)
[2018-02-26 15:11] VITALS: BP 137/60
--- NOTE | 2018-02-26 20:01 | PDOC ---
Exam Note: Giovanny Note: Please also refer to the separate dictated note~for this date of service dictated separately.~Patient seen individually. Discussed the patient with Nursing staff reviewed the chart.~Reviewed interim history and current functioning. Reviewed vital signs,~Labs/ Radiology~and current medications noted below. Continue current treatment with the changes noted in the dictated addendum note Assessment: Vital Signs: Vital Signs Date Time Temp Pulse Resp B/P (MAP) Pulse Ox O2 Delivery O2 Flow Rate FiO2 02/26/18 15:40 18 02/26/18 15:11 97.5 71 137/60 (85) 96 02/26/18 05:43 Room Air I&O Intake and Output 02/26/18 07:00 Intake Total 240 ml Balance 240 ml Intake Oral 240 ml # Bowel Movements 1 Labs: Laboratory Tests Test 02/26/18 07:09 02/26/18 11:17 02/26/18 16:42 Glucose (Fingerstick) 123 mg/dL (70-99) H 176 mg/dL (70-99) H 168 mg/dL (70-99) H Current Medications: Meds: Current Medications Magnesium Chloride (Mag Delay) 64 mg 1X ONCE PO Last administered on at 20:39; Start 02/13/18 at 20:00; Stop 02/13/18 at 20:01; Status DC Acetaminophen (Tylenol) 650 mg PRN Q6HRS PRN PO PAIN / TEMP; Start 02/13/18 at 21:30; Stop 02/13/18 at 22:41; Status DC Multi-Ingredient Ointment (Analgesic [place]) 1 valerie PRN QID PRN TP MUSCLE PAIN; Start 02/13/18 at 21:30 Al Hydroxide/Mg Hydroxide (Mylanta Plus Xs) 15 ml PRN AFTMEALHC PRN PO DYSPEPSIA; Start 02/13/18 at 21:30 Magnesium Hydroxide (Milk Of Magnesia) 2,400 mg PRN QHS PRN PO CONSTIPATION; Start 02/13/18 at 21:30 Nicotine (Nicoderm Cq 14mg) 1 patch DAILY TD Last administered on 02/15/18at 08: 45; Start 02/14/18 at 09:00; Stop 02/15/18 at 15:45; Status DC Estradiol (Estrace) 1 mg DAILY PO Last administered on 9/30/18at 07:36; Start 02/14/18 at 09:00 Fluoxetine HCl (PROzac) 60 mg DAILY PO Last administered on 02/26/18 07:36; Start 02/14/18 at 09:00 Non-Formulary Medication (Fluoxetine Hcl ) 40 mg DAILY PO ; Start 02/14/18 at 09 :00; Stop 02/14/18 at 09:00; Status DC Melatonin 6 mg QHS PO Last administered on 02/25/18 20:09; Start 02/13/18 at 23:00 Quetiapine Fumarate (SEROquel) 50 mg QHS PO Last administered on 02/14/18 20: 29; Start 02/13/18 at 23:00; Stop 02/15/18 at 17:11; Status DC Trazodone HCl (Desyrel) 50 mg QHS PO Last administered on 02/25/18 20:08; Start 02/13/18 at 23:00 Acetaminophen (Tylenol) 650 mg PRN Q6HRS PRN PO PAIN / TEMP Last administered on 02/16/18 20:08; Start 02/13/18 at 22:30 Clopidogrel Bisulfate (Plavix) 75 mg DAILY PO Last administered on 02/26/18 07 :36; Start 02/14/18 at 09:00 Insulin Glargine (Lantus) 32 units QHS SQ Last administered on 02/25/18 20:14 ; Start 02/13/18 at 23:00 Levothyroxine Sodium (Synthroid) 100 mcg DAILYAC PO Last administered on 07:44; Start 02/14/18 at 07:30; Stop 02/23/18 at 07:54; Status DC Potassium Chloride (Klor-Con) 20 meq DAILY PO Last administered on 02/26/18 07 :36; Start 02/14/18 at 09:00 Diltiazem HCl (Cardizem) 45 mg DAILY PO Last administered on 02/26/18 07:38; Start 02/14/18 at 09:00 Pantoprazole Sodium (Protonix) 40 mg DAILYAC PO Last administered on 02/26/18 07:35; Start 02/14/18 at 07:30 Oxycodone HCl (Roxicodone) 5 mg PRN Q8HRS PRN PO PAIN Last administered on 02/26 14:39; Start 02/13/18 at 22:30 Prazosin HCl (Minipress) 2 mg QHS PO Last administered on 02/25/18 20:08; Start 02/13/18 at 23:00 Spironolactone (Aldactone) 25 mg DAILY PO Last administered on 02/26/18 07:37 ; Start 02/14/18 at 09:00 Insulin Human Lispro (HumaLOG) 0-7 UNITS TIDWMEALS SQ Last administered on 02/26 17:23; Start 02/14/18 at 08:00 Dextrose 12.5 gm PRN Q15MIN PRN IV SEE COMMENTS; Start 02/13/18 at 22:30 Magnesium Oxide (Magnesium Oxide) 400 mg TID PO Last administered on 02/26/18 13:29; Start 02/14/18 at 14:00 Influenza Virus Vaccine (Afluria Trivalent [id number] Syringe) 0.5 ml ONCE ONCE VAX IM ; Start 02/15/18 at 13:00; Stop 02/15/18 at 13:01; Status DC Pneumococcal Polyvalent Vaccine (Pneumovax 23) 0.5 ml ONCE ONCE VAX IM Last administered on 02/15/18at 13:59; Start 02/15/18 at 13:00; Stop 02/15/18 at 13:01 ; Status DC Quetiapine Fumarate (SEROquel) 75 mg QHS PO Last administered on 02/20/18 20: 29; Start 02/15/18 at 21:00; Stop 02/21/18 at 16:57; Status DC Amoxicillin (Amoxil) 500 mg [id number] PO Last administered on 02/24/18at 07:54; Start 02/17/18 at 21:00; Stop 02/24/18 at 09:00; Status DC Lactobacillus Rhamnosus (Culturelle) 1 cap TID PO Last administered on 13:29; Start 02/17/18 at 21:00; Stop 02/28/18 at 21:00 Loperamide HCl (Imodium) 2 mg PRN Q1HR PRN PO DIARRHEA; Start 02/17/18 at 17:30 Loperamide HCl (Imodium) 4 mg PRN DAILY PRN PO DIARRHEA Last administered on 9/ 27/18at 09:32; Start 02/17/18 at 17:30 Divalproex Sodium (Depakote Sprinkles) 125 mg BIDWMEALS PO Last administered on 02/22/18at 08:13; Start 02/19/18 at 08:00; Stop 02/22/18 at 16:37; Status DC Mupirocin (Bactroban) 1 valerie BID TP Last administered on 02/26/18at 07:41; Start 02/21/18 at 21:00 Quetiapine Fumarate (SEROquel) 100 mg QHS PO Last administered on 02/25/18at 20: 09; Start 02/21/18 at 21:00 Divalproex Sodium (Depakote Sprinkles) 250 mg BIDWMEALS PO Last administered on 02/26/18at 17:11; Start 02/22/18 at 17:00 Levothyroxine Sodium (Synthroid) 100 mcg DAILY06 PO Last administered on at 05:51; Start 02/24/18 at 06:00 Cyclobenzaprine HCl (Flexeril) 5 mg PRN TID PRN PO MUSCLE SPASMS Last administered on 02/25/18at 15:05; Start 02/23/18 at 09:45; Stop 02/28/18 at 09:44 Active Scripts Active Reported Tylenol (Acetaminophen) 325 Mg Tablet 650 Mg PO PRN Q6HRS PRN Trazodone Hcl 50 Mg Tablet 50 Mg PO QHS Seroquel (Quetiapine Fumarate) 50 Mg Tablet 50 Mg PO QHS Prazosin Hcl 2 Mg Capsule 2 Mg PO QHS Klor-Con M20 (Potassium Chloride) 20 Meq Tab.er.prt 20 Meq PO DAILY Oxycodone Hcl 5 Mg Capsule 5 Mg PO PRN Q8HRS PRN Omeprazole 20 Mg Tablet.dr 20 Mg PO DAILY Melatonin 3 Mg Tablet 6 Mg PO QHS Levothyroxine Sodium 100 Mcg Tablet 100 Mcg PO DAILYAC Lantus Solostar (Insulin Glargine,Hum.rec.anlog) 100 Unit/1 Ml Insuln.pen 32 Unit SQ QHS Fluoxetine Hcl 40 Mg Capsule 40 Mg PO DAILY Fluoxetine Hcl 20 Mg Tablet 20 Mg PO DAILY Estradiol 1 Mg Tablet 1 Mg PO DAILY Diltiazem Hcl Tablet (Diltiazem Hcl) 90 Mg Tablet 45 Mg PO DAILY Clopidogrel (Clopidogrel Bisulfate) 75 Mg Tablet 75 Mg PO DAILY Aldactone (Spironolactone) 25 Mg Tablet 25 Mg PO DAILY I have reviewed the current psychotropics carefully including drug interactions. Risk benefit ratio favors no change other than as noted in my dictated progress note. 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
[2018-02-26] MEDS: QUEtiapine 50 MG TABLET. PO SCH (20:06)
[2018-02-26] MEDS: MELATONIN 3 MG TABLET PO SCH (20:06)
[2018-02-26] MEDS: traZODone 50 MG TABLET. PO SCH (20:06)
[2018-02-26] MEDS: PRAZOSIN 1 MG CAPSULE. PO SCH (20:06)
[2018-02-26] MEDS: INSULIN GLARGINE 300 UNITS/3 ML INSULN.PEN. SQ SCH (20:08)
[2018-02-27 05:27] VITALS: BP 104/49
[2018-02-27] MEDS: LEVOTHYROXINE 100 MCG TABLET PO SCH ×2 (05:46→07:21)
[2018-02-27] MEDS: DIVALPROEX 125 MG CAP.SPRINK PO SCH ×2 (07:20→17:22)
[2018-02-27] MEDS: CLOPIDOGREL BISULFATE 75 MG TABLET PO SCH (07:21)
[2018-02-27] MEDS: MAGNESIUM OXIDE 400 MG TABLET PO SCH ×3 (07:21→19:38)
[2018-02-27] MEDS: FLUoxetine HCL 20 MG CAPSULE PO SCH (07:21)
[2018-02-27] MEDS: PANTOPRAZOLE 40 MG TABLET. PO SCH (07:21)
[2018-02-27] MEDS: LACTOBACILLUS RHAMNOSUS GG 1 CAPSULE. PO SCH ×3 (07:22→19:37)
[2018-02-27] MEDS: POTASSIUM CHLORIDE 20 MEQ TABLET.ER. PO SCH (07:22)
[2018-02-27] MEDS: dilTIAZem HCL 30 MG TABLET PO SCH (07:22)
[2018-02-27] MEDS: SPIRONOLACTONE 25 MG TABLET PO SCH (07:23)
[2018-02-27] MEDS: INSULIN LISPRO 300 UNITS/3 ML INSULN.PEN. SQ SCH ×3 (08:00→17:21)
[2018-02-27] MEDS: ESTRADIOL 1 MG TABLET PO SCH (08:09)
[2018-02-27] MEDS: MUPIROCIN 2% TOPICAL OINTMENT 22GM TUBE. TP SCH ×2 (09:00→19:41)
[2018-02-27 16:10] VITALS: BP 155/61
[2018-02-27] MEDS: MELATONIN 3 MG TABLET PO SCH (19:37)
[2018-02-27] MEDS: traZODone 50 MG TABLET. PO SCH (19:38)
[2018-02-27] MEDS: QUEtiapine 50 MG TABLET. PO SCH (19:39)
[2018-02-27] MEDS: PRAZOSIN 1 MG CAPSULE. PO SCH (19:39)
[2018-02-27] MEDS: INSULIN GLARGINE 300 UNITS/3 ML INSULN.PEN. SQ SCH (19:40)
[2018-02-27] MEDS: oxyCODONE IR 5 MG TABLET PO PRN (20:10)
--- NOTE | 2018-02-27 20:17 | PDOC ---
Exam Note: Giovanny Note: Please also refer to the separate dictated note~for this date of service dictated separately.~Patient seen individually. Discussed the patient with Nursing staff reviewed the chart.~Reviewed interim history and current functioning. Reviewed vital signs,~Labs/ Radiology~and current medications noted below. Continue current treatment with the changes noted in the dictated addendum note Assessment: Vital Signs: Vital Signs Date Time Temp Pulse Resp B/P (MAP) Pulse Ox O2 Delivery O2 Flow Rate FiO2 02/27/18 20:10 18 98 Room Air 02/27/18 19:39 73 155/61 02/27/18 16:10 97.9 I&O Intake and Output 02/27/18 07:00 Intake Total 1080 ml Balance 1080 ml Intake Oral 1080 ml # Voids 2 Labs: Laboratory Tests Test 02/27/18 07:25 02/27/18 12:08 02/27/18 17:13 Glucose (Fingerstick) 124 mg/dL (70-99) H 166 mg/dL (70-99) H 184 mg/dL (70-99) H Current Medications: Meds: Current Medications Magnesium Chloride (Mag Delay) 64 mg 1X ONCE PO Last administered on at 20:39; Start 02/13/18 at 20:00; Stop 02/13/18 at 20:01; Status DC Acetaminophen (Tylenol) 650 mg PRN Q6HRS PRN PO PAIN / TEMP; Start 02/13/18 at 21:30; Stop 02/13/18 at 22:41; Status DC Multi-Ingredient Ointment (Analgesic [place]) 1 valerie PRN QID PRN TP MUSCLE PAIN; Start 02/13/18 at 21:30 Al Hydroxide/Mg Hydroxide (Mylanta Plus Xs) 15 ml PRN AFTMEALHC PRN PO DYSPEPSIA; Start 02/13/18 at 21:30 Magnesium Hydroxide (Milk Of Magnesia) 2,400 mg PRN QHS PRN PO CONSTIPATION; Start 02/13/18 at 21:30 Nicotine (Nicoderm Cq 14mg) 1 patch DAILY TD Last administered on 02/15/18at 08: 45; Start 02/14/18 at 09:00; Stop 02/15/18 at 15:45; Status DC Estradiol (Estrace) 1 mg DAILY PO Last administered on 02/27/18at 08:09; Start 02/14/18 at 09:00 Fluoxetine HCl (PROzac) 60 mg DAILY PO Last administered on 02/27/18 07:21; Start 02/14/18 at 09:00 Non-Formulary Medication (Fluoxetine Hcl ) 40 mg DAILY PO ; Start 02/14/18 at 09 :00; Stop 02/14/18 at 09:00; Status DC Melatonin 6 mg QHS PO Last administered on 02/27/18 19:37; Start 02/13/18 at 23:00 Quetiapine Fumarate (SEROquel) 50 mg QHS PO Last administered on 02/14/18 20: 29; Start 02/13/18 at 23:00; Stop 02/15/18 at 17:11; Status DC Trazodone HCl (Desyrel) 50 mg QHS PO Last administered on 02/27/18 19:38; Start 02/13/18 at 23:00 Acetaminophen (Tylenol) 650 mg PRN Q6HRS PRN PO PAIN / TEMP Last administered on 02/16/18 20:08; Start 02/13/18 at 22:30 Clopidogrel Bisulfate (Plavix) 75 mg DAILY PO Last administered on 02/27/18 07 :21; Start 02/14/18 at 09:00 Insulin Glargine (Lantus) 32 units QHS SQ Last administered on 02/27/18 19:40 ; Start 02/13/18 at 23:00 Levothyroxine Sodium (Synthroid) 100 mcg DAILYAC PO Last administered on 07:44; Start 02/14/18 at 07:30; Stop 02/23/18 at 07:54; Status DC Potassium Chloride (Klor-Con) 20 meq DAILY PO Last administered on 02/27/18 07 :22; Start 02/14/18 at 09:00 Diltiazem HCl (Cardizem) 45 mg DAILY PO Last administered on 02/26/18 07:38; Start 02/14/18 at 09:00 Pantoprazole Sodium (Protonix) 40 mg DAILYAC PO Last administered on 02/27/18 07:21; Start 02/14/18 at 07:30 Oxycodone HCl (Roxicodone) 5 mg PRN Q8HRS PRN PO PAIN Last administered on 02/27at 20:10; Start 02/13/18 at 22:30 Prazosin HCl (Minipress) 2 mg QHS PO Last administered on 02/27/18at 19:39; Start 02/13/18 at 23:00 Spironolactone (Aldactone) 25 mg DAILY PO Last administered on 02/26/18at 07:37 ; Start 02/14/18 at 09:00 Insulin Human Lispro (HumaLOG) 0-7 UNITS TIDWMEALS SQ Last administered on 02/27 17:21; Start 02/14/18 at 08:00 Dextrose 12.5 gm PRN Q15MIN PRN IV SEE COMMENTS; Start 02/13/18 at 22:30 Magnesium Oxide (Magnesium Oxide) 400 mg TID PO Last administered on 02/27/18at 19:38; Start 02/14/18 at 14:00 Influenza Virus Vaccine (Afluria Trivalent [id number] Syringe) 0.5 ml ONCE ONCE VAX IM ; Start 02/15/18 at 13:00; Stop 02/15/18 at 13:01; Status DC Pneumococcal Polyvalent Vaccine (Pneumovax 23) 0.5 ml ONCE ONCE VAX IM Last administered on 02/15/18at 13:59; Start 02/15/18 at 13:00; Stop 02/15/18 at 13:01 ; Status DC Quetiapine Fumarate (SEROquel) 75 mg QHS PO Last administered on 02/20/18at 20: 29; Start 02/15/18 at 21:00; Stop 02/21/18 at 16:57; Status DC Amoxicillin (Amoxil) 500 mg [id number] PO Last administered on 02/24/18at 07:54; Start 02/17/18 at 21:00; Stop 02/24/18 at 09:00; Status DC Lactobacillus Rhamnosus (Culturelle) 1 cap TID PO Last administered on 19:37; Start 02/17/18 at 21:00; Stop 02/28/18 at 21:00 Loperamide HCl (Imodium) 2 mg PRN Q1HR PRN PO DIARRHEA; Start 02/17/18 at 17:30 Loperamide HCl (Imodium) 4 mg PRN DAILY PRN PO DIARRHEA Last administered on at 09:32; Start 02/17/18 at 17:30 Divalproex Sodium (Depakote Sprinkles) 125 mg BIDWMEALS PO Last administered on 02/22/18at 08:13; Start 02/19/18 at 08:00; Stop 02/22/18 at 16:37; Status DC Mupirocin (Bactroban) 1 valerie BID TP Last administered on 02/27/18 19:41; Start 02/21/18 at 21:00 Quetiapine Fumarate (SEROquel) 100 mg QHS PO Last administered on 02/27/18at 19: 39; Start 02/21/18 at 21:00 Divalproex Sodium (Depakote Sprinkles) 250 mg BIDWMEALS PO Last administered on 02/27/18 17:22; Start 02/22/18 at 17:00 Levothyroxine Sodium (Synthroid) 100 mcg DAILY06 PO Last administered on 07:21; Start 02/24/18 at 06:00 Cyclobenzaprine HCl (Flexeril) 5 mg PRN TID PRN PO MUSCLE SPASMS Last administered on 02/25/18at 15:05; Start 02/23/18 at 09:45; Stop 02/28/18 at 09:44 Active Scripts Active Reported Tylenol (Acetaminophen) 325 Mg Tablet 650 Mg PO PRN Q6HRS PRN Trazodone Hcl 50 Mg Tablet 50 Mg PO QHS Seroquel (Quetiapine Fumarate) 50 Mg Tablet 50 Mg PO QHS Prazosin Hcl 2 Mg Capsule 2 Mg PO QHS Klor-Con M20 (Potassium Chloride) 20 Meq Tab.er.prt 20 Meq PO DAILY Oxycodone Hcl 5 Mg Capsule 5 Mg PO PRN Q8HRS PRN Omeprazole 20 Mg Tablet.dr 20 Mg PO DAILY Melatonin 3 Mg Tablet 6 Mg PO QHS Levothyroxine Sodium 100 Mcg Tablet 100 Mcg PO DAILYAC Lantus Solostar (Insulin Glargine,Hum.rec.anlog) 100 Unit/1 Ml Insuln.pen 32 Unit SQ QHS Fluoxetine Hcl 40 Mg Capsule 40 Mg PO DAILY Fluoxetine Hcl 20 Mg Tablet 20 Mg PO DAILY Estradiol 1 Mg Tablet 1 Mg PO DAILY Diltiazem Hcl Tablet (Diltiazem Hcl) 90 Mg Tablet 45 Mg PO DAILY Clopidogrel (Clopidogrel Bisulfate) 75 Mg Tablet 75 Mg PO DAILY Aldactone (Spironolactone) 25 Mg Tablet 25 Mg PO DAILY I have reviewed the current psychotropics carefully including drug interactions. Risk benefit ratio favors no change other than as noted in my dictated progress note. 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
--- NOTE | 2018-02-27 21:02 | PN ---
DATE: 02/25/2018 PSYCHIATRIC PROGRESS NOTE This late entry 02/25/2018 covers elements not covered in my initial note. SUBJECTIVE: I met with the patient in the evening. The patient slept 7-1/4 hours previous evening. He has been overall compliant, cooperative, somewhat withdrawn to his room, less irritable, but gets irritable, angry if not allowed to lie down. REVIEW OF SYSTEMS: Ambulation impaired, in wheelchair. No CV, , pulmonary, eye, ENT system symptoms on review. MENTAL STATUS EXAM: Oriented to himself and situation. Speech has some latency, coherent. Abstraction fair. Computation, able to do two steps on serial 7's. Attention span somewhat short. Language function intact. Mood and affect improved. No suicidal or homicidal ideation. LABORATORY DATA: Reviewed. IMPRESSION: Psychotic disorder, unspecified; bipolar 1 disorder, mixed with psychotic features; anxiety disorder, unspecified. PLAN: Continue psychotropics from initial note. Valproic acid level is 24, subtherapeutic, but we may consider increasing the Depakote to reach therapeutic level depending on his progress. He has not been trying to ingest sugar packets or other things like he was doing at the correction, which is an improvement. EMY RADER MD DR: NIRAJ/yani JOB#: [id number] / [id number]
--- NOTE | 2018-02-27 21:07 | PN ---
DATE: 02/26/2018 This late entry 02/26/2018 covers elements not covered in my initial note. SUBJECTIVE: I met with the patient in the evening. The patient slept 8-1/2 hours previous night. He has been pleasant, not aggressive, disruptive at times; he gets agitated, hollering per nursing report; wanting a pain medication, but then redirects. REVIEW OF SYSTEMS: Ambulation impaired, in bed. No CV, , pulmonary, eye system symptoms on review. MENTAL STATUS EXAM: Reasonably oriented. Speech is coherent, has some latency. Abstraction fair. Computation, able to do two steps on serial 7's. No active suicidal or homicidal ideation. LABORATORY DATA: Reviewed. IMPRESSION: Psychotic disorder, unspecified; bipolar 1 disorder, mixed with psychotic features, in partial remission. Rest unchanged. PLAN: Continue psychotropics from initial note. If we see, recurrence of mood lability, we will increase the Depakote to reach therapeutic level. MAN Gertrude RADER MD DR: NIRAJ/yani JOB#: [id number] / [id number]
[2018-02-28 05:30] VITALS: BP 162/73
[2018-02-28] MEDS: INSULIN LISPRO 300 UNITS/3 ML INSULN.PEN. SQ SCH ×3 (08:00→17:00)
[2018-02-28] MEDS: CLOPIDOGREL BISULFATE 75 MG TABLET PO SCH (08:17)
[2018-02-28] MEDS: dilTIAZem HCL 30 MG TABLET PO SCH (08:17)
[2018-02-28] MEDS: LEVOTHYROXINE 100 MCG TABLET PO SCH (08:18)
[2018-02-28] MEDS: SPIRONOLACTONE 25 MG TABLET PO SCH (08:18)
[2018-02-28] MEDS: MAGNESIUM OXIDE 400 MG TABLET PO SCH ×3 (08:18→20:03)
[2018-02-28] MEDS: POTASSIUM CHLORIDE 20 MEQ TABLET.ER. PO SCH (08:18)
[2018-02-28] MEDS: DIVALPROEX 125 MG CAP.SPRINK PO SCH ×2 (08:18→17:33)
[2018-02-28] MEDS: FLUoxetine HCL 20 MG CAPSULE PO SCH (08:18)
[2018-02-28] MEDS: PANTOPRAZOLE 40 MG TABLET. PO SCH (08:19)
[2018-02-28] MEDS: LACTOBACILLUS RHAMNOSUS GG 1 CAPSULE. PO SCH ×3 (08:19→20:03)
[2018-02-28] MEDS: MUPIROCIN 2% TOPICAL OINTMENT 22GM TUBE. TP SCH ×2 (08:20→20:07)
[2018-02-28] MEDS: ESTRADIOL 1 MG TABLET PO SCH (08:20)
[2018-02-28 15:52] VITALS: BP 105/63
[2018-02-28] MEDS: MELATONIN 3 MG TABLET PO SCH (20:02)
[2018-02-28] MEDS: traZODone 50 MG TABLET. PO SCH (20:03)
[2018-02-28] MEDS: QUEtiapine 50 MG TABLET. PO SCH (20:03)
[2018-02-28] MEDS: PRAZOSIN 1 MG CAPSULE. PO SCH (20:04)
[2018-02-28] MEDS: INSULIN GLARGINE 300 UNITS/3 ML INSULN.PEN. SQ SCH (20:07)
[2018-02-28] MEDS: oxyCODONE IR 5 MG TABLET PO PRN (20:13)
--- NOTE | 2018-02-28 20:41 | PDOC ---
Exam Note: Giovanny Note: Please also refer to the separate dictated note~for this date of service dictated separately.~Patient seen individually. Discussed the patient with Nursing staff reviewed the chart.~Reviewed interim history and current functioning. Reviewed vital signs,~Labs/ Radiology~and current medications noted below. Continue current treatment with the changes noted in the dictated addendum note Assessment: Vital Signs: Vital Signs Date Time Temp Pulse Resp B/P (MAP) Pulse Ox O2 Delivery O2 Flow Rate FiO2 02/28/18 20:13 18 96 Room Air 02/28/18 20:04 57 105/63 02/28/18 15:52 97.9 I&O Intake and Output 02/28/18 07:00 Intake Total 1320 ml Balance 1320 ml Intake Oral 1320 ml # Voids 2 # Bowel Movements 2 Labs: Laboratory Tests Test 02/28/18 07:39 02/28/18 12:11 02/28/18 16:33 02/28/18 19:41 Glucose (Fingerstick) 129 mg/dL (70-99) H 209 mg/dL (70-99) H 128 mg/dL (70-99) H 208 mg/dL (70-99) H Current Medications: Meds: Current Medications Magnesium Chloride (Mag Delay) 64 mg 1X ONCE PO Last administered on at 20:39; Start 02/13/18 at 20:00; Stop 02/13/18 at 20:01; Status DC Acetaminophen (Tylenol) 650 mg PRN Q6HRS PRN PO PAIN / TEMP; Start 02/13/18 at 21:30; Stop 02/13/18 at 22:41; Status DC Multi-Ingredient Ointment (Analgesic [place]) 1 valerie PRN QID PRN TP MUSCLE PAIN; Start 02/13/18 at 21:30 Al Hydroxide/Mg Hydroxide (Mylanta Plus Xs) 15 ml PRN AFTMEALHC PRN PO DYSPEPSIA; Start 02/13/18 at 21:30 Magnesium Hydroxide (Milk Of Magnesia) 2,400 mg PRN QHS PRN PO CONSTIPATION; Start 02/13/18 at 21:30 Nicotine (Nicoderm Cq 14mg) 1 patch DAILY TD Last administered on 02/15/18at 08: 45; Start 02/14/18 at 09:00; Stop 02/15/18 at 15:45; Status DC Estradiol (Estrace) 1 mg DAILY PO Last administered on 02/28/18 08:20; Start 02/14/18 at 09:00 Fluoxetine HCl (PROzac) 60 mg DAILY PO Last administered on 02/28/18 08:18; Start 02/14/18 at 09:00 Non-Formulary Medication (Fluoxetine Hcl ) 40 mg DAILY PO ; Start 02/14/18 at 09 :00; Stop 02/14/18 at 09:00; Status DC Melatonin 6 mg QHS PO Last administered on 02/28/18 20:02; Start 02/13/18 at 23:00 Quetiapine Fumarate (SEROquel) 50 mg QHS PO Last administered on 02/14/18at 20: 29; Start 02/13/18 at 23:00; Stop 02/15/18 at 17:11; Status DC Trazodone HCl (Desyrel) 50 mg QHS PO Last administered on 02/28/18 20:03; Start 02/13/18 at 23:00 Acetaminophen (Tylenol) 650 mg PRN Q6HRS PRN PO PAIN / TEMP Last administered on 02/16/18at 20:08; Start 02/13/18 at 22:30 Clopidogrel Bisulfate (Plavix) 75 mg DAILY PO Last administered on 02/28/18 08 :17; Start 02/14/18 at 09:00 Insulin Glargine (Lantus) 32 units QHS SQ Last administered on 02/28/18 20:07 ; Start 02/13/18 at 23:00 Levothyroxine Sodium (Synthroid) 100 mcg DAILYAC PO Last administered on at 07:44; Start 02/14/18 at 07:30; Stop 02/23/18 at 07:54; Status DC Potassium Chloride (Klor-Con) 20 meq DAILY PO Last administered on 02/28/18 08 :18; Start 02/14/18 at 09:00 Diltiazem HCl (Cardizem) 45 mg DAILY PO Last administered on 02/28/18 08:17; Start 02/14/18 at 09:00 Pantoprazole Sodium (Protonix) 40 mg DAILYAC PO Last administered on 02/28/18 08:19; Start 02/14/18 at 07:30 Oxycodone HCl (Roxicodone) 5 mg PRN Q8HRS PRN PO PAIN Last administered on 02/28 20:13; Start 02/13/18 at 22:30 Prazosin HCl (Minipress) 2 mg QHS PO Last administered on 02/27/18at 19:39; Start 02/13/18 at 23:00 Spironolactone (Aldactone) 25 mg DAILY PO Last administered on 02/28/18 08:18 ; Start 02/14/18 at 09:00 Insulin Human Lispro (HumaLOG) 0-7 UNITS TIDWMEALS SQ Last administered on 02/28 12:27; Start 02/14/18 at 08:00 Dextrose 12.5 gm PRN Q15MIN PRN IV SEE COMMENTS; Start 02/13/18 at 22:30 Magnesium Oxide (Magnesium Oxide) 400 mg TID PO Last administered on 02/28/18at 20:03; Start 02/14/18 at 14:00 Influenza Virus Vaccine (Afluria Trivalent [id number] Syringe) 0.5 ml ONCE ONCE VAX IM ; Start 02/15/18 at 13:00; Stop 02/15/18 at 13:01; Status DC Pneumococcal Polyvalent Vaccine (Pneumovax 23) 0.5 ml ONCE ONCE VAX IM Last administered on 02/15/18at 13:59; Start 02/15/18 at 13:00; Stop 02/15/18 at 13:01 ; Status DC Quetiapine Fumarate (SEROquel) 75 mg QHS PO Last administered on 02/20/18at 20: 29; Start 02/15/18 at 21:00; Stop 02/21/18 at 16:57; Status DC Amoxicillin (Amoxil) 500 mg [id number] PO Last administered on 02/24/18at 07:54; Start 02/17/18 at 21:00; Stop 02/24/18 at 09:00; Status DC Lactobacillus Rhamnosus (Culturelle) 1 cap TID PO Last administered on at 20:03; Start 02/17/18 at 21:00; Stop 02/28/18 at 21:00 Loperamide HCl (Imodium) 2 mg PRN Q1HR PRN PO DIARRHEA; Start 02/17/18 at 17:30 Loperamide HCl (Imodium) 4 mg PRN DAILY PRN PO DIARRHEA Last administered on at 09:32; Start 02/17/18 at 17:30 Divalproex Sodium (Depakote Sprinkles) 125 mg BIDWMEALS PO Last administered on 02/22/18at 08:13; Start 02/19/18 at 08:00; Stop 02/22/18 at 16:37; Status DC Mupirocin (Bactroban) 1 valerie BID TP Last administered on 02/28/18at 20:07; Start 02/21/18 at 21:00 Quetiapine Fumarate (SEROquel) 100 mg QHS PO Last administered on 02/28/18at 20: 03; Start 02/21/18 at 21:00 Divalproex Sodium (Depakote Sprinkles) 250 mg BIDWMEALS PO Last administered on 02/28/18at 08:18; Start 02/22/18 at 17:00; Stop 02/28/18 at 17:26; Status DC Levothyroxine Sodium (Synthroid) 100 mcg DAILY06 PO Last administered on at 08:18; Start 02/24/18 at 06:00 Cyclobenzaprine HCl (Flexeril) 5 mg PRN TID PRN PO MUSCLE SPASMS Last administered on 02/25/18at 15:05; Start 02/23/18 at 09:45; Stop 02/28/18 at 09:45 ; Status DC Divalproex Sodium (Depakote Sprinkles) 250 mg DAILY PO ; Start 03/01/18 at 09:00 Divalproex Sodium (Depakote Sprinkles) 500 mg DAILY@1700 PO Last administered on 02/28/18at 17:33; Start 02/28/18 at 17:30 Active Scripts Active Reported Tylenol (Acetaminophen) 325 Mg Tablet 650 Mg PO PRN Q6HRS PRN Trazodone Hcl 50 Mg Tablet 50 Mg PO QHS Seroquel (Quetiapine Fumarate) 50 Mg Tablet 50 Mg PO QHS Prazosin Hcl 2 Mg Capsule 2 Mg PO QHS Klor-Con M20 (Potassium Chloride) 20 Meq Tab.er.prt 20 Meq PO DAILY Oxycodone Hcl 5 Mg Capsule 5 Mg PO PRN Q8HRS PRN Omeprazole 20 Mg Tablet.dr 20 Mg PO DAILY Melatonin 3 Mg Tablet 6 Mg PO QHS Levothyroxine Sodium 100 Mcg Tablet 100 Mcg PO DAILYAC Lantus Solostar (Insulin Glargine,Hum.rec.anlog) 100 Unit/1 Ml Insuln.pen 32 Unit SQ QHS Fluoxetine Hcl 40 Mg Capsule 40 Mg PO DAILY Fluoxetine Hcl 20 Mg Tablet 20 Mg PO DAILY Estradiol 1 Mg Tablet 1 Mg PO DAILY Diltiazem Hcl Tablet (Diltiazem Hcl) 90 Mg Tablet 45 Mg PO DAILY Clopidogrel (Clopidogrel Bisulfate) 75 Mg Tablet 75 Mg PO DAILY Aldactone (Spironolactone) 25 Mg Tablet 25 Mg PO DAILY I have reviewed the current psychotropics carefully including drug interactions. Risk benefit ratio favors no change other than as noted in my dictated progress note. 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
--- NOTE | 2018-02-28 21:16 | PN ---
DATE: 02/27/2018 This is a late entry for 02/27/2018 covers elements not covered in my initial note. SUBJECTIVE: I met with the patient in the evening. The patient slept 7-1/2 hours previous night. He is compliant with his medications, up for meals, remains somewhat withdrawn rest of the time, does have some short-term memory deficits, appears depressed, but minimizes this. REVIEW OF SYSTEMS: Ambulation impaired. No CV, , pulmonary, eye, ENT system symptoms on review. MENTAL STATUS EXAM: Oriented to himself and situation. Speech coherent, has some latency. Abstraction fair, computation impaired, language function intact, attention span short. Mood and affect somewhat withdrawn. LABORATORY DATA: Reviewed. IMPRESSION: Major depressive disorder with psychotic features; cognitive disorder, unspecified, rule out bipolar 1 disorder, mixed with psychotic features. PLAN: No change from a psychiatric standpoint. We will repeat a valproic acid level, adjust the Depakote, which is currently 250 b.i.d., last level was 24, subtherapeutic. MAN Gertrude RADER MD DR: NIRAJ/yani JOB#: [id number] / [id number]
[2018-03-01 05:20] VITALS: BP 145/73
[2018-03-01] MEDS: LEVOTHYROXINE 100 MCG TABLET PO SCH (07:59)
[2018-03-01] MEDS: PANTOPRAZOLE 40 MG TABLET. PO SCH (07:59)
[2018-03-01] MEDS: SPIRONOLACTONE 25 MG TABLET PO SCH (07:59)
[2018-03-01] MEDS: INSULIN LISPRO 300 UNITS/3 ML INSULN.PEN. SQ SCH ×3 (08:00→17:00)
[2018-03-01] MEDS: dilTIAZem HCL 30 MG TABLET PO SCH (08:01)
[2018-03-01] MEDS: POTASSIUM CHLORIDE 20 MEQ TABLET.ER. PO SCH (08:01)
[2018-03-01] MEDS: CLOPIDOGREL BISULFATE 75 MG TABLET PO SCH (08:01)
[2018-03-01] MEDS: MAGNESIUM OXIDE 400 MG TABLET PO SCH ×3 (08:01→20:15)
[2018-03-01] MEDS: FLUoxetine HCL 20 MG CAPSULE PO SCH (08:01)
[2018-03-01] MEDS: ESTRADIOL 1 MG TABLET PO SCH (08:02)
[2018-03-01] MEDS: DIVALPROEX 125 MG CAP.SPRINK PO SCH ×2 (08:05→17:28)
[2018-03-01] MEDS: MUPIROCIN 2% TOPICAL OINTMENT 22GM TUBE. TP SCH ×2 (09:00→20:18)
[2018-03-01 16:29] VITALS: BP 128/62
[2018-03-01] MEDS: MELATONIN 3 MG TABLET PO SCH (20:15)
[2018-03-01] MEDS: traZODone 50 MG TABLET. PO SCH (20:15)
[2018-03-01] MEDS: PRAZOSIN 1 MG CAPSULE. PO SCH (20:16)
[2018-03-01] MEDS: QUEtiapine 50 MG TABLET. PO SCH (20:16)
[2018-03-01] MEDS: INSULIN GLARGINE 300 UNITS/3 ML INSULN.PEN. SQ SCH (20:18)
[2018-03-01] MEDS: oxyCODONE IR 5 MG TABLET PO PRN (20:20)
--- NOTE | 2018-03-01 21:05 | PDOC ---
Exam Note: Giovanny Note: Please also refer to the separate dictated note~for this date of service dictated separately.~Patient seen individually. Discussed the patient with Nursing staff reviewed the chart.~Reviewed interim history and current functioning. Reviewed vital signs,~Labs/ Radiology~and current medications noted below. Continue current treatment with the changes noted in the dictated addendum note Assessment: Vital Signs: Vital Signs Date Time Temp Pulse Resp B/P (MAP) Pulse Ox O2 Delivery O2 Flow Rate FiO2 03/01/18 20:20 93 Room Air 03/01/18 20:16 87 128/62 03/01/18 16:29 98.7 18 I&O Intake and Output 03/01/18 07:00 Intake Total 1080 ml Balance 1080 ml Intake Oral 1080 ml # Bowel Movements 2 Labs: Laboratory Tests Test 03/01/18 07:21 03/01/18 11:40 03/01/18 16:22 03/01/18 19:23 Glucose (Fingerstick) 112 mg/dL (70-99) H 170 mg/dL (70-99) H 140 mg/dL (70-99) H 226 mg/dL (70-99) H Current Medications: Meds: Current Medications Magnesium Chloride (Mag Delay) 64 mg 1X ONCE PO Last administered on at 20:39; Start 02/13/18 at 20:00; Stop 02/13/18 at 20:01; Status DC Acetaminophen (Tylenol) 650 mg PRN Q6HRS PRN PO PAIN / TEMP; Start 02/13/18 at 21:30; Stop 02/13/18 at 22:41; Status DC Multi-Ingredient Ointment (Analgesic [place]) 1 valerie PRN QID PRN TP MUSCLE PAIN; Start 02/13/18 at 21:30 Al Hydroxide/Mg Hydroxide (Mylanta Plus Xs) 15 ml PRN AFTMEALHC PRN PO DYSPEPSIA; Start 02/13/18 at 21:30 Magnesium Hydroxide (Milk Of Magnesia) 2,400 mg PRN QHS PRN PO CONSTIPATION; Start 02/13/18 at 21:30 Nicotine (Nicoderm Cq 14mg) 1 patch DAILY TD Last administered on 02/15/18at 08: 45; Start 02/14/18 at 09:00; Stop 02/15/18 at 15:45; Status DC Estradiol (Estrace) 1 mg DAILY PO Last administered on 03/01/18 08:02; Start 02/14/18 at 09:00 Fluoxetine HCl (PROzac) 60 mg DAILY PO Last administered on 03/01/18 08:01; Start 02/14/18 at 09:00 Non-Formulary Medication (Fluoxetine Hcl ) 40 mg DAILY PO ; Start 02/14/18 at 09 :00; Stop 02/14/18 at 09:00; Status DC Melatonin 6 mg QHS PO Last administered on 03/01/18 20:15; Start 02/13/18 at 23:00 Quetiapine Fumarate (SEROquel) 50 mg QHS PO Last administered on 02/14/18 20: 29; Start 02/13/18 at 23:00; Stop 02/15/18 at 17:11; Status DC Trazodone HCl (Desyrel) 50 mg QHS PO Last administered on 03/01/18 20:15; Start 02/13/18 at 23:00 Acetaminophen (Tylenol) 650 mg PRN Q6HRS PRN PO PAIN / TEMP Last administered on 02/16/18 20:08; Start 02/13/18 at 22:30 Clopidogrel Bisulfate (Plavix) 75 mg DAILY PO Last administered on 03/01/18 08 :01; Start 02/14/18 at 09:00 Insulin Glargine (Lantus) 32 units QHS SQ Last administered on 03/01/18 20:18 ; Start 02/13/18 at 23:00 Levothyroxine Sodium (Synthroid) 100 mcg DAILYAC PO Last administered on at 07:44; Start 02/14/18 at 07:30; Stop 02/23/18 at 07:54; Status DC Potassium Chloride (Klor-Con) 20 meq DAILY PO Last administered on 03/01/18 08 :01; Start 02/14/18 at 09:00 Diltiazem HCl (Cardizem) 45 mg DAILY PO Last administered on 03/01/18 08:01; Start 02/14/18 at 09:00 Pantoprazole Sodium (Protonix) 40 mg DAILYAC PO Last administered on 03/01/18 07:59; Start 02/14/18 at 07:30 Oxycodone HCl (Roxicodone) 5 mg PRN Q8HRS PRN PO PAIN Last administered on 03/01 20:20; Start 02/13/18 at 22:30 Prazosin HCl (Minipress) 2 mg QHS PO Last administered on 03/01/18 20:16; Start 02/13/18 at 23:00 Spironolactone (Aldactone) 25 mg DAILY PO Last administered on 03/01/18 07:59 ; Start 02/14/18 at 09:00 Insulin Human Lispro (HumaLOG) 0-7 UNITS TIDWMEALS SQ Last administered on 03/01 12:19; Start 02/14/18 at 08:00 Dextrose 12.5 gm PRN Q15MIN PRN IV SEE COMMENTS; Start 02/13/18 at 22:30 Magnesium Oxide (Magnesium Oxide) 400 mg TID PO Last administered on 03/01/18 20:15; Start 02/14/18 at 14:00 Influenza Virus Vaccine (Afluria Trivalent [id number] Syringe) 0.5 ml ONCE ONCE VAX IM ; Start 02/15/18 at 13:00; Stop 02/15/18 at 13:01; Status DC Pneumococcal Polyvalent Vaccine (Pneumovax 23) 0.5 ml ONCE ONCE VAX IM Last administered on 02/15/18at 13:59; Start 02/15/18 at 13:00; Stop 02/15/18 at 13:01 ; Status DC Quetiapine Fumarate (SEROquel) 75 mg QHS PO Last administered on 02/20/18at 20: 29; Start 02/15/18 at 21:00; Stop 02/21/18 at 16:57; Status DC Amoxicillin (Amoxil) 500 mg [id number] PO Last administered on 02/24/18at 07:54; Start 02/17/18 at 21:00; Stop 02/24/18 at 09:00; Status DC Lactobacillus Rhamnosus (Culturelle) 1 cap TID PO Last administered on at 20:03; Start 02/17/18 at 21:00; Stop 02/28/18 at 21:00; Status DC Loperamide HCl (Imodium) 2 mg PRN Q1HR PRN PO DIARRHEA; Start 02/17/18 at 17:30 Loperamide HCl (Imodium) 4 mg PRN DAILY PRN PO DIARRHEA Last administered on at 09:32; Start 02/17/18 at 17:30 Divalproex Sodium (Depakote Sprinkles) 125 mg BIDWMEALS PO Last administered on 02/22/18at 08:13; Start 02/19/18 at 08:00; Stop 02/22/18 at 16:37; Status DC Mupirocin (Bactroban) 1 valerie BID TP Last administered on 03/01/18at 20:18; Start 02/21/18 at 21:00 Quetiapine Fumarate (SEROquel) 100 mg QHS PO Last administered on 03/01/18 20: 16; Start 02/21/18 at 21:00 Divalproex Sodium (Depakote Sprinkles) 250 mg BIDWMEALS PO Last administered on 02/28/18at 08:18; Start 02/22/18 at 17:00; Stop 02/28/18 at 17:26; Status DC Levothyroxine Sodium (Synthroid) 100 mcg DAILY06 PO Last administered on at 07:59; Start 02/24/18 at 06:00 Cyclobenzaprine HCl (Flexeril) 5 mg PRN TID PRN PO MUSCLE SPASMS Last administered on 02/25/18at 15:05; Start 02/23/18 at 09:45; Stop 02/28/18 at 09:45 ; Status DC Divalproex Sodium (Depakote Sprinkles) 250 mg DAILY PO Last administered on 03/01/18at 08:05; Start 03/01/18 at 09:00 Divalproex Sodium (Depakote Sprinkles) 500 mg DAILY@1700 PO Last administered on 03/01/18at 17:28; Start 02/28/18 at 17:30 Active Scripts Active Reported Tylenol (Acetaminophen) 325 Mg Tablet 650 Mg PO PRN Q6HRS PRN Trazodone Hcl 50 Mg Tablet 50 Mg PO QHS Seroquel (Quetiapine Fumarate) 50 Mg Tablet 50 Mg PO QHS Prazosin Hcl 2 Mg Capsule 2 Mg PO QHS Klor-Con M20 (Potassium Chloride) 20 Meq Tab.er.prt 20 Meq PO DAILY Oxycodone Hcl 5 Mg Capsule 5 Mg PO PRN Q8HRS PRN Omeprazole 20 Mg Tablet.dr 20 Mg PO DAILY Melatonin 3 Mg Tablet 6 Mg PO QHS Levothyroxine Sodium 100 Mcg Tablet 100 Mcg PO DAILYAC Lantus Solostar (Insulin Glargine,Hum.rec.anlog) 100 Unit/1 Ml Insuln.pen 32 Unit SQ QHS Fluoxetine Hcl 40 Mg Capsule 40 Mg PO DAILY Fluoxetine Hcl 20 Mg Tablet 20 Mg PO DAILY Estradiol 1 Mg Tablet 1 Mg PO DAILY Diltiazem Hcl Tablet (Diltiazem Hcl) 90 Mg Tablet 45 Mg PO DAILY Clopidogrel (Clopidogrel Bisulfate) 75 Mg Tablet 75 Mg PO DAILY Aldactone (Spironolactone) 25 Mg Tablet 25 Mg PO DAILY I have reviewed the current psychotropics carefully including drug interactions. Risk benefit ratio favors no change other than as noted in my dictated progress note. 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
--- NOTE | 2018-03-01 23:42 | PN ---
DATE: 02/28/2018 PSYCHIATRIC PROGRESS NOTE This late entry 02/28/2018 covers elements not covered in my initial note. SUBJECTIVE: I met with the patient in the evening. The patient slept 8-1/4 hours previous evening. Remains somewhat withdrawn, a little labile, and anxious at times. REVIEW OF SYSTEMS: Ambulation impaired, in wheelchair. No CV, , pulmonary, eye system symptoms on review. He had wet himself and I requested nursing staff to intervene even though they just changed him 10 minutes earlier. MENTAL STATUS EXAM: Oriented to himself and situation. Speech is coherent, has some latency. Abstraction fair, computation impaired, language function intact, attention span short. Mood and affect remain somewhat withdrawn. LABORATORY DATA: Reviewed. No active suicidal ideation. IMPRESSION: Major depressive disorder with psychotic features versus bipolar 1 disorder, mixed with psychotic features; cognitive disorder, unspecified. PLAN: Valproic acid level subtherapeutic at 24; on Depakote 250 b.i.d., we will change to 250 a.m., 500 p.m. Check CBC, CMP, valproic acid level in 3 days. Continue rest unchanged. MAN MBrisa RADER MD DR: NIRAJ/yani JOB#: [id number] / [id number]
[2018-03-02 05:49] VITALS: BP 131/65
[2018-03-02] MEDS: INSULIN LISPRO 300 UNITS/3 ML INSULN.PEN. SQ SCH ×3 (08:00→17:38)
[2018-03-02] MEDS: SPIRONOLACTONE 25 MG TABLET PO SCH (08:22)
[2018-03-02] MEDS: FLUoxetine HCL 20 MG CAPSULE PO SCH (08:23)
[2018-03-02] MEDS: LEVOTHYROXINE 100 MCG TABLET PO SCH (08:24)
[2018-03-02] MEDS: CLOPIDOGREL BISULFATE 75 MG TABLET PO SCH (08:24)
[2018-03-02] MEDS: ESTRADIOL 1 MG TABLET PO SCH (08:24)
[2018-03-02] MEDS: dilTIAZem HCL 30 MG TABLET PO SCH (08:24)
[2018-03-02] MEDS: DIVALPROEX 125 MG CAP.SPRINK PO SCH ×2 (08:25→17:36)
[2018-03-02] MEDS: POTASSIUM CHLORIDE 20 MEQ TABLET.ER. PO SCH (08:25)
[2018-03-02] MEDS: MAGNESIUM OXIDE 400 MG TABLET PO SCH ×3 (08:26→19:48)
[2018-03-02] MEDS: MUPIROCIN 2% TOPICAL OINTMENT 22GM TUBE. TP SCH ×2 (08:32→19:52)
[2018-03-02] MEDS: PANTOPRAZOLE 40 MG TABLET. PO SCH (08:33)
[2018-03-02] MEDS: oxyCODONE IR 5 MG TABLET PO PRN (12:20)
[2018-03-02] MEDS: LOPERAMIDE 2 MG CAPSULE PO PRN (12:22)
[2018-03-02 15:39] VITALS: BP 120/65
[2018-03-02] MEDS: QUEtiapine 50 MG TABLET. PO SCH (19:47)
[2018-03-02] MEDS: MELATONIN 3 MG TABLET PO SCH (19:47)
[2018-03-02] MEDS: traZODone 50 MG TABLET. PO SCH (19:48)
[2018-03-02] MEDS: PRAZOSIN 1 MG CAPSULE. PO SCH (19:48)
[2018-03-02] MEDS: INSULIN GLARGINE 300 UNITS/3 ML INSULN.PEN. SQ SCH (19:57)
--- NOTE | 2018-03-02 20:48 | PDOC ---
Exam Note: Giovanny Note: Please also refer to the separate dictated note~for this date of service dictated separately.~Patient seen individually. Discussed the patient with Nursing staff reviewed the chart.~Reviewed interim history and current functioning. Reviewed vital signs,~Labs/ Radiology~and current medications noted below. Continue current treatment with the changes noted in the dictated addendum note Assessment: Vital Signs: Vital Signs Date Time Temp Pulse Resp B/P (MAP) Pulse Ox O2 Delivery O2 Flow Rate FiO2 03/02/18 19:48 77 120/65 03/02/18 15:39 97.6 18 98 03/02/18 15:00 Room Air I&O Intake and Output 03/02/18 07:00 Intake Total 1440 ml Balance 1440 ml Intake Oral 1440 ml # Voids 1 # Bowel Movements 2 Labs: Laboratory Tests Test 03/02/18 07:10 03/02/18 11:39 03/02/18 16:37 03/02/18 19:52 Glucose (Fingerstick) 129 mg/dL (70-99) H 177 mg/dL (70-99) H 172 mg/dL (70-99) H 184 mg/dL (70-99) H Current Medications: Meds: Current Medications Magnesium Chloride (Mag Delay) 64 mg 1X ONCE PO Last administered on at 20:39; Start 02/13/18 at 20:00; Stop 02/13/18 at 20:01; Status DC Acetaminophen (Tylenol) 650 mg PRN Q6HRS PRN PO PAIN / TEMP; Start 02/13/18 at 21:30; Stop 02/13/18 at 22:41; Status DC Multi-Ingredient Ointment (Analgesic [place]) 1 valerie PRN QID PRN TP MUSCLE PAIN; Start 02/13/18 at 21:30 Al Hydroxide/Mg Hydroxide (Mylanta Plus Xs) 15 ml PRN AFTMEALHC PRN PO DYSPEPSIA; Start 02/13/18 at 21:30 Magnesium Hydroxide (Milk Of Magnesia) 2,400 mg PRN QHS PRN PO CONSTIPATION; Start 02/13/18 at 21:30 Nicotine (Nicoderm Cq 14mg) 1 patch DAILY TD Last administered on 02/15/18at 08: 45; Start 02/14/18 at 09:00; Stop 02/15/18 at 15:45; Status DC Estradiol (Estrace) 1 mg DAILY PO Last administered on 03/02/18 08:24; Start 02/14/18 at 09:00 Fluoxetine HCl (PROzac) 60 mg DAILY PO Last administered on 03/02/18 08:23; Start 02/14/18 at 09:00 Non-Formulary Medication (Fluoxetine Hcl ) 40 mg DAILY PO ; Start 02/14/18 at 09 :00; Stop 02/14/18 at 09:00; Status DC Melatonin 6 mg QHS PO Last administered on 03/02/18 19:47; Start 02/13/18 at 23:00 Quetiapine Fumarate (SEROquel) 50 mg QHS PO Last administered on 02/14/18 20: 29; Start 02/13/18 at 23:00; Stop 02/15/18 at 17:11; Status DC Trazodone HCl (Desyrel) 50 mg QHS PO Last administered on 03/02/18 19:48; Start 02/13/18 at 23:00 Acetaminophen (Tylenol) 650 mg PRN Q6HRS PRN PO PAIN / TEMP Last administered on 02/16/18 20:08; Start 02/13/18 at 22:30 Clopidogrel Bisulfate (Plavix) 75 mg DAILY PO Last administered on 03/02/18 08 :24; Start 02/14/18 at 09:00 Insulin Glargine (Lantus) 32 units QHS SQ Last administered on 03/02/18 19:57 ; Start 02/13/18 at 23:00 Levothyroxine Sodium (Synthroid) 100 mcg DAILYAC PO Last administered on 07:44; Start 02/14/18 at 07:30; Stop 02/23/18 at 07:54; Status DC Potassium Chloride (Klor-Con) 20 meq DAILY PO Last administered on 03/02/18 08 :25; Start 02/14/18 at 09:00 Diltiazem HCl (Cardizem) 45 mg DAILY PO Last administered on 03/02/18 08:24; Start 02/14/18 at 09:00 Pantoprazole Sodium (Protonix) 40 mg DAILYAC PO Last administered on 03/02/18 08:33; Start 02/14/18 at 07:30 Oxycodone HCl (Roxicodone) 5 mg PRN Q8HRS PRN PO PAIN Last administered on 03/02 12:20; Start 02/13/18 at 22:30 Prazosin HCl (Minipress) 2 mg QHS PO Last administered on 03/02/18 19:48; Start 02/13/18 at 23:00 Spironolactone (Aldactone) 25 mg DAILY PO Last administered on 03/02/18 08:22 ; Start 02/14/18 at 09:00 Insulin Human Lispro (HumaLOG) 0-7 UNITS TIDWMEALS SQ Last administered on 03/02 17:38; Start 02/14/18 at 08:00 Dextrose 12.5 gm PRN Q15MIN PRN IV SEE COMMENTS; Start 02/13/18 at 22:30 Magnesium Oxide (Magnesium Oxide) 400 mg TID PO Last administered on 03/02/18 19:48; Start 02/14/18 at 14:00 Influenza Virus Vaccine (Afluria Trivalent [id number] Syringe) 0.5 ml ONCE ONCE VAX IM ; Start 02/15/18 at 13:00; Stop 02/15/18 at 13:01; Status DC Pneumococcal Polyvalent Vaccine (Pneumovax 23) 0.5 ml ONCE ONCE VAX IM Last administered on 02/15/18at 13:59; Start 02/15/18 at 13:00; Stop 02/15/18 at 13:01 ; Status DC Quetiapine Fumarate (SEROquel) 75 mg QHS PO Last administered on 02/20/18at 20: 29; Start 02/15/18 at 21:00; Stop 02/21/18 at 16:57; Status DC Amoxicillin (Amoxil) 500 mg [id number] PO Last administered on 02/24/18at 07:54; Start 02/17/18 at 21:00; Stop 02/24/18 at 09:00; Status DC Lactobacillus Rhamnosus (Culturelle) 1 cap TID PO Last administered on at 20:03; Start 02/17/18 at 21:00; Stop 02/28/18 at 21:00; Status DC Loperamide HCl (Imodium) 2 mg PRN Q1HR PRN PO DIARRHEA; Start 02/17/18 at 17:30 Loperamide HCl (Imodium) 4 mg PRN DAILY PRN PO DIARRHEA Last administered on 12:22; Start 02/17/18 at 17:30 Divalproex Sodium (Depakote Sprinkles) 125 mg BIDWMEALS PO Last administered on 02/22/18 08:13; Start 02/19/18 at 08:00; Stop 02/22/18 at 16:37; Status DC Mupirocin (Bactroban) 1 valerie BID TP Last administered on 03/02/18 19:52; Start 02/21/18 at 21:00 Quetiapine Fumarate (SEROquel) 100 mg QHS PO Last administered on 03/02/18 19: 47; Start 02/21/18 at 21:00 Divalproex Sodium (Depakote Sprinkles) 250 mg BIDWMEALS PO Last administered on 02/28/18 08:18; Start 02/22/18 at 17:00; Stop 02/28/18 at 17:26; Status DC Levothyroxine Sodium (Synthroid) 100 mcg DAILY06 PO Last administered on at 07:59; Start 02/24/18 at 06:00 Cyclobenzaprine HCl (Flexeril) 5 mg PRN TID PRN PO MUSCLE SPASMS Last administered on 02/25/18at 15:05; Start 02/23/18 at 09:45; Stop 02/28/18 at 09:45 ; Status DC Divalproex Sodium (Depakote Sprinkles) 250 mg DAILY PO Last administered on 08:25; Start 03/01/18 at 09:00 Divalproex Sodium (Depakote Sprinkles) 500 mg DAILY@1700 PO Last administered on 03/02/18 17:36; Start 02/28/18 at 17:30 Active Scripts Active Reported Tylenol (Acetaminophen) 325 Mg Tablet 650 Mg PO PRN Q6HRS PRN Trazodone Hcl 50 Mg Tablet 50 Mg PO QHS Seroquel (Quetiapine Fumarate) 50 Mg Tablet 50 Mg PO QHS Prazosin Hcl 2 Mg Capsule 2 Mg PO QHS Klor-Con M20 (Potassium Chloride) 20 Meq Tab.er.prt 20 Meq PO DAILY Oxycodone Hcl 5 Mg Capsule 5 Mg PO PRN Q8HRS PRN Omeprazole 20 Mg Tablet.dr 20 Mg PO DAILY Melatonin 3 Mg Tablet 6 Mg PO QHS Levothyroxine Sodium 100 Mcg Tablet 100 Mcg PO DAILYAC Lantus Solostar (Insulin Glargine,Hum.rec.anlog) 100 Unit/1 Ml Insuln.pen 32 Unit SQ QHS Fluoxetine Hcl 40 Mg Capsule 40 Mg PO DAILY Fluoxetine Hcl 20 Mg Tablet 20 Mg PO DAILY Estradiol 1 Mg Tablet 1 Mg PO DAILY Diltiazem Hcl Tablet (Diltiazem Hcl) 90 Mg Tablet 45 Mg PO DAILY Clopidogrel (Clopidogrel Bisulfate) 75 Mg Tablet 75 Mg PO DAILY Aldactone (Spironolactone) 25 Mg Tablet 25 Mg PO DAILY I have reviewed the current psychotropics carefully including drug interactions. Risk benefit ratio favors no change other than as noted in my dictated progress note. 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
--- NOTE | 2018-03-02 23:03 | PN ---
DATE: 03/01/2018 This late entry for 03/01/2018 covers elements not covered in my initial note. SUBJECTIVE: I met with the patient in the evening. The patient slept 9-1/4 hours previous night. He gets a little impatient, demanding. He would be attended to immediately after he requests any intervention. At one point, he put his hand in the pocket of one of the female nurses, who was helping change him. He did redirect. REVIEW OF SYSTEMS: Ambulation impaired. No CV, , pulmonary, eye, ENT system symptoms on review. MENTAL STATUS EXAM: Reasonably oriented. Speech is coherent, has some latency. Abstraction fair. Computation able to do two steps on serial 7's. No suicidal or homicidal ideation. He has not been eating, inanimate objects or doing other bizarre behaviors that prompted this admission. LABORATORY DATA: Reviewed. IMPRESSION: Bipolar 1 disorder, mixed; anxiety disorder, unspecified; impulse control disorder. PLAN: Depakote has been increased. Repeat labs due on 03/03/2018. Maintain rest of the psychotropics unchanged for now. MAN Gertrude RADER MD DR: NIRAJ/yani JOB#: [id number] / [id number]
[2018-03-03 05:42] VITALS: BP 103/60
[2018-03-03] MEDS: LEVOTHYROXINE 100 MCG TABLET PO SCH (06:23)
[2018-03-03] MEDS ORDERED: METH29OI TP (06:45)
[2018-03-03] MEDS ORDERED: DIVA125C2 PO ×2 (06:47→06:48)
[2018-03-03] MEDS ORDERED: MAG30ORA2 PO (07:24)
[2018-03-03] MEDS ORDERED: MAGN400T3 PO (07:25)
[2018-03-03] MEDS ORDERED: LOPE2TAB27 PO ×2 (07:26→07:27)
[2018-03-03] MEDS ORDERED: MAGN400O7 PO (07:27)
[2018-03-03 07:39] LABS: BASO % 1 % (0-3); EOS # 0.2 x10^3/uL (0.0-0.7); EOS % 2 % (0-3); HEMATOCRIT 35.7 % (39.0-53.0); HEMOGLOBIN 11.7 g/dL (13.0-17.5); LYMPH # 1.9 x10^3/uL (1.0-4.8); LYMPH % 21 % (24-48); MEAN CORPUSCULAR HEMOGLOBIN 26 pg (25-35); MEAN CORPUSCULAR HGB CONC 33 g/dL (31-37); MEAN CORPUSCULAR VOLUME 79 fL (79-100); MONO # 0.7 x10^3/uL (0.0-1.1); MONO % 8 % (0-9); NEUT # 5.9 x10^3uL (1.8-7.7); NEUT % 68 % (31-73); PLATELET COUNT 189 x10^3/uL (140-400); RED BLOOD COUNT 4.51 x10^6/uL (4.30-5.70); RED CELL DISTRIBUTION WIDTH 14.5 % (11.5-14.5); WHITE BLOOD COUNT 8.7 x10^3/uL (4.0-11.0)
[2018-03-03] MEDS ORDERED: INSU100V SQ (07:39)
[2018-03-03] MEDS ORDERED: INSU100I11 SQ (07:42)
[2018-03-03 07:46] LABS: ALBUMIN/GLOBULIN RATIO 0.9 (1.0-1.7); ALK PHOS 71 U/L (46-116); ALT (SGPT) 16 U/L (16-63); ANION GAP 3 (6-14); AST (SGOT) 11 U/L (15-37); BLOOD UREA NITROGEN 22 mg/dL (8-26); BUN/CREATININE RATIO 16 (6-20); CALCIUM 8.8 mg/dL (8.5-10.1); CARBON DIOXIDE 36 mmol/L (21-32); CHLORIDE 104 mmol/L (98-107); CREATININE 1.4 mg/dL (0.7-1.3); GFR 50.2; GLUCOSE 99 mg/dL (70-99); POTASSIUM 4.7 mmol/L (3.5-5.1); SODIUM 143 mmol/L (136-145); TOTAL BILIRUBIN 0.3 mg/dL (0.2-1.0); TOTAL PROTEIN 6.4 g/dL (6.4-8.2)
[2018-03-03 07:49] LABS: VAL ACID 34 mcg/mL (50-100)
[2018-03-03] MEDS ORDERED: MUPI22OI2 TP (07:53)
[2018-03-03] MEDS: INSULIN LISPRO 300 UNITS/3 ML INSULN.PEN. SQ SCH (08:00)
[2018-03-03] MEDS: MAGNESIUM OXIDE 400 MG TABLET PO SCH (08:09)
[2018-03-03] MEDS: MUPIROCIN 2% TOPICAL OINTMENT 22GM TUBE. TP SCH (08:09)
[2018-03-03 08:10] VITALS: BP 103/60
[2018-03-03] MEDS: dilTIAZem HCL 30 MG TABLET PO SCH (08:10)
[2018-03-03] MEDS: SPIRONOLACTONE 25 MG TABLET PO SCH (08:10)
[2018-03-03] MEDS: DIVALPROEX 125 MG CAP.SPRINK PO SCH (08:10)
[2018-03-03] MEDS: CLOPIDOGREL BISULFATE 75 MG TABLET PO SCH (08:11)
[2018-03-03] MEDS: FLUoxetine HCL 20 MG CAPSULE PO SCH (08:11)
[2018-03-03] MEDS: ESTRADIOL 1 MG TABLET PO SCH (08:11)
[2018-03-03] MEDS: PANTOPRAZOLE 40 MG TABLET. PO SCH (08:11)
[2018-03-03] MEDS: POTASSIUM CHLORIDE 20 MEQ TABLET.ER. PO SCH (08:11)
[2018-03-03] MEDS ORDERED: NICO1PAT25 TD (09:31)
--- NOTE | 2018-03-03 20:30 | PDOC ---
Exam Note: Giovanny Note: Please also refer to the separate dictated note~for this date of service dictated separately.~Patient seen individually. Discussed the patient with Nursing staff reviewed the chart.~Reviewed interim history and current functioning. Reviewed vital signs,~Labs/ Radiology~and current medications noted below. Continue current treatment with the changes noted in the dictated addendum note Assessment: Vital Signs: Vital Signs Date Time Temp Pulse Resp B/P (MAP) Pulse Ox O2 Delivery O2 Flow Rate FiO2 03/03/18 08:10 67 103/60 03/03/18 05:42 98.1 20 92 Room Air I&O Intake and Output 03/03/18 07:00 Intake Total 1200 ml Balance 1200 ml Intake Oral 1200 ml # Bowel Movements 2 Labs: Laboratory Tests Test 03/03/18 06:46 03/03/18 07:36 White Blood Count 8.7 x10^3/uL (4.0-11.0) Red Blood Count 4.51 x10^6/uL (4.30-5.70) Hemoglobin 11.7 g/dL (13.0-17.5) L Hematocrit 35.7 % (39.0-53.0) L Mean Corpuscular Volume 79 fL (79-100) Mean Corpuscular Hemoglobin 26 pg (25-35) Mean Corpuscular Hemoglobin Concent 33 g/dL (31-37) Red Cell Distribution Width 14.5 % (11.5-14.5) Platelet Count 189 x10^3/uL (140-400) Neutrophils (%) (Auto) 68 % (31-73) Lymphocytes (%) (Auto) 21 % (24-48) L Monocytes (%) (Auto) 8 % (0-9) Eosinophils (%) (Auto) 2 % (0-3) Basophils (%) (Auto) 1 % (0-3) Neutrophils # (Auto) 5.9 x10^3uL (1.8-7.7) Lymphocytes # (Auto) 1.9 x10^3/uL (1.0-4.8) Monocytes # (Auto) 0.7 x10^3/uL (0.0-1.1) Eosinophils # (Auto) 0.2 x10^3/uL (0.0-0.7) Basophils # (Auto) 0.0 x10^3/uL (0.0-0.2) Sodium Level 143 mmol/L (136-145) Potassium Level 4.7 mmol/L (3.5-5.1) Chloride Level 104 mmol/L (98-107) Carbon Dioxide Level 36 mmol/L (21-32) H Anion Gap 3 (6-14) L Blood Urea Nitrogen 22 mg/dL (8-26) Creatinine 1.4 mg/dL (0.7-1.3) H Estimated GFR (Cockcroft-Gault) 50.2 BUN/Creatinine Ratio 16 (6-20) Glucose Level 99 mg/dL (70-99) Calcium Level 8.8 mg/dL (8.5-10.1) Total Bilirubin 0.3 mg/dL (0.2-1.0) Aspartate Amino Transferase (AST) 11 U/L (15-37) L Alanine Aminotransferase (ALT) 16 U/L (16-63) Alkaline Phosphatase 71 U/L (46-116) Total Protein 6.4 g/dL (6.4-8.2) Albumin 3.0 g/dL (3.4-5.0) L Albumin/Globulin Ratio 0.9 (1.0-1.7) L Valproic Acid Level 34 mcg/mL (50-100) L Valproic Acid Last Dose Date 03/02/2018 Valproic Acid Last Dose Time 1700 Glucose (Fingerstick) 108 mg/dL (70-99) H Current Medications: Meds: Current Medications Magnesium Chloride (Mag Delay) 64 mg 1X ONCE PO Last administered on at 20:39; Start 02/13/18 at 20:00; Stop 02/13/18 at 20:01; Status DC Acetaminophen (Tylenol) 650 mg PRN Q6HRS PRN PO PAIN / TEMP; Start 02/13/18 at 21:30; Stop 02/13/18 at 22:41; Status DC Multi-Ingredient Ointment (Analgesic Lincoln) 1 samantha PRN QID PRN TP MUSCLE PAIN; Start 02/13/18 at 21:30; Stop 03/03/18 at 11:37; Status DC Al Hydroxide/Mg Hydroxide (Mylanta Plus Xs) 15 ml PRN AFTMEALHC PRN PO DYSPEPSIA; Start 02/13/18 at 21:30; Stop 03/03/18 at 11:37; Status DC Magnesium Hydroxide (Milk Of Magnesia) 2,400 mg PRN QHS PRN PO CONSTIPATION; Start 02/13/18 at 21:30; Stop 03/03/18 at 11:37; Status DC Nicotine (Nicoderm Cq 14mg) 1 patch DAILY TD Last administered on 02/15/18at 08: 45; Start 02/14/18 at 09:00; Stop 02/15/18 at 15:45; Status DC Estradiol (Estrace) 1 mg DAILY PO Last administered on 03/03/18at 08:11; Start 02/14/18 at 09:00; Stop 03/03/18 at 11:37; Status DC Fluoxetine HCl (PROzac) 60 mg DAILY PO Last administered on 03/03/18 08:11; Start 02/14/18 at 09:00; Stop 03/03/18 at 11:37; Status DC Non-Formulary Medication (Fluoxetine Hcl ) 40 mg DAILY PO ; Start 02/14/18 at 09 :00; Stop 02/14/18 at 09:00; Status DC Melatonin 6 mg QHS PO Last administered on 03/02/18at 19:47; Start 02/13/18 at 23:00; Stop 03/03/18 at 11:37; Status DC Quetiapine Fumarate (SEROquel) 50 mg QHS PO Last administered on 02/14/18at 20: 29; Start 02/13/18 at 23:00; Stop 02/15/18 at 17:11; Status DC Trazodone HCl (Desyrel) 50 mg QHS PO Last administered on 03/02/18at 19:48; Start 02/13/18 at 23:00; Stop 03/03/18 at 11:37; Status DC Acetaminophen (Tylenol) 650 mg PRN Q6HRS PRN PO PAIN / TEMP Last administered on 02/16/18at 20:08; Start 02/13/18 at 22:30; Stop 03/03/18 at 11:37; Status DC Clopidogrel Bisulfate (Plavix) 75 mg DAILY PO Last administered on 03/03/18 08 :11; Start 02/14/18 at 09:00; Stop 03/03/18 at 11:37; Status DC Insulin Glargine (Lantus) 32 units QHS SQ Last administered on 03/02/18 19:57 ; Start 02/13/18 at 23:00; Stop 03/03/18 at 11:37; Status DC Levothyroxine Sodium (Synthroid) 100 mcg DAILYAC PO Last administered on at 07:44; Start 02/14/18 at 07:30; Stop 02/23/18 at 07:54; Status DC Potassium Chloride (Klor-Con) 20 meq DAILY PO Last administered on 03/03/18 08 :11; Start 02/14/18 at 09:00; Stop 03/03/18 at 11:37; Status DC Diltiazem HCl (Cardizem) 45 mg DAILY PO Last administered on 03/03/18 08:10; Start 02/14/18 at 09:00; Stop 03/03/18 at 11:37; Status DC Pantoprazole Sodium (Protonix) 40 mg DAILYAC PO Last administered on 03/03/18 08:11; Start 02/14/18 at 07:30; Stop 03/03/18 at 11:37; Status DC Oxycodone HCl (Roxicodone) 5 mg PRN Q8HRS PRN PO PAIN Last administered on 03/02 12:20; Start 02/13/18 at 22:30; Stop 03/03/18 at 11:37; Status DC Prazosin HCl (Minipress) 2 mg QHS PO Last administered on 03/02/18 19:48; Start 02/13/18 at 23:00; Stop 03/03/18 at 11:37; Status DC Spironolactone (Aldactone) 25 mg DAILY PO Last administered on 03/03/18 08:10 ; Start 02/14/18 at 09:00; Stop 03/03/18 at 11:37; Status DC Insulin Human Lispro (HumaLOG) 0-7 UNITS TIDWMEALS SQ Last administered on 03/02 17:38; Start 02/14/18 at 08:00; Stop 03/03/18 at 11:37; Status DC Dextrose 12.5 gm PRN Q15MIN PRN IV SEE COMMENTS; Start 02/13/18 at 22:30; Stop 03/03/18 at 11:37; Status DC Magnesium Oxide (Magnesium Oxide) 400 mg TID PO Last administered on 03/03/18 08:09; Start 02/14/18 at 14:00; Stop 03/03/18 at 11:37; Status DC Influenza Virus Vaccine (Afluria Trivalent 1206-2474 Syringe) 0.5 ml ONCE ONCE VAX IM ; Start 02/15/18 at 13:00; Stop 02/15/18 at 13:01; Status DC Pneumococcal Polyvalent Vaccine (Pneumovax 23) 0.5 ml ONCE ONCE VAX IM Last administered on 02/15/18at 13:59; Start 02/15/18 at 13:00; Stop 02/15/18 at 13:01 ; Status DC Quetiapine Fumarate (SEROquel) 75 mg QHS PO Last administered on 02/20/18at 20: 29; Start 02/15/18 at 21:00; Stop 02/21/18 at 16:57; Status DC Amoxicillin (Amoxil) 500 mg [id number] PO Last administered on 02/24/18at 07:54; Start 02/17/18 at 21:00; Stop 02/24/18 at 09:00; Status DC Lactobacillus Rhamnosus (Culturelle) 1 cap TID PO Last administered on at 20:03; Start 02/17/18 at 21:00; Stop 02/28/18 at 21:00; Status DC Loperamide HCl (Imodium) 2 mg PRN Q1HR PRN PO DIARRHEA; Start 02/17/18 at 17:30 ; Stop 03/03/18 at 11:37; Status DC Loperamide HCl (Imodium) 4 mg PRN DAILY PRN PO DIARRHEA Last administered on at 12:22; Start 02/17/18 at 17:30; Stop 03/03/18 at 11:37; Status DC Divalproex Sodium (Depakote Sprinkles) 125 mg BIDWMEALS PO Last administered on 02/22/18at 08:13; Start 02/19/18 at 08:00; Stop 02/22/18 at 16:37; Status DC Mupirocin (Bactroban) 1 samantha BID TP Last administered on 03/03/18 08:09; Start 02/21/18 at 21:00; Stop 03/03/18 at 11:37; Status DC Quetiapine Fumarate (SEROquel) 100 mg QHS PO Last administered on 03/02/18at 19: 47; Start 02/21/18 at 21:00; Stop 03/03/18 at 11:37; Status DC Divalproex Sodium (Depakote Sprinkles) 250 mg BIDWMEALS PO Last administered on 02/28/18at 08:18; Start 02/22/18 at 17:00; Stop 02/28/18 at 17:26; Status DC Levothyroxine Sodium (Synthroid) 100 mcg DAILY06 PO Last administered on at 06:23; Start 02/24/18 at 06:00; Stop 03/03/18 at 11:37; Status DC Cyclobenzaprine HCl (Flexeril) 5 mg PRN TID PRN PO MUSCLE SPASMS Last administered on 02/25/18at 15:05; Start 02/23/18 at 09:45; Stop 02/28/18 at 09:45 ; Status DC Divalproex Sodium (Depakote Sprinkles) 250 mg DAILY PO Last administered on 03/03/18at 08:10; Start 03/01/18 at 09:00; Stop 03/03/18 at 11:37; Status DC Divalproex Sodium (Depakote Sprinkles) 500 mg DAILY@1700 PO Last administered on 03/02/18at 17:36; Start 02/28/18 at 17:30; Stop 03/03/18 at 11:37; Status DC Active Scripts Active Reported Mupirocin 22 Gm Oint...g. 1 Samantha TP BID Apply to scrotum BID Humalog (Insulin Lispro) 100 Unit/1 Ml Insuln.pen 0 SQ TIDWMEALS If eating: BG <70 Hypoglycemia protocol BG 70-150 0 units BG 150-199: 3 unit Insulin BG 200-249: 4 units Insulin BG 250-299: 6 units Insulin BG 300-349: 7 units Insulin BG Over 350: Notify If not eating: BG <70 Hypoglycemia protocol BG 70-150 0 units BG 150-199: 0 unit Insulin BG 200-249: 2 units Insulin BG 250-299: 3 units Insulin BG 300-349: 4 units Insulin BG Over 350: Notify Milk Of Magnesia (Magnesium Hydroxide) 400 Mg/5 Ml Oral.susp 2,400 Mg PO PRN QHS PRN Loperamide (Loperamide Hcl) 2 Mg Tablet 4 Mg PO PRN DAILY PRN Loperamide (Loperamide Hcl) 2 Mg Tablet 2 Mg PO PRN Q1HR Magnesium Oxide 400 Mg Tablet 400 Mg PO TID Mag-Al Plus Xs Suspension (Mag Hydrox/Al Hydrox/Simeth) 30 Ml Oral.susp 15 Ml PO PRN AFTMEALHC PRN Depakote Sprinkle (Divalproex Sodium) 125 Mg Cap.sprink 500 Mg PO DIALY@1700 Depakote Sprinkle (Divalproex Sodium) 125 Mg Cap.sprink 250 Mg PO DAILY Analgesic Lincoln (Methyl Salicylate/Menthol) 28 Gm Oint...g. 1 Samantha TP PRN QID PRN Tylenol (Acetaminophen) 325 Mg Tablet 650 Mg PO PRN Q6HRS PRN Trazodone Hcl 50 Mg Tablet 50 Mg PO QHS Seroquel (Quetiapine Fumarate) 50 Mg Tablet 100 Mg PO QHS Prazosin Hcl 2 Mg Capsule 2 Mg PO QHS Klor-Con M20 (Potassium Chloride) 20 Meq Tab.er.prt 20 Meq PO DAILY Oxycodone Hcl 5 Mg Capsule 5 Mg PO PRN Q8HRS PRN Omeprazole 20 Mg Tablet.dr 20 Mg PO DAILY Melatonin 3 Mg Tablet 6 Mg PO QHS Levothyroxine Sodium 100 Mcg Tablet 100 Mcg PO DAILYAC Lantus Solostar (Insulin Glargine,Hum.rec.anlog) 100 Unit/1 Ml Insuln.pen 32 Unit SQ QHS Fluoxetine Hcl 20 Mg Tablet 60 Mg PO DAILY Estradiol 1 Mg Tablet 1 Mg PO DAILY Diltiazem Hcl Tablet (Diltiazem Hcl) 90 Mg Tablet 45 Mg PO DAILY Clopidogrel (Clopidogrel Bisulfate) 75 Mg Tablet 75 Mg PO DAILY Aldactone (Spironolactone) 25 Mg Tablet 25 Mg PO DAILY I have reviewed the current psychotropics carefully including drug interactions. Risk benefit ratio favors no change other than as noted in my dictated progress note. 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
--- NOTE | 2018-03-04 04:04 | PN ---
DATE: 03/02/2018 This is a late entry for 03/02/2018 covers elements not covered in my initial note. SUBJECTIVE: I met with the patient in the evening, staffed at a treatment team meeting with the entire team in the morning. Nursing staff remarked how the patient is lactose intolerance and at times was taking dairy almost purposely, but all of this is improved during this hospitalization. REVIEW OF SYSTEMS: Ambulation impaired, in wheelchair. No CV, , pulmonary, eye system symptoms on review. He is not eating inanimate objects. MENTAL STATUS EXAM: Oriented reasonably. Speech coherent, less pressured. Abstraction fair, computation impaired, language function intact. Mood and affect showing less lability. LABORATORY DATA: Reviewed. IMPRESSION: Unchanged from initial note. PLAN: No change from initial note and transition to senior living on 03/03/2018. MAN Gertrude RADER MD DR: NIRAJ/yani JOB#: [id number] / [id number]
--- NOTE | 2018-03-05 11:22 | DS ---
DATE OF DISCHARGE: 03/03/2018 This is a late entry, date of service 03/03/2018 covers elements not covered in my initial note 03/03/2018. REASON FOR ADMISSION: Please refer to the admission history for details. Briefly, the patient is a 67-year-old male referred to us from [facility] by Dr. Raheel Dutta, his primary care physician on account of bizarre behaviors. The patient had been imbibing pens, dollar bills, whole sugar packets. He was throwing objects all around him, refusing cares, verbally aggressive, isolating himself. He appeared depressed, psychotic with significant mood swings. He states he had ingested a metal pin that was found in his stool, but the staffs are unsure and wondered if he had placed it in his bowel movement himself. Nevertheless behaviors were deemed dangerous, unmanageable at the nursing facility and referred for inpatient psychiatric stabilization. SIGNIFICANT FINDINGS AND CLINICAL COURSE: Following admission, the patient was seen daily individually by myself from a psychiatric standpoint, medical followup with Dr. Marks/Dr. Justin. Further historical information from the family revealed that his children were growing up he was quite verbally aggressive with some mood swings and intermittent bizarre behaviors. Further careful review of his history was suggestive of mood swings, reflective of bipolar disorder in addition to psychotic symptoms. Adjustments were made in his psychotropics and he seemed to respond to a combination of Depakote 250 mg at 900, 500 mg at 1700, trazodone 50 mg at bedtime. He was also on estradiol 1 mg daily, melatonin 6 mg at bedtime, Prozac 60 mg a day, Seroquel 100 mg p.o. at bedtime. Gradually mood appeared to improve. LABORATORY DATA: Valproic acid level were to be repeated 03/03/2018. Results should be picked up by the custodial staff as part of the followup. As his mood improved psychotic symptoms seemed to subside. None of the above bizarre behaviors were evident. He was somewhat demanding, wanting immediate response from nursing staff with some impatience, but generally was much improved at discharge. No suicidal or homicidal ideation at discharge. REVIEW OF SYSTEMS: Prior to discharge review of systems; ambulation impaired, in wheelchair. No CV, , pulmonary, eye system symptoms on review. MENTAL STATUS EXAM: Reasonably oriented. Speech coherent, has some latency. Abstraction fair, computation impaired, language function intact. Mood and affect were showing improvement. No suicidal or homicidal ideation prior to discharge. FINAL DIAGNOSES: Bipolar 1 disorder, mixed with psychotic features; anxiety disorder, unspecified; impulse control disorder, unspecified; cognitive disorder, unspecified. Rest unchanged from admission. The patient did have a positive UA at admission, treated on amoxicillin and this seemed to resolve. DISCHARGE MEDICATIONS: Please refer to the MRAD. DISCHARGE INSTRUCTIONS: Outpatient psychiatric and medical followup at the custodial. Time for discharge day management greater than 30 minutes. EMY RADER MD DR: NIRAJ/yani JOB#: [id number] / [id number]
== END 2018-03-03 10:15 | DRG 885 ==
LOC: ER 16:43 → GEROPSY 21:03
PROVIDERS: ADMIT Psychiatry & Neurology Psychiatry; ATTEND Psychiatry & Neurology Psychiatry
DX: F31.64 Bipolar disorder, current episode mixed, severe, with psychotic features (principal); E44.1 Mild protein-calorie malnutrition; I69.354 Hemiplegia and hemiparesis following cerebral infarction affecting left non-dominant side; N18.4 Chronic kidney disease, stage 4 (severe); N39.0 Urinary tract infection, site not specified; D64.9 Anemia, unspecified; E03.9 Hypothyroidism, unspecified; E11.22 Type 2 diabetes mellitus with diabetic chronic kidney disease; E73.9 Lactose intolerance, unspecified; E83.42 Hypomagnesemia; F09 Unspecified mental disorder due to known physiological condition; F63.9 Impulse disorder, unspecified; F41.9 Anxiety disorder, unspecified; I12.9 Hypertensive chronic kidney disease with stage 1 through stage 4 chronic kidney disease, or unspecified chronic kidney disease; I25.10 Atherosclerotic heart disease of native coronary artery without angina pectoris; N50.82 Scrotal pain; R13.10 Dysphagia, unspecified; Z81.8 Family history of other mental and behavioral disorders; Z82.0 Family history of epilepsy and other diseases of the nervous system; Z95.5 Presence of coronary angioplasty implant and graft; Z90.49 Acquired absence of other specified parts of digestive tract; Z68.31 Body mass index [BMI] 31.0-31.9, adult; Z88.8 Allergy status to other drugs, medicaments and biological substances; Z91.040 Latex allergy status; Z79.899 Other long term (current) drug therapy
CPT/HCPCS: 36415; 80048; 80053; 80061; 80076; 80164; 81001; 82306; 82607; 82947; 83036; 83540; 83550; 83735; 84436; 84443; 84480; 85025; 86592; 87086; 87186; 87324; 90471; 90732; 90756; 93005; 99406; 99407; J1815; P9612; 99285-25; Q2035